=== PATIENT | male | born 1965 | race Caucasian/White ===

== ENCOUNTER 2020-10-23 13:51 | Emergency (ER) | payer SELFPAY ==
--- NOTE | ~2020-10-23 | XR_ITS ---
EXAMINATION: XR chest 1V portable EXAM DATE: 10/23/2020 14:58 INDICATION: Cough, fever. TECHNIQUE: Portable AP frontal chest x-ray was obtained. There is no prior study for comparison. FINDINGS: The lungs are clear. There are no pleural effusions. The cardiomediastinal silhouette is within normal limits. There is no pneumothorax suspected. The bones and soft tissues are unremarkab le. IMPRESSION: No acute cardiopulmonary findings. Reviewed, dictated and finalized at location A.
[2020-10-23 13:53] VITALS: BP 198/133; PULSE 113; RESP 18; TEMP 37.7; O2SAT 99
--- NOTE | 2020-10-23 14:06 | PC.NURSE ---
pt reports he has not taken his blood pressure medications since last month .
--- NOTE | 2020-10-23 14:49 | ED.FEVER ---
HPI - Fever General Chief Complaint: Fever Stated Complaint: fever, Time Seen by Provider: 10/23/20 14:38 History of Present Illness HPI Narrative: 55 yo male presents to the ED for not feeling well. He reports that for the past few days he has had intermittent feeling that he is burning up . He has been taking cold showers and Excedrin, which provides very brief relief. He also reports cough and chest congestion. Additionally he is very nauseated. He has known COVID exposure. He is not vaccinated. No SOB. Related Data Allergies Allergy/AdvReac Type Severity Reaction Status Date / Time No Known Allergies Allergy Verified 10/23/20 13:55 Review of Systems Review of Systems: All systems reviewed & are unremarkable except as noted in HPI and below Eyes: Eyes: Reports no additional eye complaints ENT: Denies sore throat Cardiovascular: Cardiovascular: Denies chest pain Respiratory: Respiratory: Reports chest congestion, Reports cough and Denies dyspnea Gastrointestinal: Gastrointestinal: Denies diarrhea, Reports nausea and Denies vomiting Genitourinary: Genitourinary: Reports no additional male genitourinary complaints Musculoskeletal: Musculoskeletal: Reports myalgias Neurologic: Denies confusion, Denies dizziness and Denies weakness [facility] Past Medical History Medical History (Updated 10/24/20 @ 00:00 by Background [place]) HTN (hypertension) Social History Social History (Updated 10/23/20 @ 15:12 by Abimael Treviño MD) Substance use: never Gender identity (if verbalized by the patient): Male Exam Const: General: no acute distress and alert Orientation/consciousness: patient oriented x3 HENMT: Head: normal to inspection Neck: Neck: normal visual inspection Chest: Chest palpation & inspection: normal inspection of the chest and no tenderness Resp: Effort & Inspection: normal respiratory effort Auscultation: clear to auscultation bilaterally Cardio: Rate: tachycardic Rhythm: regular rhythm GI: GI Palp: Yes Soft to palpation and No Tenderness to palpation present (GI) Skin: General skin exam: normal color Neuro: General: patient oriented x3 and moves all extremities Extrem: General: normal to inspection and no edema Course Vital Signs Vital signs: Vital Signs Temperature 37.7 C H 10/23/20 13:53 Pulse Rate 113 H 10/23/20 13:53 Respiratory Rate 18 10/23/20 13:53 Blood Pressure 198/133 H 10/23/20 13:53 Pulse Oximetry 99 10/23/20 13:53 Temperature 37.7 C H 10/23/20 13:53 Pulse Rate 60 10/23/20 15:59 Respiratory Rate 16 10/23/20 15:59 Blood Pressure 175/124 H 10/23/20 15:59 Pulse Oximetry 100 10/23/20 15:59 MDM - Fever MDM Narrative Medical decision making narrative: BP elevated, noncompliant with meds. O2 saturation normal. Mild temperature elevation and tachycardia. Differential Diagnosis Differential diagnosis: Likely fever of unknown origin and other (COVID-19) Medical Records Attestation: I reviewed the patient's medical records. Imaging Data Radiologist's impression: ITS Impressions Chest X-Ray 10/23/20 14:59 IMPRESSION: No acute cardiopulmonary findings. Discharge Plan Discharge Clinical Impression: Upper respiratory infection Patient Disposition: Home, Self-Care Condition: Stable Instructions: Upper Respiratory Infection (ED) Prescriptions: New acetaminophen 500 mg capsule 1,000 mg PO TID PRN (Reason: fever or pain) Qty: 60 RF: 0 ondansetron HCl [Zofran] 4 mg tablet 4 mg PO Q6H PRN (Reason: nausea and vomiting) Qty: 10 RF: 0 ibuprofen 600 mg tablet 600 mg PO TID PRN (Reason: fever or pain) Qty: 30 RF: 0 Follow-up/Referrals: UNKNOWN,DOCTOR [Primary Care Provider] -
[2020-10-23] MEDS: ACETAMINOPHEN 500 MG TABLET 1000 MG PO (14:54)
[2020-10-23] MEDS: ONDANSETRON HCL ODT 4 MG TABLET 8 MG PO (14:54)
[2020-10-23] MEDS: METOPROLOL SUCCINATE EXT REL 50 MG TABCR PO (15:02)
[2020-10-23 15:59] VITALS: BP 175/124; PULSE 60; RESP 16; O2SAT 100
== END 2020-10-23 16:07 | disposition home or self-care (01) ==
PROVIDERS: Emergency Provider Emergency Medicine
DX: J06.9 Acute upper respiratory infection, unspecified (principal); I10 Essential (primary) hypertension
CPT/HCPCS: 71045; 99283; A9270

== ENCOUNTER 2021-12-29 12:27 | Emergency (ER) | payer MEDICAID, SELFPAY ==
[2021-12-29] VITALS (10 sets, daily range): BP systolic 156–185; BP diastolic 105–126; PULSE 64–71; RESP 13–20; TEMP 36.2; O2SAT 98–100
--- NOTE | 2021-12-29 13:17 | ED.MALEGU ---
HPI - Male Genitourinary General Chief complaint: Urogenital-Male Stated complaint: DIFF URINATING X2 WEEKS Time Seen by Provider: 12/29/21 13:07 Source: patient and RN notes reviewed Mode of arrival: ambulatory Limitations: no limitations History of Present Illness HPI Narrative: This is a 56 year old male with history of hypertension who presents for evaluation of difficulty urinating. Patient states for 2 weeks he has decreased stream with urination in the morning. HE also reports having increased pressure and pain with urinating in the morning. He increases his water intake throughout the day, and his stream normalizes. He also says he does not have pain with urination throughout the day. He also notes that sometimes his urine has a strong odor. He denies hematuria, abdominal pain, nausea, vomiting, back pain, chest pain or shortness of breath. Patient has history of hypertension. He moved the area 2 years ago and he had been out of his medication for 1 year. He started his antihypertensives last week. HE has appointment with Dr. Lackey tomorrow. Related Data Allergies Allergy/AdvReac Type Severity Reaction Status Date / Time No Known Allergies Allergy Verified 12/29/21 12:50 Review of Systems Review of Systems: All systems reviewed & are unremarkable except as noted in HPI and below Constitutional: Constitutional: Denies chills, Denies fatigue and Denies fever(s) Eyes: Eyes: Denies change in vision ENT: Denies nasal congestion Cardiovascular: Cardiovascular: Denies chest pain and Denies radiating jaw, neck or arm pain Respiratory: Respiratory: Denies chest congestion, Denies cough and Denies dyspnea Gastrointestinal: Gastrointestinal: Denies abdominal pain, Denies nausea and Denies vomiting Genitourinary: Genitourinary: Denies hematuria, Reports dysuria, Denies penile discharge, Reports urinary frequency and Denies urinary incontinence Musculoskeletal: Musculoskeletal: Denies back pain PMFSH Past Medical History Medical History HTN (hypertension) Social History Social History Substance use: never Gender identity (if verbalized by the patient): Male Exam Narrative: GENERAL: Well-appearing, well-nourished, and in no acute distress. HEAD: Normocephalic, atraumatic EYES: PERRLA and EOMI, conjunctiva clear without discharge THROAT:Mucous membranes moist, Oropharynx normal without erythema, exudate, peritonsillar swelling or fluctuance NECK: Supple, without lymphadenopathy or mass RESPIRATORY: No respiratory distress, Airway patent, Respirations non-labored, Clear to auscultation without rales, rhonchi or wheeze HEART: Regular rate and rhythm. No murmur heard. Normal peripheral pulses. ABDOMEN: Soft, nontender, nondistended, normal active bowel sounds. No masses. No rebound or guarding, No organomegaly. EXTREMITIES: No edema, normal strength with full range of motion. SKIN: Warm, dry, normal color without rash NEURO: Alert and oriented x3. CN 2-12 grossly intact. No focal deficits. PSYCH: Normal mood and affect. Course Reevaluation(s) Reevaluation #1: Patient has been been hypertensive but he is symptomatic . He is stable for discharge. He has appointment with Dr. Lackey tomorrow. I spoke to Dr. Lackey to make him aware of BP and he will take care of it. Patient does not have significant urinary retention and UA does not show infection. Date: 12/29/21 Time: 15:15 Vital Signs Vital signs: Vital Signs Temperature 97.1 F L 12/29/21 12:30 Pulse Rate 71 12/29/21 12:30 Respiratory Rate 16 12/29/21 12:30 Blood Pressure 156/126 H 12/29/21 12:30 Pulse Oximetry 100 12/29/21 12:30 Temperature 97.1 F L 12/29/21 12:30 Pulse Rate 66 12/29/21 14:30 Respiratory Rate 20 12/29/21 14:30 Blood Pressure 165/105 H 12/29/21 14:03 Pulse Oximetry 100 12/29/21 14
[2021-12-29 13:40] LABS: Basophils Percent Auto 0.5 % (0.2-1.2); Eosinophils Absolute Auto 0.1 K/mm3 (0-0.3); Eosinophils Percent Auto 0.6 % (0-4.4); Hemoglobin 15.4 g/dL (14.0-18.0); Immature Granulocyte Absolute 0.02 K/mm3 (0.00-0.031); Immature Granulocyte Percent A 0.3 % (0-0.5); Lymphocytes Absolute Auto 0.61 K/mm3 (0.9-3.2); Lymphocytes Percent Auto 7.6 % (18.3-44.2); Mean Corpuscular Hemoglobin 32.5 pg (26-34); Mean Corpuscular Volume 92.8 fl (80-100); Mean Platelet Volume 10.3 fl (7.4-10.4); Monocytes Absolute Auto 0.5 K/mm3 (0.1-0.6); Monocytes Percent Auto 5.9 % (2.6-8.5); Neutrophils Absolute Auto 6.8 K/mm3 (1.3-6.7); Neutrophils Percent Auto 85.1 % (45.5-73.1); Platelet Count Result 260 k/mm3 (150-375); Red Blood Count 4.74 M/mm3 (4.6-6.20); Red Cell Distribution Width 13.5 % (11.5-14.5)
[2021-12-29 13:54] LABS: Alanine Aminotransferase 24 U/L (6-50); Albumin Level 4.4 g/dL (3.5-5.1); Alkaline Phosphatase 79 U/L (38-126); Anion Gap 10 mmol/L (8-16); Aspartate Amino Transferase 24 U/L (17-59); Bilirubin,Total 0.8 mg/dL (0.2-1.3); Blood Urea Nitrogen 14 mg/dL (9-20); Calcium 8.6 mg/dL (8.4-10.2); Carbon Dioxide 25 mmol/L (22-30); Chloride 105 mmol/L (98-107); Estimated CRCL calculation 58 ml/min; Estimated Glomerular Filt Rate > 60; Glucose 102 mg/dL (65-110); Potassium 4.3 mmol/L (3.4-5.0); Sodium 140 mmol/L (137-145)
[2021-12-29 13:59] LABS: Appearance Urine Clear (Clear); Bilirubin Urine Negative (Negative); Blood Urine Negative (Negative); Color Urine Yellow (Yellow); Glucose Urine UA Trace mg/dL (Negative); Ketones Urine Negative (Negative); Leukocyte Esterase Ur Negative LEU/UL (Negative); Nitrate Urine Negative (Negative); Protein Urine 1+ mg/dL (Negative); Specific Grav Ur 1.015 (1.001-1.035); Urobilinogen Urine 0.2 mg/dL (<2.0)
[2021-12-29 14:13] LABS: RBC Urine 0-2 /hpf (0-2); WBC Urine 0-3 /hpf
[2021-12-29 14:14] LABS: Add Urine Microscopic? YES
== END 2021-12-29 15:50 | disposition home or self-care (01) ==
PROVIDERS: Emergency Provider General Practice
DX: R30.0 Dysuria (principal); I10 Essential (primary) hypertension
CPT/HCPCS: 36415; 80053; 81001; 85025; 99283

== ENCOUNTER 2022-03-31 15:42 | Outpatient (CLI) | payer MEDICAID, SELFPAY ==
[2022-03-31 15:59] LABS: Add Urine Microscopic? NO; Appearance Urine Clear (Clear); Bilirubin Urine Negative (Negative); Blood Urine Negative (Negative); Color Urine Yellow (Yellow); Glucose Urine UA Negative (Negative); Ketones Urine Negative (Negative); Leukocyte Esterase Ur Negative LEU/UL (Negative); Nitrate Urine Negative (Negative); Protein Urine Negative (Negative); Urobilinogen Urine 0.2 mg/dL (<2.0); pH Urine 6.5 (5.0-9.0)
[2022-03-31 16:06] LABS: Alanine Aminotransferase 18 U/L (6-50); Albumin Level 4.6 g/dL (3.5-5.1); Alkaline Phosphatase 74 U/L (38-126); Anion Gap 6 mmol/L (8-16); Aspartate Amino Transferase 23 U/L (17-59); Bilirubin,Total 0.5 mg/dL (0.2-1.3); Blood Urea Nitrogen 13 mg/dL (9-20); Calcium 8.6 mg/dL (8.4-10.2); Carbon Dioxide 26 mmol/L (22-30); Chloride 110 mmol/L (98-107); Cholesterol 211 mg/dL (0-200); Estimated Glomerular Filt Rate > 60; Glucose 99 mg/dL (65-110); HDL Direct 44 mg/dL; Potassium 3.9 mmol/L (3.4-5.0); Sodium 142 mmol/L (137-145); Triglycerides 158 mg/dL (<150)
[2022-03-31 16:17] LABS: LDL Cholesterol Direct 106 mg/dL
[2022-03-31 16:38] LABS: Prostate Specific Antigen 3.4 ng/mL (< OR = 4.0)
[2022-04-04 12:58] LABS: Vitamin D 1,25 (OH)2 Total 49 pg/mL (18-72); Vitamin D2 1,25 (OH)2 <8 pg/mL; Vitamin D3 1,25 (OH)2 49 pg/mL
== END 2022-03-31 15:43 | disposition home or self-care (01) ==
LOC: ANHLAB 15:45
PROVIDERS: Visit Provider Emergency Medicine
DX: I10 Essential (primary) hypertension (principal); Z12.5 Encounter for screening for malignant neoplasm of prostate; R30.0 Dysuria
CPT/HCPCS: 36415; 80053; 80061; 81003; 82652; 84153; G0103

== ENCOUNTER 2023-01-12 14:06 | Outpatient (CLI) | payer OTHER, MEDICAID, SELFPAY ==
[2023-01-12 15:25] LABS: Alanine Aminotransferase 14 U/L (6-50); Albumin Level 4.1 g/dL (3.5-5.1); Alkaline Phosphatase 68 U/L (38-126); Anion Gap 6 mmol/L (8-16); Aspartate Amino Transferase 19 U/L (17-59); Bilirubin,Total 0.7 mg/dL (0.2-1.3); Blood Urea Nitrogen 16 mg/dL (9-20); Calcium 8.5 mg/dL (8.4-10.2); Carbon Dioxide 26 mmol/L (22-30); Chloride 107 mmol/L (98-107); Cholesterol 211 mg/dL (0-200); Estimated Glomerular Filt Rate > 60; Glucose 107 mg/dL (65-110); HDL Direct 35 mg/dL; Potassium 3.8 mmol/L (3.4-5.0); Sodium 139 mmol/L (137-145); Triglycerides 152 mg/dL (<150)
[2023-01-12 15:36] LABS: LDL Cholesterol Direct 114 mg/dL
== END 2023-01-12 14:07 | disposition home or self-care (01) ==
LOC: ANHLAB 14:09
PROVIDERS: PCP Emergency Medicine; Visit Provider Emergency Medicine
DX: Z13.220 Encounter for screening for lipoid disorders (principal); I10 Essential (primary) hypertension; Z12.5 Encounter for screening for malignant neoplasm of prostate
CPT/HCPCS: 36415; 80053; 80061; 84153; G0103

== ENCOUNTER 2023-01-24 15:42 | Outpatient (CLI) | payer OTHER, MEDICAID, SELFPAY | END 2023-01-24 15:43 | disposition home or self-care (01) | LOC: ANHLAB 15:43 | PROVIDERS: PCP Emergency Medicine; Visit Provider Emergency Medicine | DX: E03.9 Hypothyroidism, unspecified (principal) | CPT/HCPCS: 36415; 84443 ==

== ENCOUNTER 2023-05-29 15:18 | Outpatient (CLI) | payer OTHER, MEDICAID, SELFPAY ==
[2023-05-29 15:53] LABS: Alanine Aminotransferase 13 U/L (6-50); Albumin Level 4.4 g/dL (3.5-5.1); Alkaline Phosphatase 68 U/L (38-126); Anion Gap 10 mmol/L (8-16); Aspartate Amino Transferase 18 U/L (17-59); Bilirubin,Total 0.7 mg/dL (0.2-1.3); Blood Urea Nitrogen 13 mg/dL (9-20); Carbon Dioxide 21 mmol/L (22-30); Chloride 108 mmol/L (98-107); Cholesterol 218 mg/dL (0-200); Estimated Glomerular Filt Rate > 60; Glucose 108 mg/dL (65-110); HDL Direct 56 mg/dL; Potassium 3.6 mmol/L (3.4-5.0); Sodium 139 mmol/L (137-145); Triglycerides 87 mg/dL (<150)
[2023-05-29 16:04] LABS: LDL Cholesterol Direct 127 mg/dL
[2023-05-29 17:22] LABS: Vitamin D 25 Hydroxy 15.9 ng/mL
== END 2023-05-29 15:19 | disposition home or self-care (01) ==
LOC: ANHLAB 15:20
PROVIDERS: PCP Emergency Medicine; Visit Provider Emergency Medicine
DX: E78.5 Hyperlipidemia, unspecified (principal); I10 Essential (primary) hypertension; E55.9 Vitamin D deficiency, unspecified
CPT/HCPCS: 36415; 80053; 80061; 82306

== ENCOUNTER 2023-11-19 14:38 | Outpatient (CLI) | payer OTHER, MEDICAID, SELFPAY ==
[2023-11-19 15:25] LABS: Alanine Aminotransferase 14 U/L (6-50); Albumin Level 4.6 g/dL (3.5-5.1); Alkaline Phosphatase 66 U/L (38-126); Anion Gap 10 mmol/L (4-12); Aspartate Amino Transferase 25 U/L (17-59); Bilirubin,Total 0.8 mg/dL (0.2-1.3); Blood Urea Nitrogen 14 mg/dL (9-20); Calcium 9.2 mg/dL (8.4-10.2); Carbon Dioxide 25 mmol/L (22-30); Chloride 105 mmol/L (98-107); Cholesterol 231 mg/dL (0-200); Estimated Glomerular Filt Rate > 60; Glucose 94 mg/dL (65-110); HDL Direct 50 mg/dL; Potassium 3.4 mmol/L (3.4-5.0); Sodium 140 mmol/L (137-145); Triglycerides 123 mg/dL (<150)
[2023-11-19 15:36] LABS: LDL Cholesterol Direct 131 mg/dL
[2023-11-23 16:48] LABS: Testosterone Free 67.8 pg/mL (35.0-155.0); Testosterone Total 506 ng/dL (250-1100)
== END 2023-11-19 14:39 | disposition home or self-care (01) ==
LOC: ANHLAB 14:43
PROVIDERS: PCP Emergency Medicine; Visit Provider Emergency Medicine
DX: E78.5 Hyperlipidemia, unspecified (principal); R53.83 Other fatigue; E55.9 Vitamin D deficiency, unspecified
CPT/HCPCS: 36415; 80053; 80061; 82306; 84402; 84403

== ENCOUNTER 2024-04-21 12:00 | Emergency (ER) | payer MEDICAID, SELFPAY ==
--- NOTE | ~2024-04-21 | XR_ITS ---
EXAMINATION: XR hand RT min 3V DATE: 04/21/2024 13:37 INDICATION: Right hand dog bite. TECHNIQUE: 3 views of right hand were obtained. COMPARISON: None. FINDINGS: Alignment is normal. No fracture. 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 IMPRESSION: 1. No fracture or radiopaque foreign body. Reviewed, dictated and finalized at location B. [facility]
[2024-04-21 12:12] VITALS: BP 157/94; PULSE 67; RESP 16; TEMP 36.7; O2SAT 99
--- NOTE | 2024-04-21 13:16 | ED_ITS ---
HPI - General Adult General Chief complaint: Animal Bite Stated complaint: dog bite to right hand Time Seen by Provider: 04/21/24 12:28 History of Present Illness HPI narrative: 59-year-old male presents to the emergency department for evaluation for a dog bite to the palmar aspect of the right hand. Injury happened today. Patient reports the dog is his own. Dog is up-to-date on its immunizations. Patient denies any other injury. Patient's tetanus is not up-to-date. Patient denies any underlying medication allergies. Related Data Allergies Allergy/AdvReac Type Severity Reaction Status Date / Time No Known Allergies Allergy Verified 04/21/24 12:11 Review of Systems Review of Systems: All systems reviewed & are unremarkable except as noted in HPI and below PMFSH Past Medical History Medical History Dysuria HTN (hypertension) Social History Social History Smoking status: Never smoker Substance use: never Do You Feel Safe in your Home?: Yes Lack of Transportation: No Lack of Food: Never True Current Housing: I Have Housing Concerned About Future Housing: YES Difficulty Paying Gas/Electric Bills: YES Difficulty Paying for Meds: No Currently Unemployed: YES Education: High School Diploma/GED Difficulty w/ Childcare or Family Care: No Gender identity (if verbalized by the patient): Male Exam Narrative: APPEARANCE: Well appearing, no pain, no distress, well-nourished. HEAD: normocephalic, atraumatic. EYES: PERRLA/EOMI, conjunctivae clear. NOSE: Normal no drainage EARS:TMS clear with good light reflex. THROAT: Pharynx clear, no exudate. NECK: Supple. No adenopathy, no masses. RESPIRATORY: Airway patent, respirations nonlabored. Clear to auscultation bilaterally, no rales, rhonchi, wheezing. CARDIOVASCULAR: Regular rate and rhythm without murmurs rubs or gallops. ABDOMINAL: Soft, nontender, nondistended, normal bowel sounds MUSCULOSKELETAL: Moves all extremities. Strength/ROM intact, No edema, No calf tenderness. NEURO: Alert. Cranial nerves II through XII intact. Good gait. Good coordination SKIN: 3 cm laceration to the palmar aspect of the right hand Course Vital Signs Vital signs: Vital Signs Temperature 98.1 F 04/21/24 12:12 Pulse Rate 67 04/21/24 12:12 Respiratory Rate 16 04/21/24 12:12 Blood Pressure 157/94 H 04/21/24 12:12 Pulse Oximetry 99 04/21/24 12:12 Oxygen Delivery Room Air 04/21/24 12:12 Temperature 97.6 F 04/21/24 14:24 Pulse Rate 61 04/21/24 14:24 Respiratory Rate 15 04/21/24 14:24 Blood Pressure 159/64 H 04/21/24 14:24 Pulse Oximetry 98 04/21/24 14:24 Oxygen Delivery Room Air 04/21/24 12:12 Procedures Laceration Laceration 1: Site: upper extremity Side (If applicable): right Size (cm): 3 Description: linear Depth: simple, single layer Local Anesthetic: lidocaine 1% Amount of anesthesia used (mL): 3 Pre-repair: wound explored, irrigated and irrigated extensively ====== Skin Level ====== Skin layer closed with: prolene Size (cm): 4-0 Number of sutures: 3 Technique: simple, interrupted ====== Subcutaneous Layer ====== ====== Muscle Layer ====== ====== Tendon Layer ====== Medical Decision Making MDM Narrative Medical decision making narrative: 59-year-old male presents to the emergency department for evaluation for a laceration to his right hand from a dog bite. Wound was loosely approximated due to excessive gaping. X-ray was ordered to evaluate for underlying fracture this was negative. Patient's tetanus was updated. Patient was started on Augmentin emergency department. Differential Diagnosis Differential Diagnosis: Dog bite, laceration hand fracture Vital Signs Vital Signs: Vital Signs Temperature 98.1 F 04/21/24 12:12 Pulse Rate 67 04/21/24 12:12 Respiratory Rate 16 04/21/24 12:12 Blood Pressure 157/94 H 04/21/24 12:12 Pulse Oximetry 99 04/21/24 12:12 Oxygen Delivery Room Air 04/21/24 12:12 Temperature 97.6 F 04/21/24 14:24 Pulse Rate 61 04/21/24 14:24 Respiratory Rate 15 04/21/24 14:24 Blood Pressure 159/64 H 04/21/24 14:24 Pulse Oximetry 98 04/21/24 14:24 Oxygen Delivery Room Air 04/21/24 12:12 Imaging Data Radiologist's impression: Impressions Hand X-Ray 04/21/24 13:39 IMPRESSION: 1. No fracture or radiopaque foreign body. Discharge Plan Discharge Clinical Impression: Dog bite, Laceration Patient Disposition: Home, Self-Care Condition: Stable Instructions: Antibiotic Form, Animal Bite (ED), Care For Your Stitches (ED) Additional Instructions: Antibiotic as directed until completed. Wound care as directed. Have close follow-up with your primary care physician for a wound check in the next 2 days. Sutures need to be removed in 5-7 days. Patient Language: Belarusian Prescriptions: New amoxicillin-pot clavulanate 875-125 mg tablet 1 tablet PO Q12H 7 Days Qty: 14 0RF No Action escitalopram oxalate [Lexapro] 10 mg tablet 10 mg PO DAILY Qty: 90 2RF omeprazole 20 mg capsule,delayed release(DR/EC) 20 mg PO DAILY Qty: 90 2RF metoprolol succinate 100 mg tablet extended release 24 hr See Rx Instructions .ROUTE .COMPLEX Qty: 180 2RF Dose Instruction: Take 1 tablet by mouth twice daily Rx Instructions: Take 1 tablet by mouth twice daily lisinopril 40 mg tablet See Rx Instructions .ROUTE .COMPLEX Qty: 90 2RF Dose Instruction: Take 1 tablet by mouth twice daily Rx Instructions: Take 1 tablet by mouth daily amlodipine 5 mg tablet 5 mg PO DAILY Qty: 90 2RF acetaminophen 500 mg capsule 1,000 mg PO TID PRN (Reason: fever or pain) Qty: 60 0RF ibuprofen 600 mg tablet 600 mg PO TID PRN (Reason: fever or pain) Qty: 30 0RF cholecalciferol (vitamin D3) 1,250 mcg (50,000 unit) capsule 1,250 mcg PO WEEKLY Qty: 12 2RF finasteride 5 mg tablet See Rx Instructions .ROUTE .COMPLEX Qty: 90 2RF Dose Instruction: Take 1 tablet by mouth once daily Rx Instructions: Take 1 tablet by mouth once daily tamsulosin 0.4 mg capsule See Rx Instructions .ROUTE .COMPLEX Qty: 90 2RF Dose Instruction: Take 1 capsule by mouth once daily Rx Instructions: Take 1 capsule by mouth once daily Follow-up/Referrals: Mandis,Pilo E., MD [Primary Care Provider] -
[2024-04-21] MEDS: AMOXICILLIN/CLAVULANATE K 875-125 MG TAB 1 TABLET PO (14:12)
[2024-04-21] MEDS: TETANUS,DIPHTHERIA,AC PERTUSSIS ADULT (0.5 ML) BOOSTRIX IM (14:13)
[2024-04-21 14:24] VITALS: BP 159/64; PULSE 61; RESP 15; TEMP 36.4; O2SAT 98
--- OUTSIDE RECORDS SUMMARY | 2024-04-24 13:07 | XMS_ITS | Continuity of Care Document ---
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 It does not include entries that were removed or entered in error. Problem Status Onset Date Problem Type Date of Resolution Comments Source Depression Active Condition [facility] Elevated PSA Active Condition [facility] Headache Active Condition [facility] Hyperlipidemia Active Condition [facility] Diagnosis: ICD-10-CM F32.A Depression, unspecified Active Diagnosis [facility] Diagnosis: ICD-10-CM Z71.9 Counseling, unspecified Active Diagnosis [facility] Diagnosis: ICD-10-CM R03.0 Elevated blood-pressure reading, w/o diagnosis of htn Active Diagnosis [facility] Diagnosis: ICD-10-CM R45.851 Suicidal ideations Active Diagnosis [facility] Diagnosis: ICD-10-CM Z23 Encounter for immunization Active Diagnosis [facility] Diagnosis: ICD-10-CM Z59.00 Homelessness unspecified Active Diagnosis [facility] Diagnosis: ICD-10-CM Z71.89 Other specified counseling Active Diagnosis [facility] Diagnosis: ICD-10-CM Z59.811 Housing instability, housed, with risk of homelessness Active Diagnosis [facility] Diagnosis: ICD-10-CM F33.2 Major depressv disorder, recurrent severe w/o psych features Active Diagnosis [facility] Medications Combined list of outpatient medications from Department of Defense and Veterans Affairs facilities.Medications provided include 1) outpatient medications from the last 15 months, and 2) patient-reported medications. Medication Details Route Status Patient Instructions Prescription Expires Prescription Number Last Dispense Date Ordering Provider Order Date Order Qty Source CHOLECALCIF CARMEN 25MCG (1,000UNIT) TAB TAKE ONE TABLET BY MOUTH ONCE A DAY ORAL ACTIVE NAYA,ESSENCE A D 2022 [facility] ESCITALOPRA M OXALATE 10MG TAB TAKE ONE-HALF TABLET BY MOUTH ONCE A DAY FOR 14 DAYS, THEN TAKE ONE TABLET ONCE A DAY FOR 46 DAYS ORAL ACTIVE 02/13/2025 [id number] 4 JERALD RAYGOZA 2023 53 [facility] FLUOXETINE HCL 10MG CAP TAKE ONE CAPSULE BY MOUTH EVERY MORNING ORAL 02/06/2024 [id number] IRENE DOWNS JR 2022 30 [facility] Immunizations Combined list of available immunizations from the Department of Defense and Veterans Affairs facilities. Immunization Series Date Given Administered By Site Reaction Lot Number CVX Code Drug Automobile Bumper Straightener Status Comments Source INFLUENZA, SPLIT VIRUS, TRIVALENT, PF 2023 PEREZ FOSTER A LEFT DELTO ID [id number] 140 complet ed [facility] COVID-19 (PFIZER), MRNA, LNP-S, PF, NORTH-SUCROSE, 30 MCG/0.3 ML (AGES 12+ YEARS) 2023 PEREZ FOSTER A RIGHT DELTO ID [id number] 309 complet ed [facility] INFLUENZA, INJECTABLE, QUADRIVALENT, PRESERVATIVE FREE 2022 GIN DUVALL A LEFT DELTO ID [id number] 150 complet ed [facility] TDAP 2022 PEREZ FOSTER A LEFT DELTO ID [id number] 115 complet ed [facility] Results Combined list of recent chemistry, hematology and other laboratory results from Department of Defense and Veterans Affairs, ranging from 15 months to all on record, depending upon the facility. Order Name Results Value Reference Range Date Interpretation Specimen Comments Source URINALYSI S W/ CX REFLEX (STL-PB) COLOR OF URINE Light- Yellow 12/24 Specimen Type: URINE No comment entered. Ordering Provider: SOBEIDA PERSON Report Released Date/Time: Dec 25, 2023 01:57 PM Reporting Lab: [facility] [address] [facility] [address] Performing Lab: [address] [phone] [facility] URINALYSI S W/ CX REFLEX (STL-PB) BILIRUBIN.T OTAL [PRESENCE] IN URINE BY TEST STRIP Negati vemg/d L 12/24 Specimen Type: URINE No comment entered. Ordering Provider: SOBEIDA PERSON Report Released Date/Time: Dec 25, 2023 01:57 PM Reporting Lab: [address] [address] Performing Lab: [place] [phone] URINALYSI S W/ CX REFLEX (STL-PB) PH OF URINE BY TEST STRIP 5.5 5.0 - 8.0 12/24 Specimen Type: URINE No comment entered. Ordering Provider: SOBEIDA PERSON Report Released Date/Time: Dec 25, 2023 01:57 PM Reporting Lab: [address] [address] Performing Lab: [address] [phone] [place] [address] URINALYSI S W/ CX REFLEX (STL-PB) LEUKOCYTES [#/AREA] IN URINE SEDIMENT BY MICROSCOPY HIGH POWER FIELD 1 /[HPF] 0 - 5 12/24 Specimen Type: URINE No comment entered. Ordering Provider: SOBEIDA PERSON Report Released Date/Time: Dec 25, 2023 01:57 PM Reporting Lab: [address] [phone] Performing Lab: [address] [phone] [place] [address] URINALYSI S W/ CX REFLEX (STL-PB) APPEARANCE OF URINE Clear 12/24 Specimen Type: URINE No comment entered. Ordering Provider: SOBEIDA PERSON Report Released Date/Time: Dec 25, 2023 01:57 PM Reporting Lab: [address] [phone] Performing Lab: [address] [phone] [place] [address] URINALYSI S W/ CX REFLEX (STL-PB) NITRITE [PRESENCE] IN URINE BY TEST STRIP Negati vemg/d L 12/24 Specimen Type: URINE No comment entered. Ordering Provider: SOBEIDA PERSON Report Released Date/Time: Dec 25, 2023 01:57 PM Reporting Lab: [place] [phone] Performing Lab: [address] URINALYSI S W/ CX REFLEX (STL-PB) MUCUS [PRESENCE] IN URINE SEDIMENT BY LIGHT MICROSCOPY RARE/[ LPF] 12/24 Specimen Type: URINE No comment entered. Ordering Provider: SOBEIDA PERSON Report Released Date/Time: Dec 25, 2023 01:57 PM Reporting Lab: [address] [address] Performing Lab: [place] [phone] URINALYSI S W/ CX REFLEX (STL-PB) GLUCOSE [MASS/VOLUM E] IN URINE BY TEST STRIP Normal mg/dL 12/24 Specimen Type: URINE No comment entered. Ordering Provider: SOBEIDA PERSON Report Released Date/Time: Dec 25, 2023 01:57 PM Reporting Lab: [address] [phone] Performing Lab: [address] [phone] URINALYSI S W/ CX REFLEX (STL-PB) PROTEIN [MASS/VOLUM E] IN URINE BY TEST STRIP 20 mg/dL - 20 12/24 H Specimen Type: URINE No comment entered. Ordering Provider: SOBEIDA PERSON Report Released Date/Time: Dec 25, 2023 01:57 PM Reporting Lab: [facility] [address] [place], [place] [phone] Performing Lab: [facility] [address] [place], [place] [phone] [address] URINALYSI S W/ CX REFLEX (STL-PB) URN.UROBILI NOGEN Normal mg/dL 12/24 Specimen Type: URINE No comment entered. Ordering Provider: SOBEIDA PERSON Report Released Date/Time: Dec 25, 2023 01:57 PM Reporting Lab: [facility] [address] [place] [address] Performing Lab: [address] URINALYSI S W/ CX REFLEX (STL-PB) HEMOGLOBIN [MASS/VOLUM E] IN URINE BY TEST STRIP Negati vemg/d L 12/24 Specimen Type: URINE No comment entered. Ordering Provider: SOBEIDA PERSON Report Released Date/Time: Dec 25, 2023 01:57 PM Reporting Lab: [facility] [address] [place] [phone] Performing Lab: [facility] [address] [place], [place] [phone] [place] [address] URINALYSI S W/ CX REFLEX (STL-PB) KETONES [MASS/VOLUM E] IN URINE BY TEST STRIP Negati vemg/d L 12/24 Specimen Type: URINE No comment entered. Ordering Provider: SOBEIDA PERSON Report Released Date/Time: Dec 25, 2023 01:57 PM Reporting Lab: [facility] [address] [place], [place] [phone] Performing Lab: [facility] [address] [place] [address] URINALYSI S W/ CX REFLEX (STL-PB) URN.LEUK.ES T. Negati vemg/d L 12/24 Specimen Type: URINE No comment entered. Ordering Provider: SOBEIDA PERSON Report Released Date/Time: Dec 25, 2023 01:57 PM Reporting Lab: [facility] [address] [place] [phone] Performing Lab: [address] [phone] [place] [address] URINALYSI S W/ CX REFLEX (STL-PB) SPECIFIC GRAVITY OF URINE 1.017 1.005 - 1.029 12/24 Specimen Type: URINE No comment entered. Ordering Provider: SOBEIDA PERSON Report Released Date/Time: Dec 25, 2023 01:57 PM Reporting Lab: [place] [id number] Performing Lab: [address] COMPREHEN SIVE METABOLIC PANEL CREATININE [MASS/VOLUM E] IN SERUM OR PLASMA 1.13 mg/dL 0.7 - 1.3 12/24 Specimen Type: PLASMA Comment: No hemolysis noted. Ordering Provider: SOBEIDA PERSON Report Released Date/Time: Dec 17, 2023 11:30 AM Reporting Lab: [address] [phone] Performing Lab: [address] [phone] [place] [address] COMPREHEN SIVE METABOLIC PANEL UREA NITROGEN [MASS/VOLUM E] IN SERUM OR PLASMA 13.2 mg/dL 9.0 - 25.0 12/24 Specimen Type: PLASMA Comment: No hemolysis noted. Ordering Provider: SOBEIDA PERSON Report Released Date/Time: Dec 17, 2023 11:30 AM Reporting Lab: [facility] [address] [place] [phone] Performing Lab: [facility] [address] [place] [phone] [place] [address] COMPREHEN SIVE METABOLIC PANEL GLUCOSE [MASS/VOLUM E] IN SERUM OR PLASMA 100 mg/dL 72 - 99 12/24 H Specimen Type: PLASMA Comment: No hemolysis noted. Ordering Provider: SOBEIDA PERSON Report Released Date/Time: Dec 17, 2023 11:30 AM Reporting Lab: [facility] [address] [place] [phone] Performing Lab: [facility] [address] [place] [phone] [facility] COMPREHEN SIVE METABOLIC PANEL SODIUM [MOLES/VOLU ME] IN SERUM OR PLASMA 141 meq/L 136 - 145 12/24 Specimen Type: PLASMA Comment: No hemolysis noted. Ordering Provider: SOBEIDA PERSON Report Released Date/Time: Dec 17, 2023 11:30 AM Reporting Lab: [facility] [address] [place] [phone] Performing Lab: [facility] [address] [place] [phone] [place] [address] COMPREHEN SIVE METABOLIC PANEL POTASSIUM [MOLES/VOLU ME] IN SERUM OR PLASMA 3.7 meq/L 3.5 - 5 12/24 Specimen Type: PLASMA Comment: No hemolysis noted. Ordering Provider: SOBEIDA PERSON Report Released Date/Time: Dec 17, 2023 11:30 AM Reporting Lab: [facility] [address] [place] [phone] Performing Lab: [facility] [address] [place] [phone] [facility] COMPREHEN SIVE METABOLIC PANEL CHLORIDE [MOLES/VOLU ME] IN SERUM OR PLASMA 109 meq/L 98 - 107 12/24 H Specimen Type: PLASMA Comment: No hemolysis noted. Ordering Provider: SOBEIDA PERSON Report Released Date/Time: Dec 17, 2023 11:30 AM Reporting Lab: [facility] [address] [place] [phone] Performing Lab: [facility] [address] [place] [phone] [facility] COMPREHEN SIVE METABOLIC PANEL CARBON DIOXIDE, TOTAL [MOLES/VOLU ME] IN SERUM OR PLASMA 20 meq/L 22 - 31 12/24 L Specimen Type: PLASMA Comment: No hemolysis noted. Ordering Provider: SOBEIDA PERSON Report Released Date/Time: Dec 17, 2023 11:30 AM Reporting Lab: [address] [phone] Performing Lab: [address] [phone] [facility] COMPREHEN SIVE METABOLIC PANEL CALCIUM [MASS/VOLUM E] IN SERUM OR PLASMA 9.0 mg/dL 8.4 - 10.4 12/24 Specimen Type: PLASMA Comment: No hemolysis noted. Ordering Provider: SOBEIDA PERSON Report Released Date/Time: Dec 17, 2023 11:30 AM Reporting Lab: [address] [phone] Performing Lab: [place] [phone] [place] [address] COMPREHEN SIVE METABOLIC PANEL PROTEIN [MASS/VOLUM E] IN SERUM OR PLASMA 7.1 g/dL 6 - 8.6 12/24 Specimen Type: PLASMA Comment: No hemolysis noted. Ordering Provider: SOBEIDA PERSON Report Released Date/Time: Dec 17, 2023 11:30 AM Reporting Lab: [address] [phone] Performing Lab: [address] [phone] [facility] COMPREHEN SIVE METABOLIC PANEL ALBUMIN [MASS/VOLUM E] IN SERUM OR PLASMA 4.4 g/dL 3.4 - 5 12/24 Specimen Type: PLASMA Comment: No hemolysis noted. Ordering Provider: SOBEIDA PERSON Report Released Date/Time: Dec 17, 2023 11:30 AM Reporting Lab: [facility] [address] [place] [phone] Performing Lab: [address] [phone] [facility] COMPREHEN SIVE METABOLIC PANEL BILIRUBIN.T OTAL [MASS/VOLUM E] IN SERUM OR PLASMA 0.6 mg/dL 0.2 - 1.2 12/24 Specimen Type: PLASMA Comment: No hemolysis noted. Ordering Provider: SOBEIDA PERSON Report Released Date/Time: Dec 17, 2023 11:30 AM Reporting Lab: [address] [phone] Performing Lab: [address] [phone] [facility] COMPREHEN SIVE METABOLIC PANEL ALKALINE PHOSPHATASE [ENZYMATIC ACTIVITY/VO LUME] IN SERUM OR PLASMA 70 U/L 40 - 150 12/24 Specimen Type: PLASMA Comment: No hemolysis noted. Ordering Provider: SOBEIDA PERSON Report Released Date/Time: Dec 17, 2023 11:30 AM Reporting Lab: [address] [phone] Performing Lab: [address] [phone] [facility] COMPREHEN SIVE METABOLIC PANEL ASPARTATE AMINOTRANSF ERASE [ENZYMATIC ACTIVITY/VO LUME] IN SERUM OR PLASMA 13 U/L 5 - 34 12/24 Specimen Type: PLASMA Comment: No hemolysis noted. Ordering Provider: SOBEIDA PERSON Report Released Date/Time: Dec 17, 2023 11:30 AM Reporting Lab: [address] [address] Performing Lab: [address] [phone] [facility] COMPREHEN SIVE METABOLIC PANEL ALANINE AMINOTRANSF ERASE [ENZYMATIC ACTIVITY/VO LUME] IN SERUM OR PLASMA 13 U/L 8 - 40 12/24 Specimen Type: PLASMA Comment: No hemolysis noted. Ordering Provider: SOBEIDA PERSON Report Released Date/Time: Dec 17, 2023 11:30 AM Reporting Lab: [address] [phone] Performing Lab: [address] [phone] [facility] COMPREHEN SIVE METABOLIC PANEL GLOMERULAR FILTRATION RATE/1.73 SQ M.PREDICTED [VOLUME RATE/AREA] IN SERUM, PLASMA OR BLOOD BY CREATININE- BASED FORMULA (CKD-EPI 2020) 75.8 60 12/24 Specimen Type: PLASMA Comment: No hemolysis noted. Ordering Provider: SOBEIDA PERSON Report Released Date/Time: Dec 17, 2023 11:30 AM Reporting Lab: [facility] [address] [place] [phone] Performing Lab: [address] [phone] [facility] LIPID PANEL (STL) CHOLESTEROL [MASS/VOLUM E] IN SERUM OR PLASMA 219 mg/dL 0 - 200 12/24 H Specimen Type: PLASMA Comment: No hemolysis noted. Ordering Provider: SOBEIDA PERSON Report Released Date/Time: Dec 17, 2023 11:30 AM Reporting Lab: [facility] [address] [place] [phone] Performing Lab: [facility] [address] [place] [phone] [facility] LIPID PANEL (STL) TRIGLYCERID E [MASS/VOLUM E] IN SERUM OR PLASMA 118 mg/dL 0 - 150 12/24 Specimen Type: PLASMA Comment: No hemolysis noted. Ordering Provider: SOBEIDA PERSON Report Released Date/Time: Dec 17, 2023 11:30 AM Reporting Lab: [facility] [address] [place] [phone] Performing Lab: [facility] [address] [place] [phone] [facility] LIPID PANEL (STL) CHOLESTEROL IN LDL [MASS/VOLUM E] IN SERUM OR PLASMA BY CALCULATION 144 mg/dL 12/24 Specimen Type: PLASMA Comment: No hemolysis noted. Ordering Provider: SOBEIDA PERSON Report Released Date/Time: Dec 17, 2023 11:30 AM Reporting Lab: [facility] [address] [place] [phone] Performing Lab: [facility] [address] [place] [phone] [facility] LIPID PANEL (STL) CHOLESTEROL IN HDL [MASS/VOLUM E] IN SERUM OR PLASMA 51 mg/dL 40 12/24 Specimen Type: PLASMA Comment: No hemolysis noted. Ordering Provider: SOBEIDA PERSON Report Released Date/Time: Dec 17, 2023 11:30 AM Reporting Lab: [address] [phone] Performing Lab: [address] [address] [facility] CBC LEUKOCYTES [#/VOLUME] IN BLOOD BY AUTOMATED COUNT 7.7 10*3/u L 3.6 - 11.2 12/24 Specimen Type: BLOOD No comment entered. Ordering Provider: SOBEIDA PERSON Report Released Date/Time: Dec 17, 2023 11:30 AM Reporting Lab: [address] [address] Performing Lab: [address] [phone] [facility] CBC ERYTHROCYTE S [#/VOLUME] IN BLOOD BY AUTOMATED COUNT 4.30 10*6/u L 4.10 - 5.70 12/24 Specimen Type: BLOOD No comment entered. Ordering Provider: SOBEIDA PERSON Report Released Date/Time: Dec 17, 2023 11:30 AM Reporting Lab: [facility] [address] [place] [phone] Performing Lab: [facility] [address] [place] [phone] [facility] CBC HEMOGLOBIN [MASS/VOLUM E] IN BLOOD 13.9 g/dL 13.1 - 16.8 12/24 Specimen Type: BLOOD No comment entered. Ordering Provider: SOBEIDA PERSON Report Released Date/Time: Dec 17, 2023 11:30 AM Reporting Lab: [address] [phone] Performing Lab: [facility] [address] [place] [phone] [facility] CBC HEMATOCRIT [VOLUME FRACTION] OF BLOOD 38.8 38.2 - 48.4 12/24 Specimen Type: BLOOD No comment entered. Ordering Provider: SOBEIDA PERSON Report Released Date/Time: Dec 17, 2023 11:30 AM Reporting Lab: [address] [phone] Performing Lab: [address] [phone] [facility] CBC MCV [ENTITIC VOLUME] BY AUTOMATED COUNT 90.2 fL 80.0 - 100.0 12/24 Specimen Type: BLOOD No comment entered. Ordering Provider: SOBEIDA PERSON Report Released Date/Time: Dec 17, 2023 11:30 AM Reporting Lab: [address] [phone] Performing Lab: [address] [address] [facility] CBC MCH [ENTITIC MASS] BY AUTOMATED COUNT 32.3 pg 27.0 - 34.0 12/24 Specimen Type: BLOOD No comment entered. Ordering Provider: SOBEIDA PERSON Report Released Date/Time: Dec 17, 2023 11:30 AM Reporting Lab: [address] [address] Performing Lab: [address] [phone] [facility] CBC MCHC [MASS/VOLUM E] BY AUTOMATED COUNT 35.8 g/dL 33.0 - 36.0 12/24 Specimen Type: BLOOD No comment entered. Ordering Provider: SOBEIDA PERSON Report Released Date/Time: Dec 17, 2023 11:30 AM Reporting Lab: [address] [phone] Performing Lab: [address] [phone] [facility] CBC PLATELETS [#/VOLUME] IN BLOOD BY AUTOMATED COUNT 220 10*3/u L 150 - 400 12/24 Specimen Type: BLOOD No comment entered. Ordering Provider: SOBEIDA PERSON Report Released Date/Time: Dec 17, 2023 11:30 AM Reporting Lab: [address] [phone] Performing Lab: [address] [phone] [facility] CBC PLATELET MEAN VOLUME [ENTITIC VOLUME] IN BLOOD BY AUTOMATED COUNT 10.4 fL 7.5 - 11.2 12/24 Specimen Type: BLOOD No comment entered. Ordering Provider: SOBEIDA PERSON Report Released Date/Time: Dec 17, 2023 11:30 AM Reporting Lab: [address] [phone] Performing Lab: [address] [address] [facility] CBC ERYTHROCYTE DISTRIBUTIO N WIDTH [RATIO] BY AUTOMATED COUNT 13.4 11.8 - 15.1 12/24 Specimen Type: BLOOD No comment entered. Ordering Provider: SOBEIDA PERSON Report Released Date/Time: Dec 17, 2023 11:30 AM Reporting Lab: [address] [address] Performing Lab: [address] [address] [facility] CBC LYMPHOCYTES /100 LEUKOCYTES IN BLOOD BY AUTOMATED COUNT 9 12/24 Specimen Type: BLOOD No comment entered. Ordering Provider: SOBEIDA PERSON Report Released Date/Time: Dec 17, 2023 11:30 AM Reporting Lab: [address] [address] Performing Lab: [address] [address] [facility] CBC MONOCYTES/1 00 LEUKOCYTES IN BLOOD BY AUTOMATED COUNT 5 12/24 Specimen Type: BLOOD No comment entered. Ordering Provider: SOBEIDA PERSON Report Released Date/Time: Dec 17, 2023 11:30 AM Reporting Lab: [facility] [address] [facility] [address] Performing Lab: [facility] [address] [place] [phone] [facility] CBC NEUTROPHILS /100 LEUKOCYTES IN BLOOD BY AUTOMATED COUNT 84 12/24 Specimen Type: BLOOD No comment entered. Ordering Provider: SOBEIDA PERSON Report Released Date/Time: Dec 17, 2023 11:30 AM Reporting Lab: [facility] [address] [place] [phone] Performing Lab: [address] [phone] [place] [address] CBC EOSINOPHILS /100 LEUKOCYTES IN BLOOD BY AUTOMATED COUNT 1 12/24 Specimen Type: BLOOD No comment entered. Ordering Provider: SOBEIDA PERSON Report Released Date/Time: Dec 17, 2023 11:30 AM Reporting Lab: [facility] [address] [place] [phone] Performing Lab: [address] [phone] [place] [address] CBC BASOPHILS/1 00 LEUKOCYTES IN BLOOD BY AUTOMATED COUNT 1 12/24 Specimen Type: BLOOD No comment entered. Ordering Provider: SOBEIDA PERSON Report Released Date/Time: Dec 17, 2023 11:30 AM Reporting Lab: [facility] [address] [place] [phone] Performing Lab: [facility] [address] [place] [phone] [facility] CBC LYMPHOCYTES [#/VOLUME] IN BLOOD BY AUTOMATED COUNT 0.66 10*3/u L 0.77 - 4.50 12/24 L Specimen Type: BLOOD No comment entered. Ordering Provider: SOBEIDA PERSON Report Released Date/Time: Dec 17, 2023 11:30 AM Reporting Lab: [facility] [address] [address] Performing Lab: [address] [address] [facility] CBC MONOCYTES [#/VOLUME] IN BLOOD BY AUTOMATED COUNT 0.41 10*3/u L 0.19 - 0.80 12/24 Specimen Type: BLOOD No comment entered. Ordering Provider: SOBEIDA PERSON Report Released Date/Time: Dec 17, 2023 11:30 AM Reporting Lab: [address] [phone] Performing Lab: [address] [phone] CBC NEUTROPHILS [#/VOLUME] IN BLOOD BY AUTOMATED COUNT 6.47 10*3/u L 2.10 - 8.00 12/24 Specimen Type: BLOOD No comment entered. Ordering Provider: SOBEIDA PERSON Report Released Date/Time: Dec 17, 2023 11:30 AM Reporting Lab: [address] [phone] Performing Lab: [address] [phone] [place] [address] CBC EOSINOPHILS [#/VOLUME] IN BLOOD BY AUTOMATED COUNT 0.05 10*3/u L 0.00 - 0.60 12/24 Specimen Type: BLOOD No comment entered. Ordering Provider: SOBEIDA PERSON Report Released Date/Time: Dec 17, 2023 11:30 AM Reporting Lab: [address] [address] Performing Lab: [address] [phone] [facility] CBC BASOPHILS [#/VOLUME] IN BLOOD BY AUTOMATED COUNT 0.05 10*3/u L 0.00 - 0.20 12/24 Specimen Type: BLOOD No comment entered. Ordering Provider: SOBEIDA PERSON Report Released Date/Time: Dec 17, 2023 11:30 AM Reporting Lab: [address] [place] [address] Performing Lab: [address] PROST. SPECIFIC AG.(PB-ST L) PROSTATE SPECIFIC AG [MASS/VOLUM E] IN SERUM OR PLASMA 1.639 ng/mL 0 - 4 12/24 Specimen Type: SERUM Comment: The listed sex of this patient may not be a typical indication for this test. Therefore, reference ranges or interpretiv e criteria listed may not be valid. Clinical correlation suggested. Ordering Provider: SOBEIDA PERSON Report Released Date/Time: Dec 17, 2023 11:30 AM Reporting Lab: [place] [phone] Performing Lab: [address] HGA1C HEMOGLOBIN A1C/HEMOGLO BIN.TOTAL IN BLOOD 5.0 4.0 - 6.0 12/24 Specimen Type: BLOOD No comment entered. Ordering Provider: SOBEIDA PERSON Report Released Date/Time: Dec 17, 2023 11:30 AM Reporting Lab: [place] [phone] Performing Lab: [phone] [place] [address] URINALYSI S (STL) COLOR OF URINE Light- Yellow 12/15 Specimen Type: URINE No comment entered. Ordering Provider: SOBEIDA PERSON Report Released Date/Time: Oct 12, 2022 09:38 AM Reporting Lab: [address] [phone] Performing Lab: [address] URINALYSI S (STL) BILIRUBIN.T OTAL [PRESENCE] IN URINE BY TEST STRIP Negati vemg/d L 12/15 Specimen Type: URINE No comment entered. Ordering Provider: SOBEIDA PERSON Report Released Date/Time: Oct 12, 2022 09:38 AM Reporting Lab: [facility] [address] [place] [phone] Performing Lab: [address] [phone] [place] [address] URINALYSI S (STL) PH OF URINE BY TEST STRIP 6.5 5.0 - 8.0 12/15 Specimen Type: URINE No comment entered. Ordering Provider: SOBEIDA PERSON Report Released Date/Time: Oct 12, 2022 09:38 AM Reporting Lab: [place] [phone] Performing Lab: [address] URINALYSI S (STL) APPEARANCE OF URINE Clear 12/15 Specimen Type: URINE No comment entered. Ordering Provider: SOBEIDA PERSON Report Released Date/Time: Oct 12, 2022 09:38 AM Reporting Lab: [facility] [address] [place] [phone] Performing Lab: [place] [phone] URINALYSI S (STL) NITRITE [PRESENCE] IN URINE BY TEST STRIP Negati vemg/d L 12/15 Specimen Type: URINE No comment entered. Ordering Provider: SOBEIDA PERSON Report Released Date/Time: Oct 12, 2022 09:38 AM Reporting Lab: [address] [phone] Performing Lab: [place] [phone] URINALYSI S (STL) GLUCOSE [MASS/VOLUM E] IN URINE BY TEST STRIP Normal mg/dL 12/15 Specimen Type: URINE No comment entered. Ordering Provider: SOBEIDA PERSON Report Released Date/Time: Oct 12, 2022 09:38 AM Reporting Lab: [facility] [address] [place] [phone] Performing Lab: [facility] [address] [place] [phone] [facility] URINALYSI S (STL) PROTEIN [MASS/VOLUM E] IN URINE BY TEST STRIP Negati vemg/d L - 20 12/15 Specimen Type: URINE No comment entered. Ordering Provider: SOBEIDA PERSON Report Released Date/Time: Oct 12, 2022 09:38 AM Reporting Lab: [facility] [address] [place] [phone] Performing Lab: [address] URINALYSI S (STL) URN.UROBILI NOGEN Normal mg/dL 12/15 Specimen Type: URINE No comment entered. Ordering Provider: SOBEIDA PERSON Report Released Date/Time: Oct 12, 2022 09:38 AM Reporting Lab: [facility] [address] [place] [phone] Performing Lab: [address] [phone] URINALYSI S (STL) HEMOGLOBIN [MASS/VOLUM E] IN URINE BY TEST STRIP Negati vemg/d L 12/15 Specimen Type: URINE No comment entered. Ordering Provider: SOBEIDA PERSON Report Released Date/Time: Oct 12, 2022 09:38 AM Reporting Lab: [facility] [address] [place] [phone] Performing Lab: [facility] [address] [place] [address] [phone] URINALYSI S (STL) KETONES [MASS/VOLUM E] IN URINE BY TEST STRIP Negati vemg/d L 12/15 Specimen Type: URINE No comment entered. Ordering Provider: SOBEIDA PERSON Report Released Date/Time: Oct 12, 2022 09:38 AM Reporting Lab: [address] [phone] Performing Lab: [address] [phone] [facility] URINALYSI S (STL) URN.LEUK.ES T. Negati vemg/d L 12/15 Specimen Type: URINE No comment entered. Ordering Provider: SOBEIDA PERSON Report Released Date/Time: Oct 12, 2022 09:38 AM Reporting Lab: [address] [phone] Performing Lab: [phone] URINALYSI S (STL) SPECIFIC GRAVITY OF URINE 1.015 1.005 - 1.029 12/15 Specimen Type: URINE No comment entered. Ordering Provider: SOBEIDA PERSON Report Released Date/Time: Oct 12, 2022 09:38 AM Reporting Lab: [address] [phone] Performing Lab: [phone] [place] [address] PROST. SPECIFIC AG.(PB-ST L) PROSTATE SPECIFIC AG [MASS/VOLUM E] IN SERUM OR PLASMA 2.395 ng/mL 0 - 4 12/15 Specimen Type: SERUM Comment: The listed sex of this patient may not be a typical indication for this test. Therefore, reference ranges or interpretiv e criteria listed may not be valid. Clinical correlation suggested. Ordering Provider: SOBEIDA PERSON Report Released Date/Time: Oct 12, 2022 09:38 AM Reporting Lab: [address] [phone] Performing Lab: [address] [phone] [place] [address] HGA1C HEMOGLOBIN A1C/HEMOGLO BIN.TOTAL IN BLOOD 4.8 4.0 - 6.0 10/10 Specimen Type: BLOOD Comment: No hemolysis noted. Ordering Provider: SOBEIDA PERSON Report Released Date/Time: Oct 04, 2022 02:00 PM Reporting Lab: [facility] [address] [place] [phone] Performing Lab: [facility] [address] [place] [phone] [facility] LIPID PANEL (STL) CHOLESTEROL [MASS/VOLUM E] IN SERUM OR PLASMA 215 mg/dL 0 - 200 10/10 H Specimen Type: PLASMA Comment: No hemolysis noted. Ordering Provider: SOBEIDA PERSON Report Released Date/Time: Oct 04, 2022 02:00 PM Reporting Lab: [address] [phone] Performing Lab: [address] [phone] [place] [address] LIPID PANEL (L) TRIGLYCERID E [MASS/VOLUM E] IN SERUM OR PLASMA 85 mg/dL 0 - 150 10/10 Specimen Type: PLASMA Comment: No hemolysis noted. Ordering Provider: SOBEIDA PERSON Report Released Date/Time: Oct 04, 2022 02:00 PM Reporting Lab: [address] [phone] Performing Lab: [address] [phone] [facility] LIPID PANEL (L) CHOLESTEROL IN LDL [MASS/VOLUM E] IN SERUM OR PLASMA BY CALCULATION 148 mg/dL 10/10 Specimen Type: PLASMA Comment: No hemolysis noted. Ordering Provider: SOBEIDA PERSON Report Released Date/Time: Oct 04, 2022 02:00 PM Reporting Lab: [facility] [address] [place] [phone] Performing Lab: [address] [phone] [facility] LIPID PANEL (STL) CHOLESTEROL IN HDL [MASS/VOLUM E] IN SERUM OR PLASMA 50 mg/dL 10/10 Specimen Type: PLASMA Comment: No hemolysis noted. Ordering Provider: SOBEIDA PERSON Report Released Date/Time: Oct 04, 2022 02:00 PM Reporting Lab: [facility] [address] [facility] [address] Performing Lab: [facility] [address] [facility] [address] [facility] Vital Signs Combined list of inpatient and outpatient Vital Signs from Department of [facility] and [facility], ranging from 12 months to all on record, depending upon the facility. Vital Sign Value Date Comments Source SYSTOLIC BLOOD PRESSURE 166 12/25/2023 13:20:55 [facility] DIASTOLIC BLOOD PRESSURE 93 12/25/2023 13:20:55 [facility] PULSE OXIMETRY 95 12/25/2023 13:20:55 [facility] WEIGHT 161.2 12/25/2023 13:20:55 [facility] BMI 25kg/m2 12/25/2023 13:20:55 [facility] PAIN 0 12/25/2023 13:20:55 [facility] HEIGHT 67 12/25/2023 13:20:55 [facility] TEMPERATURE 98 12/25/2023 13:20:55 [facility] PULSE 63 12/25/2023 13:20:55 [facility] RESPIRATION 16 12/25/2023 13:20:55 [facility] Encounters Combined list of: 1) Encounters from Department of [facility] facilities going back up to thelast 18 months. 2) Encounters from the Department of [facility] facilities going back up to 280 months. Location Location Details Encounter Type Encounter Number Reason For Visit Attending Provider ADM Date DC Date Status Disposition Source [facility] Outpatient Encounter [id number] 10/25 [facility] OFFICE O/P NEW MOD 45-59 MIN [id number] Diagnos is: ICD-10- CM F32.A Depress ion, unspeci fied
SINA DOWNS JR 10/26 [facility] [id number] JENNIFER HOLM 10/27 [facility] Outpatient Encounter [id number] 11/02 [facility] OFFICE O/P EST MOD 30-39 MIN [id number] Diagnos is: ICD-10- CM F33.2 Major depress v disorde r, recurre nt severe w/o psych feature s
SINA DOWNS JR 11/09 [facility] HC PRO PHONE CALL 11-20 MIN [id number] Diagnos is: ICD-10- CM F33.2 Major depress v disorde r, recurre nt severe w/o psych feature s
IVANIA HENSLEY 11/13 [facility] En[facility] [id number] JOSSELINE FRAUSTO 11/20 [facility] Outpatient Encounter [id number] 11/21 [facility] Outpatient Encounter [id number] IVANIA HENSLEY 11/21 [facility] OFFICE O/P EST MOD 30-39 MIN [id number] Diagnos is: ICD-10- CM F32.A Depress ion, unspeci fied
SINA DOWNS JR 11/[address] [facility] HC PRO PHONE CALL 5-10 MIN [id number] Diagnos is: ICD-10- CM Z59.811 Housing instabi lity, housed, with risk of homeles sness<b r/> KEREN MEEKS 11/30 [address] [place] [facility] PROGRAM INTAKE ASSESSMENT [id number] Diagnos is: ICD-10- CM Z59.811 Housing instabi lity, housed, with risk of homeles sness<b r/> NAJMA,REJI CENT 12/01 [place] [facility] PROGRAM INTAKE ASSESSMENT [id number] Diagnos is: ICD-10- CM Z59.811 Housing aleidaabi lity, housed, with risk of homeles sness<b r/> NAJMA,REJI CENT 12/01 [place] [facility] HC PRO PHONE CALL 21-30 MIN [id number] Diagnos is: ICD-10- CM F32.A Depress ion, unspeci fied
JOZEF NORWOOD THRYN 12/06 [facility] Outpatient Encounter [id number] NAYA,SOBEIDA D 12/12 [facility] Outpatient Encounter [id number] NAYA,SOBEIDA D 12/13 [facility] Outpatient Encounter [id number] Diagnos is: ICD-10- CM F32.A Depress ion, unspeci fied
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
ZAIN ALSTON 12/14 [facility] Outpatient Encounter [id number] ZAIN ALSTON 12/18 [facility] HC PRO PHONE CALL 5-10 MIN [id number] Diagnos is: ICD-10- CM F32.A Depress ion, unspeci fied
IVANIA HENSLEY 12/19 [facility] Outpatient Encounter [id number] 12/19 [facility] Encounter [id number] 12/21 [facility] HC PRO PHONE CALL 11-20 MIN [id number] Diagnos is: ICD-10- CM F32.A Depress ion, unspeci fied
JOZEF NORWOOD THRCHANDA 12/27 [facility] PSYTX W PT 30 MINUTES [id number] Diagnos is: ICD-10- CM F32.A Depress ion, unspeci fied
JENNIFER HOLM 12/29 [facility] [id number] Diagnos is: ICD-10- CM Z71.89 Other specifi ed general counselor ing<br/ > ALIREZA MORRIS M 12/29 [facility] N [facility] HC PRO PHONE CALL 5-10 MIN [id number] Diagnos is: ICD-10- CM Z59.00 Homeles sness unspeci fied
KEREN MEEKS 01/[address] [facility] Outpatient Encounter [id number] 01/18 [facility] Outpatient Encounter [id number] SOBEIDA PERSON 01/31 [facility] OFFICE O/P EST MOD 30-39 MIN [id number] Diagnos is: ICD-10- CM F32.A Depress ion, unspeci fied
SINA DOWNS JR 02/05 [facility] IMMUNIZATI ON ADMIN [id number] Diagnos is: ICD-10- CM Z23 Encount er for immuniz ation<b r/> LIZZY DUVALL 02/05 [facility] Outpatient Encounter [id number] 10/10 [facility] Outpatient Encounter [id number] SOBEIDA PERSON 10/13 [facility] Outpatient Encounter [id number] 10/19 [facility] Outpatient Encounter [id number] 10/25 [facility] Outpatient Encounter [id number] SOBEIDA PERSON 10/29 [facility] Outpatient Encounter [id number] 11/05 [facility] Outpatient Encounter [id number] 11/05 [facility] Outpatient Encounter [id number] SOBEIDA PERSON 12/16 [facility] Outpatient Encounter [id number] 12/24 [facility] Outpatient Encounter [id number] 12/24 [facility] OFFICE O/P EST MOD 30 MIN [id number] Diagnos is: ICD-10- CM F32.A Depress ion, unspeci fied
SOBEIDA PERSON 12/24 [facility] PSYTX CRISIS INITIAL 60 MIN [id number] Diagnos is: ICD-10- CM R45.851 Suicida l ideatio ns
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
Chichi BELLO F 01/20 [facility] Outpatient Encounter [id number] 02/11 [facility] OFFICE O/P EST HI 40 MIN [id number] Diagnos is: ICD-10- CM F32.A Depress ion, unspeci fied
JERALD RAYGOZA 02/12 [facility] Outpatient Encounter [id number] 04/22 [facility] Social History Combined list of available smoking, tobacco, and other social history from Department of Defense and [facility] facilities. Social History Type Response Date Comment Sourc e Tobacco smoking status NHIS VA-TOBACCO NEVER USED 12/25/2023 [facility] History of tobacco use VA-TOBACCO NEVER USED 09/26/2022 [facility] Plan of Care List of future care activities from Department of [facility] facilities. Additional future care activities may be listed in the Assessment and Plan section. Date/Time Care Activity Care Activity Detail Facili ty 06/23/2024 AMBULATORY - PSYCHIATRY AMBULATORY - PSYC HIATRY [facility]
--- OUTSIDE RECORDS SUMMARY | 2024-04-24 13:07 | XMS_ITS | Encounter Summary ---
Author Name [facility] [place] [facility] [place] Address [address], [place] [address] Care Team Providers Care Culinary Worker Name Role Phone SOBEIDA PERSON Primary Care Provider Unavailabl e Insurance Providers: All historical and current Section Date Range: From patient's date of to the date document was created. This section includes the names of all active insurance providers for the patient. Insurance Provider Type of Coverage Plan Name Start of Policy Coverage End of Policy Coverage Group Number Member ID Insurance Provider's Telephone Number Policy Bowser's Name Patient's Relationship to Policy Bowser [facility] [place] EX[place] NGE May 03, 2023 ILONEX [id number] [phone] LILLI TALLEY PATIENT [employer] RX PRESCRIPT ION RX PLAN May 03, 2023 EXCIL [id number] LILLI TALLEY PATIENT [facility] CE ORGANIZAT ION [facility] SILVE R ADVAN TAGE May 03, 2023 ILONEX [id number] LILLI TALLEY PATIENT Selected Encounter This section includes the information on record at [place] for the Encounter. Date/Time Encounter Type Encounter Description Reason Provider Source Dec 25, 2023 02:00 PM OFFICE O/P EST MOD 30 MIN PRIMARY CARE/MEDICINE ICD-10-CM F32.A Depression, unspecified SOBEIDA PERSON IHE Encounter Template Text not used by [place] Assessments - Encounter Diagnoses This section includes the primary and secondary diagnoses documented for the Encounter. Date/Time Primary/Secondary Diagnosis Diagnosis Name Provider Source Dec 25, 2023 02:27 PM PRIMARY Depression, unspecified NAYAESSENCEA D [facility] Dec 25, 2023 02:27 PM SECONDARY Elevated blood-pressure reading, w/o diagnosis of htn SOBEIDA PESRON [facility] Dec 25, 2023 02:27 PM SECONDARY Encounter for immunization ELAN FOSTER [facility] Dec 25, 2023 02:27 PM SECONDARY Hyperlipidemia, unspecified NAYA,SOBEIDA Hewitt [facility] Plan of Treatment: Future Appointments (+ 6 months) and Future Tests (+/- 45 days) The Plan of Treatment section includes future care activities for the [facility] This section includes future appointments and future orders which are active, pending or scheduled. Future Appointments This section includes appointments that were scheduled to occur 6 months from the date of the Encounter, up to a maximum of 20 appointments. The data comes from all [facility]. Appointment Date/Time Appointment Type Appointme nt Facility Name Jan 04, 2024 10:00 AM AMBULATORY - MEDICINE [facility] Jan 21, 2024 10:00 AM AMBULATORY - MEDICINE [facility] Feb 13, 2024 10:00 AM AMBULATORY - PSYCHIATRY [facility] Jun 23, 2024 02:30 PM AMBULATORY - PSYCHIATRY [facility] Active, Pending, and Scheduled Orders This section includes a listing of several types of active, pending, and scheduled orders, including clinic medications orders, diagnostic test orders, procedure orders and consult orders; where the start date of the order is 45 days before the date of the Encounter or 45 days after the date of theEncounter. The data comes from all [facility]. Test Date/Time Test Type Test Details Facility Name Dec 25, 2023 12:00 AM Laboratory - Chemi jad Order OCCULT BLOOD FIT X1 SCREEN STOOL FECES SP [facility] Lab Results: +/- 30 days of the encounter This section includes the Chemistry and Hematology Lab Results on record with [place] for the patient. Radiology Reports and Pathology Reports are provided separately, in subsequent sections. Lab Results This section contains the Chemistry/Hematology Results that were resulted 30 days before or 30 daysafter the date of the Encounter. Date/Time Source Result Type Result - Unit Interpretation Reference Range Comment Dec 25, 2023 03:58 PM [facility] URINALYSIS W/ CX REFLEX (STL-PB) Specimen Type: URINE No comment entered. Ordering Provider: SOBEIDA PERSON Report Released Date/Time: Dec 25, 2023 01:57 PM Reporting Lab: [facility] [address] [place] [phone] Performing Lab: [address] [phone] URINE COLOR Light-Yellow Yellow U.BILIRUBIN Negative mg/dL Negative U.PH 5.5 5.0-8.0 URINE WBC/HPF 1 /[HPF] 0-5 APPEARANCE Clear Clear U.NITRITE Negative mg/dL Negative MUCUS RARE /[LPF] Negative -R are URN.GLUCOSE Normal mg/dL Negative URN.PROTEIN 20 mg/dL H Negative -2 0 URN.UROBILINOGE N Normal mg/dL Normal URN.BLOOD Negative mg/dL Negat gauri-T race URN.KETONES Negative mg/dL Neg ative-T race URN.LEUK.EST. Negative mg/dL N egative-T race URN.SPECIFIC GRAVITY 1.017 1.005-1.02 9 Dec 25, 2023 03:51 PM [facility] COMPREHENSIVE METABOLIC PANEL Specimen Type: PLASMA Comment: No hemolysis noted. Ordering Provider: SOBEIDA PERSON Report Released Date/Time: Dec 17, 2023 11:30 AM Reporting Lab: [facility] [address] [place] [phone] Performing Lab: [facility] [address] [place] [phone] CREATININE 1.13 mg/dL 0.7-1.3 UREA NITROGEN 13.2 mg/dL 9.0-25.0 GLUCOSE 100 mg/dL H 72-99 SODIUM 141 meq/L 136-145 POTASSIUM 3.7 meq/L 3.5-5 CHLORIDE 109 meq/L H 98-107 CARBON DIOXIDE 20 meq/L L 22-31 CALCIUM 9.0 mg/dL 8.4-10.4 PROTEIN 7.1 g/dL 6-8.6 ALBUMIN 4.4 g/dL 3.4-5 TOTAL BILIRUBIN 0.6 mg/dL 0.2-1.2 ALKALINE PHOSPHATASE 70 U/L 40-150 AST/SGOT 13 U/L 5-34 ALT/SGPT 13 U/L 8-40 EGFR (CKD-EPI 2020) 75.8 >60 Dec 25, 2023 03:51 PM [facility] LIPID PANEL (STL) Specimen Type: PLASMA Comment: No hemolysis noted. Ordering Provider: SOBEIDA PERSON Report Released Date/Time: Dec 17, 2023 11:30 AM Reporting Lab: [facility] [address] [place] [phone] Performing Lab: [facility] [address] [place] [phone] CHOLESTEROL 219 mg/dL H 0-200 TRIGLYCERIDE 118 mg/dL 0-150 CALCULATED LDL 144 mg/dL HDL(New) 51 mg/dL >40 Dec 25, 2023 03:51 PM [facility] CBC Specimen Type: BLOOD No comment entered. Ordering Provider: SOBEIDA PERSON Report Released Date/Time: Dec 17, 2023 11:30 AM Reporting Lab: [facility] [address] [place] [phone] Performing Lab: [facility] [address] [place] [phone] WBC 7.7 10*3/uL 3.6-11.2 RBC 4.30 10*6/uL 4.10-5.70 HGB 13.9 g/dL 13.1-16.8 HCT 38.8 38.2-48.4 MCV 90.2 fL 80.0-100.0 MCH 32.3 pg 27.0-34.0 MCHC 35.8 g/dL 33.0-36.0 PLT 220 10*3/uL 150-400 MPV 10.4 fL 7.5-11.2 RDW 13.4 11.8-15.1 LYMPHOCYTES, AUTO % 9 MONOCYTES, AUTO % 5 NEUTROPHILS, AUTO % 84 EOSINOPHILS, AUTO % 1 BASOPHILS, AUTO % 1 LYMPHOCYTES, ABSOLUTE 0.66 10*3/uL L 0.77-4.50 MONOCYTES, ABSOLUTE 0.41 10*3/uL 0.19-0.80 NEUTROPHILS, ABSOLUTE 6.47 10*3/uL 2.10-8.00 EOSINOPHILS, ABSOLUTE 0.05 10*3/uL 0.00-0.60 BASOPHILS, ABSOLUTE 0.05 10*3/uL 0.00-0.20 Dec 25, 2023 03:51 PM [facility] PROST. SPECIFIC AG.(PB-STL) Specimen Type: SERUM Comment: The listed sex of this patient may not be a typical indication for this test. Therefore, reference ranges or interpretive criteria listed may not be valid. Clinical correlation suggested. Ordering Provider: SOBEIDA PERSON Report Released Date/Time: Dec 17, 2023 11:30 AM Reporting Lab: [facility] [address] [place] [phone] Performing Lab: [address] [phone] PROST. SPECIFIC AG.(PB-STL) 1.639 ng/mL 0-4 Dec 25, 2023 03:51 PM [facility] HGA1C Specimen Type: BLOOD No comment entered. Ordering Provider: SOBEIDA PERSON Report Released Date/Time: Dec 17, 2023 11:30 AM Reporting Lab: [facility] [address] [place] [phone] Performing Lab: [facility] [address] [place] [phone] HGA1C 5.0 4.0-6.0 Vital Signs: All taken on the encounter date This section contains inpatient and outpatient Vital Signs collected on the date of the Encounter. Date/Time Temperature Pulse Blood Pressure Respiratory Rate SP02 Pain Height Weight Body Mass Index Source Dec 25, 2023 01:38 PM 76 158/103 [facility] Dec 25, 2023 01:20 PM 98 63 166/93 16 95 0 67 161.2 25 [facility] Immunizations: All administered on the encounter date This section contains immunizations associated to the Encounter. Immunization Series Date Issued Reaction Comments INFLUENZA, SPLIT VIRUS, TRIVALENT, PF Dec 24, 024 COVID-19 (PFIZER), MRNA, LNP -S, PF, NORTH-SUCROSE, 30 MCG/0.3 ML (AGES 12+ YEARS) Dec 25, 2023 Social History: Smoking Status (Most current) and Tobacco Use (All prior to encounter date) This section includes the most current, and the historical, smoking and tobacco- related health factors from the [place] facility where the Encounter took place. Current Smoking Status This section includes the most current smoking, or tobacco-related health factor, from the [place] facility where the Encounter took place. Date/Time Current Smoking Status Comment [place] Dec 25, 2023 02:00 PM VA-TOBACCO NEVER USED [facility] Encounter Notes: All associated encounter notes This section contains the clinical notes associated to the Encounter. Date/Time Encounter Note(s) Provider Source Dec 26, 2023 08:28 AM PHYSICIAN LETTERS: LOCAL TITLE: TEST RESULT GENERAL LETTER STL STANDARD TITLE: PHYSICIAN LETTERS DATE OF NOTE: DEC 26, 2023@08:28 ENTRY DATE: DEC 26, 2023@08:28:32 AUTHOR: SOBEIDA PERSON EXP COSIGNER: URGENCY: STATUS: COMPLETED [facility] [address] [place] [address] DEC 26, 2023 LILLI DEAN [address], [place] [address] Dear Lilli Dean, I would like to update you on your recent test results. LIPID PROFILE - High cholesterol and triglycerides (lipids) are risk factors for heart disease. Your cholesterol should fall between 140 and 200, and your triglycerides levels should be less than or equal to 150. HDL is the good cholesterol and should ideally be greater than 40. LDL is the bad cholesterol and optimal levels should be less than 100 (near optimal is between 100 and 129). TRIGLYCERIDE 118 mg/dL 12/25/2023 15:51 CHOLESTEROL 219 H mg/dL 12/25/2023 15:51 HDL(New) 51 mg/dL 12/25/2023 15:51 CALCULATED LDL 144 mg/dL 12/25/2023 15:51 These results are abnormal. -LDL is slightly high. Recommend low-fat diet and exercise Increase vegetable intake HEMOGLOBIN A1C - Gives us information about your diabetes (sugar or glucose) control over the past 3 months. HGA1C 5.0 % 12/25/2023 15:51 These readings are within normal limits. CBC - A complete blood count (CBC) gives important information about the kinds and numbers of cells in the blood, especially red blood cells, white blood cells, and platelets. HGB 13.9 g/dL 12/25/2023 15:51 HEMATOCRIT 38.8 % (12/25/23 15:51) PLT 220 10*3/uL 12/25/2023 15:51 WHITE BLOOD COUNT 7.7 10*3/uL (12/25/23 15:51) These readings are within normal limits. CHEM 7 - This is important information about the current status of your kidneys, liver, and electrolyte and acid/base balance as well as of your blood sugar and blood proteins. SODIUM 141 mEq/L 12/25/2023 15:51 POTASSIUM 3.7 mEq/L 12/25/2023 15:51 CHLORIDE 109 H mEq/L 12/25/2023 15:51 UREA NITROGEN 13.2 mg/dL 12/25/2023 15:51 CREATININE 1.13 mg/dL 12/25/2023 15:51 CALCIUM 9.0 mg/dL 12/25/2023 15:51 CARBON DIOXIDE 20 L mEq/L 12/25/2023 15:51 GLUCOSE 100 H mg/dL 12/25/2023 15:51 EGFR (CKD-EPI 2020) 75.8 12/25/2023 15:51 The results are not a clinical concern at present. LIVER FUNCTION PANEL - These are tests for liver function: PROTEIN 7.1 g/dL 12/25/2023 15:51 ALBUMIN 4.4 g/dL 12/25/2023 15:51 TOTAL BILIRUBIN 0.6 mg/dL 12/25/2023 15:51 ALKALINE PHOSPHATASE 70 U/L 12/25/2023 15:51 AST/SGOT 13 U/L 12/25/2023 15:51 ALT/SGPT 13 U/L 12/25/2023 15:51 These readings are within normal limits. PSA - Prostate-specific antigen is a protein produced by cells of the prostate gland. The PSA test measures the level of PSA in the blood. PSA PROST. SPECIFIC AG.(PB-STL) 1.639 ng/mL 12/25/2023 15:51 These readings are within normal limits. URINALYSIS - A urinalysis (or UA ) is an array of tests performed on urine and one of the most common methods of medical diagnosis. URINALYSIS URINE COLOR Light-Yellow 12/25/2023 15:58 APPEARANCE Clear 12/25/2023 15:58 U.PH 5.5 12/25/2023 15:58 U.BILIRUBIN Negative mg/dL 12/25/2023 15:58 U.NITRITE Negative mg/dL 12/25/2023 15:58 URINE WBC/HPF 1 /HPF 12/25/2023 15:58 MUCUS RARE /LPF 12/25/2023 15:58 These readings are within normal limits. PLAN Please continue your treatment as we discussed during your visit. If you have any questions please call your disease case manager rn. I look forward to seeing you at your next clinic appointment. Thank you for choosing the [facility] for your healthcare. FUTURE APPOINTMENTS: 01/04/2024 10:00 [facility] PACT PHONE KATHY B0 12/23/2024 14:30 [facility] PACT B PCP Sincerely, SOBEIDA PERSON MD Staff Physician LILLI DEAN RAMA D [facility] Dec 25, 2023 01:57 PM PRIMARY CARE NOTE: LOCAL TITLE: PRIMARY CARE PROVIDER ESTABLISHED VISIT [facility] STANDARD TITLE: PRIMARY CARE NOTE DATE OF NOTE: DEC 25, 2023@13:57 ENTRY DATE: DEC 25, 2023@13:57:43 AUTHOR: SOBEIDA PERSON EXP COSIGNER: URGENCY: STATUS: COMPLETED PRIMARY CARE PROVIDER ESTABLISHED VISIT ST Has ADDENDA ESTABLISHED PATIENT QQCY-LQ-MSIM: REASON FOR VISIT/CHIEF COMPLAINT: -- f/u on chronic medical issues mood depressed has suicidal thoughts Noncompliant with antidepressants Denies chest pain/cough/shortness of breath normal appetite, No blood in stool Significant medical history :- - Depression/Anxiety - Hyperlipidemia - Low Vitamin D psh : None fh : Parents-diabetic sh : Currently living with his girlfriend Moved from [place] 2 years ago No smoking No alcohol 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 MEDICATION RECONCILIATION: I have reviewed the patient's medication list with the patient and/or his/her care-shipping checker. Handwritten corrections, additions and/or deletions were made to the list. Corrected Outpatient Medication List was provided to the patient/caregiver. Active Outpatient Medications (including Supplies): Active Outpatient Medications Status 1) FLUOXETINE HCL 10MG CAP TAKE ONE CAPSULE BY MOUTH ACTIVE EVERY MORNING Active Non-VA Medications Status 1) Non-VA CHOLECALCIF 25MCG (D3-1,000UNIT) TAB 25MCG BY ACTIVE MOUTH ONCE A DAY 2 Total Medications Weight : Patient Weight History - Last Four 1. 161.2 lbs. / 73.1 kg. on DEC 25, 2023@13:20:55 2. 164.0 lbs. / 74.4 kg. on OCT 10, 2022@13:34:31 3. 166.2 lbs. / 75.4 kg. on SEP 26, 2022@11:00:18 Vitals : ----- Temp : 98 F [36.7 C] (12/25/2023 13:20) BP : 158/103 (12/25/2023 13:38) WV : 76 (12/25/2023 13:38): RR : 16 (12/25/2023 13:20) POX: 95% (12/25/2023 13:20) Objective findings: Alert , oriented X 3 Not in acute distress HEENT - moist mucous membranes NECK - supple , no adenopathy, no bruits Heart - s1s2, rrr, no murmurs Chest - CTA marcus with no distress Abdomen - soft, nontender, no organomegaly Extremities- no pedal edema , good pedal pulses, both feet warm Most recent labs : LDL : 148 HDL : 50 mg/dL (10/10/22 15:33) TRI : 85 mg/dL (10/10/22 15:33) CHOLESTEROL 215 H mg/dL 10/10/2022 15:33 HGA1C 4.8 % 10/10/2022 15:33 VITAMIN D, 25-HYDROXY 31.7 ng/mL 10/10/2022 15:33 HEP C Ab HCV Ab (STL) Nonreactive S/CO (10/10/22 15:32) TSH 1.434 uIU/mL 10/10/2022 15:33 PROST. SPECIFIC AG.(PB-STL) 2.395 ng/mL 12/15/2022 13:27 WBC : 8.0 10*3/uL (10/10/22 15:33) HGB 14.6 g/dL 10/10/2022 15:33 MCV :91.1 fL (10/10/22 15:33) PLT 265 10*3/uL 10/10/2022 15:33 SODIUM 138 mEq/L 10/10/2022 15:33 POTASSIUM 4.1 mEq/L 10/10/2022 15:33 CALCIUM : 8.8 mg/dL (10/10/22 15:33) CREATININE 1.07 mg/dL 10/10/2022 15:33 GLUCOSE 95 mg/dL 10/10/2022 15:33 SGOT : 13 U/L (10/10/22 15:33) SGPT : 14 U/L (10/10/22 15:33) ALKALINE PHOSPHATASE 69 U/L 10/10/2022 15:33 ASSESSMENT/PLAN: -Above labs reviewed with patient Patient gives verbal permission to leave messages on voice mail #Hyperlipidemia: LDL slightly high, advised to avoid deep fried foods and red meat. Increase vegetable intake and fruits Exercise 30 to 40 minutes a day, 4 to 5 days/week # Low vitamin D : Vitamin D at the lower limit of normal range. cont cholecalciferol 1000 units and take it daily # Depression : currently not on any meds, f/u with BH referred to psychology due to positive suicide screen # Elevated blood pressure without diagnosis of HTN : bp elevated today Low-salt diet, exercise 30 to 40 minutes a day 4 to 5 days Check blood pressure daily and keep log Request RN CM to follow-up with phone visitFollow-Up Pos PTSD/Depression: I have reviewed the results of the Mental Health screens and have evaluated the patient. Based on the evaluation, the following disposition plan will be implemented: Patient to be evaluated by Mental Health Stat/Emergent Mental Health Evaluation needed. Comment: referred to Psychology Avg Risk Colorectal Cancer Screen: AVERAGE RISK colorectal cancer screening is due based on information available to this clinical reminder FOBT/FIT (Fecal Immunochemical Testing) has been ordered. See order tab for details. SUMMARY STATEMENT: Plan of care has been discussed with including expected therapeutic benefits and potential side effects of prescribed medication and treatments. verbalizes understanding and is in agreement with the plan of care. Patient was instructed to keep all scheduled appointments and contact research home economist for any additional problems. Medication Reconciliation Opt STL: I have reviewed the patient's medication list (including active outpatient prescriptions dispensed from this [facility] (local) and dispensed from another [facility] or [facility] facility (remote) as well as inpatient orders (local pending and active), local clinic medications, locally documented non-VA medications, and local prescriptions that have or been discontinued in the past 90 days.) with the patient and/or his/her care-shipping checker. Handwritten corrections, additions and/or deletions were made to the list, as appropriate. Corrected Outpatient Medication List was provided to the patient/caregiver. RTC :1 year ----- /adore/ SOBEIDA PERSON MD Staff Physician Signed: 12/25/2023 14:27 01/22/2024 ADDENDUM STATUS: COMPLETED Blood pressure readings at home per 01/21/2024 nurses note DATE/TIME:01/14 B/P 126/82 PULSE 68 COMMENT DATE/TIME:01/16 B/P 132/78 PULSE72 COMMENT DATE/TIME:01/18 B/P 134/76 PULSE74 COMMENT DATE/TIME:01/19 B/P 126/78 PULSE76 COMMENT DATE/TIME:10/21 B/P 128/72 PULSE72 COMMENT /es/ SOBEIDA PERSON MD Staff Physician Signed: 01/22/2024 10:12 SOBEIDA PERSON [facility] Dec 25, 2023 01:25 PM NURSING NOTE: LOCAL TITLE: V15 PACT FACE TO FACE NOTE ST STANDARD TITLE: NURSING NOTE DATE OF NOTE: DEC 25, 2023@13:25 ENTRY DATE: DEC 25, 2023@13:25:08 AUTHOR: BRIDGER FOSTER COSIGNER: URGENCY: STATUS: COMPLETED Provider Visit: Patient Identifiers : Full Name Date of Reason for visit: Established Follow-Up Mode of Arrival: Ambulatory Allergy Review: Patient has answered NKA Allergy list reviewed and remains current. Recent Vital Signs: Temperature: 98 F [36.7 C] (12/25/2023 13:20) Pulse: 63 (12/25/2023 13:20) Respiration: 16 (12/25/2023 13:20) B/P: 166/93 (12/25/2023 13:20) Pain: 0 (12/25/2023 13:20) Wt: 161.2 lb [73.12 kg] (12/25/2023 13:20) Ht: 67 in [170.2 cm] (12/25/2023 13:20) BMI: 25.3 POX: 95% (12/25/2023 13:20) Blood sugar glucometer reading: na PERSONAL HEALTH INVENTORY Notes: No data available for PHI note titles PERSONAL HEALTH INVENTORY - MAP: No data available for PHI MAP What matters most to you in your life right now? --- 's Response: family ang girlfriend WHOLE HEALTH SHARED GOALS: PERSONAL HEALTH PLAN - SHARED GOALS: No data available for: Php Shared Goals SHARED GOALS == get rid of depression Would you like to discuss any personal problem, family problem, alcohol use, drug use, or a mental or emotional illness? No Contact provided Primary Care phone number and encouraged to call if any questions or concerns. Review that after hours nurse line [phone] and emergency room are available 23/10 for patient use. Contact verbalized good understanding. Depression Screening: Perform PHQ-2 A PHQ-2 screen was performed. The score was 6 which is a positive screen for depression. Over the past two weeks, how often have you been bothered by the following problems? 1. Little interest or pleasure in doing things Nearly every day 2. Feeling down, depressed, or hopeless Nearly every day Licensed Independent Provider notified of positive screen and need for follow-up. Name of provider notified: DR. PERSON AND MADE AWARE Suicide Screen: C-SSRS Screening Walsh-Suicide Severity Rating Scale (C-SSRS Screener) Suicide preparations or attempt made within past 3 months; this POSITIVE answer requires same-day completion of a Suicide Risk Evaluation-Comprehensive 1. Over the past month, have you wished you were or wished you could go to sleep and not wake up? Yes 2. Over the past month, have you had any actual thoughts of killing yourself? Yes 3. Over the past month, have you been thinking about how you might do this? No 4. Over the past month, have you had these thoughts and had some intention of acting on them? No 5. Over the past month, have you started to work out or worked out the details of how to kill yourself? No 6. If yes, at any time in the past month did you intend to carry out this plan? Response not required due to responses to other questions. 7. In your lifetime, have you ever done anything, started to do anything, or prepared to do anything to end your life (for example, collected pills, obtained a gun, gave away valuables, went to the roof but didn't jump)? Yes 8. If YES, was this within the past 3 months? Yes Alcohol Use Screen (AUDIT-C): Alcohol Screen: SCREEN FOR ALCOHOL (AUDIT-C) An alcohol screening test (AUDIT-C) was negative (score=0). 1. How often did you have a drink containing alcohol in the past year? Consider a drink to be a 12 ounce can or bottle of regular beer, 8 ounces of malt liquor, a 5 ounce glass of table wine, or a 1.5 ounce shot of liquor (like scotch, gin, or vodka). Never 2. How many drinks containing alcohol did you have on a typical day when you were drinking in the past year? Response not required due to responses to other questions. 3. How often did you have six or more drinks on one occasion in the past year? Response not required due to responses to other questions. Homelessness/Food Insecurity Screen: In the past 2 months, have you been living in stable housing that you own, rent, or stay in as part of a household? Yes - Living in stable housing. Are you worried or concerned that in the next 2 months you may NOT have stable housing that you own, rent, or stay in as part of a household? No - Not worried about housing near future The reports the following: Within the past 12 months, you worried whether your food would run out before you got money to buy more. Never true Within the past 12 months, the food you bought just didn't last and you didn't have money to get more. Never true Tobacco Use Screening: The patient has never used tobacco. Herpes Zoster (Shingles) Vaccine: The patient declines to receive the recommended dose of zoster (shingles) vaccine. Immunization: ZOSTER RECOMBINANT Refusal Reason: PATIENT DECISION Patient refuses all immunization(s) in the ZOSTER group Date Documented: 12/25/23 13:38 COVID-19 Immunization: Refused Pfizer Monovalent COVID-19 vaccine Immunization: COVID-19 (PFIZER), MRNA, LNP-S, PF, NORTH-SUCROSE, 30 MCG/0.3 ML (AGES 12+ YEARS) Refusal Reason: PATIENT DECISION Patient refuses all immunization(s) in the COVID-19 group Date Documented: 12/25/23 13:39 Influenza Immunization: Deferral / Refusal The patient declines to receive the recommended dose of seasonal influenza vaccine. Immunization: INFLUENZA, UNSPECIFIED FORMULATION Refusal Reason: PATIENT DECISION Patient refuses all immunization(s) in the FLU group Date Documented: 12/25/23 13:39 COVID-19 Immunization: Pfizer Monovalent (Comirnaty) Administered: COVID-19 (PFIZER), MRNA, LNP-S, PF, NORTH-SUCROSE, 30 MCG/0.3 ML (AGES 12+ YEARS) Date Administered: Dec 25, 2023 13:42 City Superintendent Of [employer]: [employer] Lot: [id number] Exp Date: Jul 07, 2024 NDC: [id number] Admin Route/Site: INTRAMUSCULAR/RIGHT DELTOID Dosage: 0.3mL Vaccine Information Statement(s): COVID-19 MRNA VACCINE (12+ YRS) VACCINE VIS Jan 18, 2023 (TAJIK) Order By: Policy Administered By: Bridger Foster Override Reason: REQUEST Vaccine administered without complications. Influenza Immunization: Influenza, Trivalent, Preservative Free (Fluarix-Syringe) Administered: INFLUENZA, SPLIT VIRUS, TRIVALENT, PF Date Administered: Dec 25, 2023 13:43 City Superintendent Of Schools: [employer] Lot: [id number] Exp Date: Sep 29, 2024 NDC: [id number] Admin Route/Site: INTRAMUSCULAR/LEFT DELTOID Dosage: 0.5mL Vaccine Information Statement(s): INFLUENZA(FLU) VACC(INACTIVATED OR RECOMBINANT)VIS Nov 05, 2020 (TAJIK) Order By: Policy Administered By: Bridger Foster Override Reason: REQUEST The Influenza Vaccine Information Statement (VIS) was reviewed with the patient/caregiver which lists the benefits and risks of the vaccine and the risks of not receiving the Influenza vaccine. The patient/caregiver denied any prior severe reaction to this vaccine or its components or a severe allergic reaction, such as anaphylaxis, to any vaccine or any injectable therapy. The patient/caregiver gave verbal consent to receive the vaccine. /adore/ BRIDGER FOSTER LPN LICENSED PRACTIAL NURSE Signed: 12/25/2023 13:44 BRIDGER FOSTER [facility]
--- OUTSIDE RECORDS SUMMARY | 2024-04-24 13:07 | XMS_ITS | Encounter Summary ---
Author Name [facility] [place] [facility] [facility] [place] Address [address] [place] [address] Care Team Providers Care Nurse'S Assistant Name Role Phone SOBEIDA PERSON Primary Care Provider [facility] Insurance Providers: All historical and current [...] ONE EXCHA NGE May 03, 2023 ILONEX [id number] [phone] LILLI TALLEY PATIENT [employer] PRESCRIPT ION RX PLAN May 03, 2023 EXCIL [id number] [phone] LILLI TALLEY PATIENT [facility] CE ORGANIZAT ION [facility] SILVE R ADVAN TAGE May 03, 2023 ILONEX [id number] [phone] LILLI TALLEY PATIENT Selected Encounter This section includes the information on record at [place] for the Encounter. Date/Time Encounter Type Encounter Description Reason Provider Source Feb 13, 2024 10:00 AM OFFICE O/P EST HI 40 [facility] - IND ICD-10-CM F32.A Depression, unspecified IDALMISJERALDMonika MCKENNAELISSA IHE Encounter Template Text not used by [place] Assessments - Encounter Diagnoses This section includes the primary and secondary diagnoses documented for the Encounter. Date/Time Primary/Secondary Diagnosis Diagnosis Name Provider Source Feb 13, 2024 10:58 AM PRIMARY Depression, unspecified CAYLA RAYGOZAA [facility] Plan of Treatment: Future Appointments (+ 6 months) and Future Tests (+/- 45 days) The Plan of Treatment section includes future care activities for the patient from all [place] treatmentfacilities. This section includes future appointments and future orders which are active, pending or scheduled. Future Appointments This section includes appointments that were scheduled to occur 6 months from the date of the Encounter, up to a maximum of 20 appointments. The data comes from all [place] treatment facilities. Appointment Date/Time Appointment Type Appointme nt Facility Name Jun 23, 2024 02:30 PM AMBULATORY - PSYCHIATRY [facility] Encounter Notes: All associated encounter notes This section contains the clinical notes associated to the Encounter. Date/Time Encounter Note(s) Provider Source Feb 13, 2024 09:45 AM PSYCHIATRY NOTE: LOCAL TITLE: PSYCHIATRY ST STANDARD TITLE: PSYCHIATRY NOTE DATE OF NOTE: FEB 13, 2024@09:45 ENTRY DATE: FEB 06, 2024@07:38:38 AUTHOR: JERALD RAYGOZA EXP COSIGNER: URGENCY: STATUS: COMPLETED PSYCHIATRY [facility] Has [facility] - MEDICATION MANAGEMENT Name..................LILLI FIGUEREDO Age...................59 Sex...................MALE SSN................... Service Connection.... Service Connected: NO Rated Disabilities: NONE STATED SYNOPSIS: Lilli is a with PMH of MDD who initially presented on 10/26/2022 for treatment of depression. He followed with Dr. Ballard and eventually joined my clinic on 02/13/2024. He described himself as a worrier, but only pertraining to real-life stressors such as bills. Relevant Psych Hx: No SA/Psych hosp Substance use: Denied all Med trials: Prozac: Started at 10 mg, nausea Lexapro: Was on this medication around 2012 for 5 years with good results. As such, was restarted in 2022 but caused GI side effects and was discontinued Mirtazapine: 2022, resulted in dizziness and nausea Values/hobbies: moved to [facility] years ago for a significant other w/ whom he is living with, watching TV and listening to radio, talking to friends SUBJECTIVE: HPI: The patient presented on time, alone, and in NAD. Patient was last seen on 02/05/2023 at which time mirtazapine was discontinued given side effects and Prozac was restarted. The was then seen in triage on 12/25/2023 after a positive suicide screen. The patient reported passive SI with no intent, plans, or preparatory behavior. He reported he ran out of psychiatric medications and also had side effects. He requested reengaging with psychiatry and psychotherapy. He stated his main trigger was being alone, in the dark, and being hungry. In the interim, the patient stated that he has not taken prozac for several months given nausea which resulted in gradual worsening of symptoms. He reported he has not been doing good . He explained that his depression has gotten worse and that every day is a struggle...every day I see things in a negative way..it is horrible and at this point I feel that once I get back on medicine it will help me get back on track . He stated he has had suicidal thoughts with no plan or intent, although he was worried if he would do something spotaneously if given a chance. He again stated no intent and is help seeking: if you do yourself in, you are robbing yourself of a chance to getting this fixed...once you do that, that is it. There is no fixing that...any type of hestiation I am cool with, I want to live . He stated I have no gun, rope, or anything to harm myself . He reported overall low energy with increased sedation through the day ( it feels like I put in a 12 hour shift, and I have not done anything...all I want to do is sleep ). Appetite has decreased and weight has decreased as a result. He reported he is taking care of his ADLs, but that this has become harder to do ( I find it easy to put stuff of...my girlfriend will tell me I stink and to shower...I did not have problems with this in the past ). He denied feelings of hopelessness and worthlessness. He described some anhedonia as well, altough he does still engage in his pastimes. Triggers for his depression include his [place] to [place] 4 years ago and discord with his s/o. He did not report any new changes to substance use. OBJECTIVE: Problem List: 1) Depression 2) Headache 3) Elevated PSA 4) Hyperlipidemia Outpatient Medications: Active Outpatient Medications (including Supplies): Active Outpatient Medications Status 1) FLUOXETINE HCL 10MG CAP TAKE ONE CAPSULE BY MOUTH ACTIVE EVERY MORNING Active Non-VA Medications Status 1) Non-VA CHOLECALCIF 25MCG (D3-1,000UNIT) TAB 25MCG BY ACTIVE MOUTH ONCE A DAY 2 Total Medications Vital Signs: Height: 67 in [170.2 cm] (12/25/2023 13:20) Weight: 161.2 lb [73.12 kg] (12/25/2023 13:20) BMI: 25.3 Temperature: 98 F [36.7 C] (12/25/2023 13:20) Blood Pressure: 158/103 (12/25/2023 13:38) Pulse: 76 (12/25/2023 13:38) Respirations: 16 (12/25/2023 13:20) Patient Weight History - Last Four 1. 161.2 lbs. / 73.1 kg. on DEC 25, 2023@13:20:55 2. 164.0 lbs. / 74.4 kg. on OCT 10, 2022@13:34:31 3. 166.2 lbs. / 75.4 kg. on SEP 26, 2022@11:00:18 Allergies: Patient has answered NKA Relevant Labs: Complete Blood Count WBC: 7.7 10*3/uL (12/25/23 15:51) RBC: 4.30 10*6/uL (12/25/23 15:51) HGB: HGB 13.9 g/dL 12/25/2023 15:51 HCT: 38.8 % (12/25/23 15:51) PLT: PLT 220 10*3/uL 12/25/2023 15:51 Comprehensive Metabolic Panel SODIUM 141 mEq/L 12/25/2023 15:51 POTASSIUM 3.7 mEq/L 12/25/2023 15:51 CHLORIDE 109 H mEq/L 12/25/2023 15:51 UREA NITROGEN 13.2 mg/dL 12/25/2023 15:51 CREATININE 1.13 mg/dL 12/25/2023 15:51 CALCIUM 9.0 mg/dL 12/25/2023 15:51 PROTEIN 7.1 g/dL 12/25/2023 15:51 ALBUMIN 4.4 g/dL 12/25/2023 15:51 ALKALINE PHOSPHATASE 70 U/L 12/25/2023 15:51 ALT/SGPT 13 U/L 12/25/2023 15:51 AST/SGOT 13 U/L 12/25/2023 15:51 TOTAL BILIRUBIN 0.6 mg/dL 12/25/2023 15:51 CARBON DIOXIDE 20 L mEq/L 12/25/2023 15:51 GLUCOSE 100 H mg/dL 12/25/2023 15:51 EGFR (CKD-EPI 2020) 75.8 12/25/2023 15:51 Coagulation parameters PT: ____ INR: ____ PTT: No PTT EO data found Lipid Panel TRIGLYCERIDE 118 mg/dL 12/25/2023 15:51 CHOLESTEROL 219 H mg/dL 12/25/2023 15:51 HDL(New) 51 mg/dL 12/25/2023 15:51 CALCULATED LDL 144 mg/dL 12/25/2023 15:51 HgbA1c: HGA1C 5.0 % 12/25/2023 15:51 TSH 1.434 uIU/mL 10/10/2022 15:33 B12: No B12 EO data found Folate: No FOLATE (STL-MA);FOLATE (PB);FOLATE (DC 01-07);FOLATE (DC 01/07) data found VITAMIN D, 25-HYDROXY 31.7 ng/mL 10/10/2022 15:33 Urine Drug Screen No data available Physical Exam: General: No acute distress, seated comfortably, healthy appearing CV/Resp: No labored breathing, no cyanosis appreciated Extremities: No gross abnormalities, moving all spontaneously Neurological: The patient is awake, alert, and grossly oriented. Normal gait and station, no gross focal deficits Skin: No obvious rashes or defects on exposed skin Mental Status Exam: Appearance: appears stated age Behavior: cooperative, friendly Eye contact: good Speech: decr rate/rhythm Psychomotor: PM slowing Mood: not great Affect: congruent, dysthymic Thought process: linear, goal oriented Thought content: +SI Perception: not seen reacting to internal stimuli Cognition: Alert and oriented, memory fair, concentration fair Fund of knowledge: average Insight: fair Judgment: fair Review of systems: Negative except where noted above. SAFETY RISK ASSESSMENT: As noted below, patient has some chronic non- modifiable risk factors and several protective factors as well. Risk factors for suicide: * chronic mental illness * gender * medical comorbidities * recent psychosocial stressors Protective factors: * no history of suicide attempts * no inpatient admissions * exhibits future planning * medication compliant * engaged in treatment * access to treatment * future orientation * responsibility towards family * scientology/spiritual rodney * no access to lethal means History of violence: * none Acute risk of harm to self or others is currently low-intermediate. Chronic risk of harm to self or others is elevated due to above non-modifiable risk factors. Patient will benefit from ongoing outpatient mental health treatment. Patient has been advised to call [phone] or go to closest ER in the case of a mental health emergency. ASSESSMENT: LILLI DEAN is a with PMH of MDD who initially presented on 10/26/2022 for treatment of depression. He followed with Dr. Ballard and eventually joined my clinic on 02/13/2024. Today, the reported he has been without his medications for several months as he did not tolerate the prozac. He feels strongly that he needs to return to an SSRI and requested we try out lexapro again, as it was very helpful back in [place]. Given GI side effects in 2022, we will stay at 5 mg for 2 weeks and only increase should he tolerate the 5 mg. He will call if he does not tolerate or changes the above plan. We also discussed the possibility of an inpatient hospitalization and how to access this resource. He does not meet criteria for involuntary admission and declined a voluntary admission at this time. He reported feeling safe at home and has no access to lethal means. He stated he would call us or [phone] should he need assistance between appts. DIAGNOSES: # MDD TREATMENT PLAN: # MDD - Start lexapro 5 mg x14d then 10 mg if tolerated well - Consider celexa (given good efficacy with lexapro) if lexapro not tolerated well. Can also consider WBT or SNRI *52 min FTF time spent with , not including chart review, documentation, etc* FOLLOW UP: 4 weeks SUPPORTIVE PSYCHOTHERAPY/PSYCHOEDUCAT ION: n/a INSTRUCTIONS GIVEN TO PATIENT/FAMILY *Report medication side effects promptly *No alcohol/illicit drug use with medication *Exercise caution with driving/use of machinery *Monitor for sedation with use of the medication and if needed avoid use in situations where decreased level of alertness could potentially be dangerous *Follow up with Primary Care Provider *If symptoms get worse, call clinic or Emergency Room as appropriate *Provided orientation to the inter-disciplinary team and ways to access crisis/emergency care CONSENT We have discussed alternatives to treatment, including no treatment, as well as risks, benefits, side effects. The patient/guardian understood and consented to treatment provided. The patient is aware to call clinic or the emergency room as appropriate if symptoms get worse or if they experience side effects from medications. After a thorough discussion of risks and benefits, patient and provider jointly agreed on prescribing an SSRI/SNRI to address significant mental health symptoms as above. We discussed the risk of side effects, including, but not limited to, GI symptoms, headaches, hyponatremia, sexual dysfunction, serotonin syndrome (when combined with other serotonergic medications such as dextromethorphan, opioids, triptans, zofran, etc). Patient advised to reach out to clinic if they have any side effects and to go to the closest ER or to call [phone] if they have serious side effects such as serotonin syndrome. Patient reported understanding and had no further questions. REMINDERS: Suicide Screen - V: C-SSRS Screening [place]-Suicide Severity Rating Scale (C-SSRS Screener) 1. Over the past month, have you wished you were or wished you could go to sleep and not wake up? Yes 2. Over the past month, have you had any actual thoughts of killing yourself? No 3. Over the past month, have you been thinking about how you might do this? Response not required due to responses to other questions. 4. Over the past month, have you had these thoughts and had some intention of acting on them? Response not required due to responses to other questions. 5. Over the past month, have you started to work out or worked out the details of how to kill yourself? Response not required due to responses to other questions. 6. If yes, at any time in [...] went to the roof but didn't jump)? No 8. If YES, was this within the past 3 months? Response not required due to responses to other questions. /adore/ JERALD RAYGOZA [facility]rist[facility] Signed: 02/13/2024 10:59 02/14/2024 ADDENDUM STATUS: COMPLETED Spoke to and provided information for the [employer] closest to his address: [place] [address] [place] [address] ([address]) [place] [address] read back above information. [place] also was concerned, because he realized he took a full pill of the escitalopram instead of half a pill. Advised to take the next half pill tomorrow as scheduled and went over medication administration instructions to take 1/2 tablet for 2 weeks and then increase to 1 full tablet. voices understanding. /adore/ HERBIE ATKINSN RN Registered Nurse, [facility] Signed: 02/14/2024 15:56 JERALD RAYGOZA [facility]
--- OUTSIDE RECORDS SUMMARY | 2024-04-24 13:07 | XMS_ITS | Encounter Summary ---
Author Name [facility] [facility] [place] Address [address] [place] [address] Care Team Providers Care Chief Revenue Officer Name Role Phone SOBEIDA PERSON Primary Care [...] ONE EXCHA NGE May 03, 2023 ILONEX [id number] [phone] LILLI TALLEY PATIENT [employer] PRESCRIPT ION RX PLAN May 03, 2023 EXCIL [id number] [phone] LILLI TALLEY PATIENT FORMERLY [facility] CE ORGANIZAT ION [facility] SILVE R ADVAN TAGE May 03, 2023 ILONEX [id number] [phone] LILLI TALLEY PATIENT Selected Encounter This section includes the information on record at [place] for the Encounter. Date/Time Encounter Type Encounter Description Reason Provider Source Dec 25, 2023 02:30 PM PSYTX CRISIS INITIAL 60 MIN [facility] INDIV ICD-10-CM R45.851 Suicidal ideations LUIS E RUSSELL [facility] Encounter Template Text not used by [place] Assessments - Encounter Diagnoses This section includes the primary and secondary diagnoses documented for the Encounter. Date/Time Primary/Secondary Diagnosis Diagnosis Name Provider Source Dec 25, 2023 03:52 PM PRIMARY Suicidal ideations LUIS E RUSSELL [facility] Dec 25, 2023 03:52 PM SECONDARY Depression, unspecified [facility] Plan of Treatment: Future Appointments (+ 6 months) and Future Tests (+/- 45 days) The Plan of Treatment section includes [facility] care [facility] the [facility] [place] [facility] This section includes future appointments and future orders which are active, pending or scheduled. Future Appointments This section includes appointments that were scheduled to occur 6 months from the date of the Encounter, up to a maximum of 20 appointments. The data comes from all [facility]. Appointment Date/Time Appointment Type Appointme nt Facility Name Jan 04, 2024 10:00 AM AMBULATORY - MEDICINE [facility] Jan 21, 2024 10:00 AM AMBULATORY - MEDICINE [facility] Feb 13, 2024 10:00 AM AMBULATORY - PSYCHIATRY [facility] Jun 23, 2024 02:30 PM AMBULATORY - PSYCHIATRY [facility] Active, Pending, and Scheduled Orders This section includes a listing of several types of active, pending, and scheduled orders, including clinic medications orders, diagnostic test orders, procedure orders and consult orders; where the start date of the order is 45 days before the date of the Encounter or 45 days after the date of theEncounter. The data comes from all [facility]. Test Date/Time Test Type Test Details Facility Name Dec 25, 2023 12:00 AM Laboratory - Chemi stry Order OCCULT BLOOD FIT X1 SCREEN STOOL FECES SP [facility] Lab Results: +/- 30 days of the encounter This section includes the Chemistry and Hematology Lab Results on record with [place] for the patient. Radiology Reports and Pathology Reports are provided separately, in subsequent sections. Lab Results This section contains the Chemistry/Hematology Results that were resulted 30 days before or 30 daysafter the date of the Encounter. Date/Time Source Result Type Result - Unit Interpretation Reference Range Comment Dec 25, 2023 03:58 PM [facility] URINALYSIS W/ CX REFLEX (STL-PB) Specimen Type: URINE No comment entered. Ordering Provider: SOBEIDA PERSON Report Released Date/Time: Dec 25, 2023 01:57 PM Reporting Lab: [facility] [address] [place] [id number] Performing Lab: [address] [address] URINE COLOR Light-Yellow Yellow U.BILIRUBIN Negative mg/dL [...] 1.005-1.02 9 Dec 25, 2023 03:51 PM [facility] COMPREHENSIVE METABOLIC PANEL Specimen Type: PLASMA Comment: No hemolysis noted. Ordering Provider: SOBEIDA PERSON Report Released Date/Time: Dec 17, 2023 11:30 AM Reporting Lab: [facility] [address] [place] [phone] Performing Lab: [address] [address] CREATININE 1.13 mg/dL 0.7-1.3 UREA NITROGEN 13.2 [...] 75.8 >60 Dec 25, 2023 03:51 PM [facility] LIPID PANEL (STL) Specimen Type: PLASMA Comment: No hemolysis noted. Ordering Provider: SOBEIDA PERSON Report Released Date/Time: Dec 17, 2023 11:30 AM Reporting Lab: [address] [address] Performing Lab: [address] [address] CHOLESTEROL 219 mg/dL H 0-200 TRIGLYCERIDE 118 mg/dL 0-150 CALCULATED LDL 144 mg/dL HDL(New) 51 mg/dL >40 Dec 25, 2023 03:51 PM [facility] CBC Specimen Type: BLOOD No comment entered. Ordering Provider: SOBEIDA PERSON Report Released Date/Time: Dec 17, 2023 11:30 AM Reporting Lab: [address] [address] Performing Lab: [facility] [address] [place] [phone] WBC 7.7 10*3/uL 3.6-11.2 RBC 4.30 10*6/uL [...] 10*3/uL 0.00-0.20 Dec 25, 2023 03:51 PM [facility] PROST. SPECIFIC AG.(PB-STL) Specimen Type: SERUM Comment: The listed sex of this patient may not be a typical indication for this test. Therefore, reference ranges or interpretive criteria listed may not be valid. Clinical correlation suggested. Ordering Provider: SOBEIDA PERSON Report Released Date/Time: Dec 17, 2023 11:30 AM Reporting Lab: [facility] [address] [facility] [address] Performing Lab: [facility] [address] [facility] [address] PROST. SPECIFIC AG.(PB-STL) 1.639 ng/mL 0-4 Dec 25, 2023 03:51 PM [facility] HGA1C Specimen Type: BLOOD No comment entered. Ordering Provider: SOBEIDA PERSON Report Released Date/Time: Dec 17, 2023 11:30 AM Reporting Lab: [facility] [address] [facility] [phone] Performing Lab: [facility] [address] [facility] [phone] HGA1C 5.0 4.0-6.0 Vital Signs: All taken on the encounter date This section contains inpatient and outpatient Vital Signs collected on the date of the Encounter. Date/Time Temperature Pulse Blood Pressure Respiratory Rate SP02 Pain Height Weight Body Mass Index Source Dec 25, 2023 01:38 PM 76 158/103 [facility] Dec 25, 2023 01:20 PM 98 63 166/93 16 95 0 67 161.2 25 [facility] Social History: Smoking Status (Most current) and Tobacco Use (All prior to encounter date) This section includes the most current, and the historical, smoking and tobacco- related health factors from the [place] facility where the Encounter took place. Current Smoking Status This section includes the most current smoking, or tobacco-related health factor, from the [place] facility where the Encounter took place. Date/Time Current Smoking Status Comment [place] Dec 25, 2023 02:00 PM VA-TOBACCO NEVER USED [facility] Encounter Notes: All associated encounter notes This section contains the clinical notes associated to the Encounter. Date/Time Encounter Note(s) Provider Source Dec 25, 2023 03:52 PM MENTAL HEALTH NOTE : LOCAL TITLE: MH TRIAGE STL STANDARD TITLE: MENTAL HEALTH NOTE DATE OF NOTE: DEC 25, 2023@15:52 ENTRY DATE: DEC 25, 2023@15:52:32 AUTHOR: LUIS E RUSSELL COSIGNER: URGENCY: STATUS: COMPLETED NAME: LILLI DEAN DATE OF : Dec TIME SPENT WITH PATIENT: 30 minutes DIAGNOSTIC IMPRESSION (THIS VISIT): suicidal ideations, depression CPT Code: [address] VIA: [id number] If Others were present for this appointment, it is listed here: REASON FOR VISIT: Brief behavioral health screening to determine urgency of mental health care needs, address urgent/emergent issues, and identify a follow up care plan. PRESENTING PROBLEM: SOBEIDA PERSON referred this [place] to [facility] re: positive suicide screen Please see comprehensive suicide risk evaluation completed during today's session for more information. [place] reported passive SI with no intent, plans, means, or preparatory behaviors. Osmar ran out of psychiatric medications, he also had side affects. He has not followed up with psychiatry, last seen 02/05/23. Osmar wishes to re-engage with psychiatry and psychotherapy. Osmar lives with his girlfriend. His primary trigger is being alone, in the dark, and being hungry. Suggested Leight eat regularly, turn lights on especially when home alone, and go outside to get fresh air. Osmar may benefit from additional safety planning/ coping skills. Leight denied ETOH and drug use. He sleeps enough, but feels exhausted. Leight feels he does not have family he can rely on. INTERVENTIONS: Rapport building Goal setting Provision of psychoeducational resources and contacts was provided with empathetic listening and given the opportunity to express thoughts and feelings regarding current concerns Other: TREATMENT GOALS FOR THIS SESSION: a. To identify the appropriate setting for subsequent evaluation and treatment, and to initiate a plan of care. b. To provide emergency contact information for mental health services. c. To instill hope in the recovery process. d. Other: RISK MANAGEMENT: Assessment for SI/HI: The denies HI, suicidal intent or plan at this time. The is not judged to be at imminent risk for self/other harm at this time. The remains suitable for the current level of care. As a matter of general purchasing agent, was informed of crisis hotline and given contact information. PLAN FOR CARE, INCLUDING FOLLOW-UP RECOMMENDATIONS: Alerting Osmar's MH tx coordinator: Osmar wishes to re-engage in services. PROGRESS TOWARDS GOAL: [place] agrees with initial plan for care FOLLOW-UP CONTACT INFORMATION WAS PROVIDED FOR: [facility] Crisis [facility] Number for 23/10 assistance: , press 1 for [facility] Mental [facility] Point of Contact (e.g. [facility], assigned MH team) /adore/ Luis E Russell PsyD Clinical Psychologist Signed: 12/25/2023 16:00 Receipt Acknowledged By: 12/25/2023 16:24 /adore/ JUNIOR ATKINS RN Registered Nurse, [facility] LUIS E RUSSELL [facility] Dec 25, 2023 02:35 PM SUICIDE PREVENTION RISK ASSESSMENT SCREENING NOTE: LOCAL TITLE: SUICIDE RISK EVALUATION - COMPREHENSIVE STANDARD TITLE: SUICIDE PREVENTION RISK ASSESSMENT SCREENING NOT DATE OF NOTE: DEC 25, 2023@14:35 ENTRY DATE: DEC 25, 2023@14:35:42 AUTHOR: LUIS E RUSSELL EXP COSIGNER: URGENCY: STATUS: COMPLETED Comprehensive Suicide Risk Evaluation --------- This is an update to an existing suicide risk evaluation. The validity of the information contained within this evaluation is not in question. Suicidal Ideation The most recent thoughts of engaging in suicide-related behavior were within the past 30 days. Yesterday, It's an everyday thing. Osmar says he was looking at life in a negative light, it's the same old bull shit. Osmar noted that when he is hungry and eats it puts the fire out for the rest of the day. Osmar wonders every day that passes, which day will be his last. Osmar asks for help from God when he has thoughts of doing himself in, even on his worst days he asks for help from God. He tends to have thoughts when he is alone and sitting in the dark. Osmar realizes that if he is gone, there is no chance to change things for the better. The did not have suicidal intent at the time of the most recent ideation. The did not have a suicide plan at the time of the most recent ideation. It is not known or unclear if the most recent suicidal ideation was the most severe ideation within the last 30 days. The [place] does not have access to lethal means (firearms) The does not have access to other lethal means. Suicidal Behavior The [place] has not made any suicide attempts since the last [place] Comprehensive Suicide Risk Evaluation was completed. The [place] did not report any prior preparatory behaviors that have not been previously documented. Warning Signs The following warning signs are currently present for the : Increased isolation, running out of his psychiatric medications Additional past warning signs include: Risk Factors Psychological conditions or symptoms Please Describe: diagnosed with depression Protective Factors and Reasons for Living Access to and engagement with health care Reports motivation for mental health treatment Has a significant other Hope for the future Protective personal traits or beliefs Reports voodoo or spiritual beliefs/connections Clinical Impressions: The clinical impression of acute risk is Low ACUTE Risk. As evidenced by: no plan or intent or means, cognitive flexibility, future thinking The clinical impression of chronic risk is Low CHRONIC Risk. As evidenced by: utilizes resources, no intent or means or plans, no hx of self-harm or suicidal behaviors Suicide Risk Mitigation Plan: This treatment and care plan was developed in collaboration with the [place]. Risk Mitigation Plan: Strategies for Managing Risk in OUTPATIENT setting Suicide Director Business Systems was not alerted for consideration of a Patient Record Flag Category I High Risk for Suicide. Address barriers to treatment engagement, referral back to [facility] Discuss with ways to increase a sense of purpose and meaning Offer behavioral activation resources which may include journaling, bibliotherapy, increased group participation, and/or exercise: suggested Vet turn on lights and go outside when feeling alone Provide with phone number for [place]'s Crisis Line: Dial 988 (Press 1), Text to 524039, or Chat Educate [place] on emergency services Re-evaluation: Due to the dynamic nature of some warning signs, risk and protective factors, suicide risk should be routinely re-evaluated. These risk management strategies were chosen to address 's current presentation and feasible treatment options within the system of care. This plan should be re-evaluated over time. /adore/ Luis E Russell PsyD Clinical Psychologist Signed: 12/25/2023 15:52 Receipt Acknowledged By: 12/25/2023 16:23 /adore/ JUNIOR ATKINS RN Registered Nurse, [facility]
--- OUTSIDE RECORDS SUMMARY | 2024-04-24 13:16 | XMS_ITS | Continuity of Care Document ---
Author Name [facility] Organization [facility] Care Team Providers Care Ditcher Name Role Phone [facility] Unavailable Unavailable Problems Combined list of problems from Department of Defense and Veterans Affairs facilities. It does not include entries that were removed or entered in error. Problem Status Onset Date Problem Type Date of Resolution Comments Source Depression Active Condition [facility] Elevated PSA Active Condition [facility] Headache Active Condition [facility] Hyperlipidemia Active Condition [facility] Diagnosis: ICD-10-CM F32.A Depression, unspecified Active Diagnosis [facility] Diagnosis: ICD-10-CM Z71.9 Counseling, unspecified Active Diagnosis [facility] Diagnosis: ICD-10-CM R03.0 Elevated blood-pressure reading, w/o diagnosis of htn Active Diagnosis [facility] Diagnosis: ICD-10-CM R45.851 Suicidal ideations Active Diagnosis [facility] Diagnosis: ICD-10-CM Z23 Encounter for immunization Active Diagnosis [facility] Diagnosis: ICD-10-CM Z59.00 Homelessness unspecified Active Diagnosis [facility] Diagnosis: ICD-10-CM Z71.89 Other specified counseling Active Diagnosis [facility] Diagnosis: ICD-10-CM Z59.811 Housing instability, housed, with risk of homelessness Active Diagnosis [facility] Diagnosis: ICD-10-CM F33.2 Major depressv disorder, recurrent severe w/o psych features Active Diagnosis [facility] Medications Combined list of outpatient medications [...] DAY ORAL ACTIVE NAYA,ESSENCE A D 2022 [facility] ESCITALOPRA M OXALATE 10MG TAB TAKE ONE-HALF TABLET BY MOUTH ONCE A DAY FOR 14 DAYS, THEN TAKE ONE TABLET ONCE A DAY FOR 46 DAYS ORAL ACTIVE 02/13/2025 [id number] 4 JERALD RAYGOZA 2023 53 [facility] N FLUOXETINE HCL 10MG CAP TAKE ONE CAPSULE BY MOUTH EVERY MORNING ORAL 02/06/2024 [id number] 3 IRENE DOWNS JR 2022 30 [facility] Immunizations Combined list of available immunizations from the Department of Defense and Veterans Affairs facilities. Immunization Series Date Given Administered By Site Reaction Lot Number CVX Code Drug Labor Relations Specialist Status Comments Source INFLUENZA, SPLIT VIRUS, TRIVALENT, PF 2023 PEREZ FOSTER A LEFT DELTO ID [id number] 140 complet ed [facility] COVID-19 (PFIZER), MRNA, LNP-S, PF, NORTH-SUCROSE, 30 MCG/0.3 ML (AGES 12+ YEARS) 2023 PEREZ FOSTER A RIGHT DELTO ID [id number] 309 complet ed [facility] INFLUENZA, INJECTABLE, QUADRIVALENT, PRESERVATIVE FREE 2022 GIN DUVALL A LEFT DELTO ID [id number] 150 complet ed [facility] TDAP 2022 PEREZ FOSTER A LEFT DELTO ID [id number] 115 complet ed [facility] Results Combined list of recent [...] Dec 25, 2023 01:57 PM Reporting Lab: [facility] [address] [facility] [place] [phone] Performing Lab: [address] [address] [facility] URINALYSI S W/ CX REFLEX (STL-PB) BILIRUBIN.T OTAL [PRESENCE] IN URINE BY TEST STRIP Negati vemg/d L 12/24 Specimen Type: URINE No comment entered. Ordering Provider: SOBEIDA PERSON Report Released Date/Time: Dec 25, 2023 01:57 PM Reporting Lab: [address] [address] Performing Lab: [place] [phone] URINALYSI S W/ CX REFLEX (STL-PB) PH OF URINE BY TEST STRIP 5.5 5.0 - 8.0 12/24 Specimen Type: URINE No comment entered. Ordering Provider: SOBEIDA PERSON Report Released Date/Time: Dec 25, 2023 01:57 PM Reporting Lab: [address] [address] Performing Lab: [address] [phone] [place] [address] URINALYSI S W/ CX REFLEX (STL-PB) LEUKOCYTES [#/AREA] IN URINE SEDIMENT BY MICROSCOPY HIGH POWER FIELD 1 /[HPF] 0 - 5 12/24 Specimen Type: URINE No comment entered. Ordering Provider: SOBEIDA PERSON Report Released Date/Time: Dec 25, 2023 01:57 PM Reporting Lab: [address] [address] Performing Lab: [address] [phone] [place] [address] URINALYSI S W/ CX REFLEX (STL-PB) APPEARANCE OF URINE Clear 12/24 Specimen Type: URINE No comment entered. Ordering Provider: SOBEIDA PERSON Report Released Date/Time: Dec 25, 2023 01:57 PM Reporting Lab: [address] [address] Performing Lab: [address] [phone] [place] [address] URINALYSI S W/ CX REFLEX (STL-PB) NITRITE [PRESENCE] IN URINE BY TEST STRIP Negati vemg/d L 12/24 Specimen Type: URINE No comment entered. Ordering Provider: SOBEIDA PERSON Report Released Date/Time: Dec 25, 2023 01:57 PM Reporting Lab: [place] [phone] Performing Lab: [address] URINALYSI S W/ CX REFLEX (STL-PB) MUCUS [PRESENCE] IN URINE SEDIMENT BY LIGHT MICROSCOPY RARE/[ LPF] 12/24 Specimen Type: URINE No comment entered. Ordering Provider: SOBEIDA PERSON Report Released Date/Time: Dec 25, 2023 01:57 PM Reporting Lab: [address] [address] Performing Lab: [place] [phone] URINALYSI S W/ CX REFLEX (STL-PB) GLUCOSE [MASS/VOLUM E] IN URINE BY TEST STRIP Normal mg/dL 12/24 Specimen Type: URINE No comment entered. Ordering Provider: SOBEIDA PERSON Report Released Date/Time: Dec 25, 2023 01:57 PM Reporting Lab: [address] [address] Performing Lab: [address] [phone] URINALYSI S W/ CX REFLEX (STL-PB) PROTEIN [MASS/VOLUM E] IN URINE BY TEST STRIP 20 mg/dL - 20 12/24 H Specimen Type: URINE No comment entered. Ordering Provider: SOBEIDA PERSON Report Released Date/Time: Dec 25, 2023 01:57 PM Reporting Lab: [facility] [address] [place], [place] [phone] Performing Lab: [facility] [address] [place] [phone] [address] URINALYSI S W/ CX REFLEX (STL-PB) URN.UROBILI NOGEN Normal mg/dL 12/24 Specimen Type: URINE No comment entered. Ordering Provider: SOBEIDA PERSON Report Released Date/Time: Dec 25, 2023 01:57 PM Reporting Lab: [facility] [address] [place] [address] Performing Lab: [address] URINALYSI S W/ CX REFLEX (STL-PB) HEMOGLOBIN [MASS/VOLUM E] IN URINE BY TEST STRIP Negati vemg/d L 12/24 Specimen Type: URINE No comment entered. Ordering Provider: SOBEIDA PERSON Report Released Date/Time: Dec 25, 2023 01:57 PM Reporting Lab: [facility] [address] [place] [phone] Performing Lab: [facility] [address] [place], [place] [phone] [place] [address] URINALYSI S W/ CX REFLEX (STL-PB) KETONES [MASS/VOLUM E] IN URINE BY TEST STRIP Negati vemg/d L 12/24 Specimen Type: URINE No comment entered. Ordering Provider: SOBEIDA PERSON Report Released Date/Time: Dec 25, 2023 01:57 PM Reporting Lab: [facility] [address] [place], [place] [phone] Performing Lab: [facility] [address] [place] [address] URINALYSI S W/ CX REFLEX (STL-PB) URN.LEUK.ES T. Negati vemg/d L 12/24 Specimen Type: URINE No comment entered. Ordering Provider: SOBEIDA PERSON Report Released Date/Time: Dec 25, 2023 01:57 PM Reporting Lab: [facility] [address] [place], [place] [phone] Performing Lab: [address] [phone] URINALYSI S W/ CX REFLEX (STL-PB) SPECIFIC GRAVITY OF URINE 1.017 1.005 - 1.029 12/24 Specimen Type: URINE No comment entered. Ordering Provider: SOBEIDA PERSON Report Released Date/Time: Dec 25, 2023 01:57 PM Reporting Lab: [place] [address] Performing Lab: [address] CBC LEUKOCYTES [#/VOLUME] IN BLOOD BY AUTOMATED COUNT 7.7 10*3/u L 3.6 - 11.2 12/24 Specimen Type: BLOOD No comment entered. Ordering Provider: SOBEIDA PERSON Report Released Date/Time: Dec 17, 2023 11:30 AM Reporting Lab: [facility] [address] [place] [phone] Performing Lab: [address] [phone] [place] [address] CBC ERYTHROCYTE S [#/VOLUME] IN BLOOD BY AUTOMATED COUNT 4.30 10*6/u L 4.10 - 5.70 12/24 Specimen Type: BLOOD No comment entered. Ordering Provider: SOBEIDA PERSON Report Released Date/Time: Dec 17, 2023 11:30 AM Reporting Lab: [facility] [address] [place] [address] Performing Lab: [facility] [address] [place] [phone] [address] CBC HEMOGLOBIN [MASS/VOLUM E] IN BLOOD 13.9 g/dL 13.1 - 16.8 12/24 Specimen Type: BLOOD No comment entered. Ordering Provider: SOBEIDA PERSON Report Released Date/Time: Dec 17, 2023 11:30 AM Reporting Lab: [facility] [address] [place], [place] [phone] Performing Lab: [address] [phone] [place] [address] CBC HEMATOCRIT [VOLUME FRACTION] OF BLOOD 38.8 38.2 - 48.4 12/24 Specimen Type: BLOOD No comment entered. Ordering Provider: SOBEIDA PERSON Report Released Date/Time: Dec 17, 2023 11:30 AM Reporting Lab: [place] [phone] Performing Lab: [address] CBC MCV [ENTITIC VOLUME] BY AUTOMATED COUNT 90.2 fL 80.0 - 100.0 12/24 Specimen Type: BLOOD No comment entered. Ordering Provider: SOBEIDA PERSON Report Released Date/Time: Dec 17, 2023 11:30 AM Reporting Lab: [facility] [address] [place] [phone] Performing Lab: [address] CBC MCH [ENTITIC MASS] BY AUTOMATED COUNT 32.3 pg 27.0 - 34.0 12/24 Specimen Type: BLOOD No comment entered. Ordering Provider: SOBEIDA PERSON Report Released Date/Time: Dec 17, 2023 11:30 AM Reporting Lab: [address] [phone] Performing Lab: [address] CBC MCHC [MASS/VOLUM E] BY AUTOMATED COUNT 35.8 g/dL 33.0 - 36.0 12/24 Specimen Type: BLOOD No comment entered. Ordering Provider: SOBEIDA PERSON Report Released Date/Time: Dec 17, 2023 11:30 AM Reporting Lab: [facility] [address] Performing Lab: [facility] [address] [place] [phone] [facility] CBC PLATELETS [#/VOLUME] IN BLOOD BY AUTOMATED COUNT 220 10*3/u L 150 - 400 12/24 Specimen Type: BLOOD No comment entered. Ordering Provider: SOBEIDA PERSON Report Released Date/Time: Dec 17, 2023 11:30 AM Reporting Lab: [facility] [address] [place] [phone] Performing Lab: [address] [address] [facility] CBC PLATELET MEAN VOLUME [ENTITIC VOLUME] IN BLOOD BY AUTOMATED COUNT 10.4 fL 7.5 - 11.2 12/24 Specimen Type: BLOOD No comment entered. Ordering Provider: SOBEIDA PERSNO Report Released Date/Time: Dec 17, 2023 11:30 AM Reporting Lab: [facility] [address] [place] [phone] Performing Lab: [address] [address] [facility] CBC ERYTHROCYTE DISTRIBUTIO N WIDTH [RATIO] BY AUTOMATED COUNT 13.4 11.8 - 15.1 12/24 Specimen Type: BLOOD No comment entered. Ordering Provider: SOBEIDA PERSON Report Released Date/Time: Dec 17, 2023 11:30 AM Reporting Lab: [facility] [address] [place] [phone] Performing Lab: [facility] [address] [place] [phone] [facility] CBC LYMPHOCYTES /100 LEUKOCYTES IN BLOOD BY AUTOMATED COUNT 9 12/24 Specimen Type: BLOOD No comment entered. Ordering Provider: SOBEIDA PERSON Report Released Date/Time: Dec 17, 2023 11:30 AM Reporting Lab: [facility] [address] [place] [phone] Performing Lab: [facility] [facility] [address] [facility] CBC MONOCYTES/1 00 LEUKOCYTES IN BLOOD BY AUTOMATED COUNT 5 12/24 Specimen Type: BLOOD No comment entered. Ordering Provider: SOBEIDA PERSON Report Released Date/Time: Dec 17, 2023 11:30 AM Reporting Lab: [address] [phone] Performing Lab: [address] [address] [facility] CBC NEUTROPHILS /100 LEUKOCYTES IN BLOOD BY AUTOMATED COUNT 84 12/24 Specimen Type: BLOOD No comment entered. Ordering Provider: SOBEIDA PERSON Report Released Date/Time: Dec 17, 2023 11:30 AM Reporting Lab: [address] [address] Performing Lab: [address] [address] [facility] CBC EOSINOPHILS /100 LEUKOCYTES IN BLOOD BY AUTOMATED COUNT 1 12/24 Specimen Type: BLOOD No comment entered. Ordering Provider: SOBEIDA PERSON Report Released Date/Time: Dec 17, 2023 11:30 AM Reporting Lab: [facility] [address] [place] [phone] Performing Lab: [address] [phone] [facility] CBC BASOPHILS/1 00 LEUKOCYTES IN BLOOD BY AUTOMATED COUNT 1 12/24 Specimen Type: BLOOD No comment entered. Ordering Provider: SOBEIDA PERSON Report Released Date/Time: Dec 17, 2023 11:30 AM Reporting Lab: [facility] [address] [place] [phone] Performing Lab: [address] [address] [facility] CBC LYMPHOCYTES [#/VOLUME] IN BLOOD BY AUTOMATED COUNT 0.66 10*3/u L 0.77 - 4.50 12/24 L Specimen Type: BLOOD No comment entered. Ordering Provider: SOBEIDA PERSON Report Released Date/Time: Dec 17, 2023 11:30 AM Reporting Lab: [facility] [address] [place] [phone] Performing Lab: [facility] [address] [place] [phone] [facility] CBC MONOCYTES [#/VOLUME] IN BLOOD BY AUTOMATED COUNT 0.41 10*3/u L 0.19 - 0.80 12/24 Specimen Type: BLOOD No comment entered. Ordering Provider: SOBEIDA PERSON Report Released Date/Time: Dec 17, 2023 11:30 AM Reporting Lab: [facility] [address] [place] [phone] Performing Lab: [phone] [place] [address] CBC NEUTROPHILS [#/VOLUME] IN BLOOD BY AUTOMATED COUNT 6.47 10*3/u L 2.10 - 8.00 12/24 Specimen Type: BLOOD No comment entered. Ordering Provider: SOBEIDA PERSON Report Released Date/Time: Dec 17, 2023 11:30 AM Reporting Lab: [facility] [address] [place] [phone] Performing Lab: [facility] [address] [place] [phone] [place] [address] CBC EOSINOPHILS [#/VOLUME] IN BLOOD BY AUTOMATED COUNT 0.05 10*3/u L 0.00 - 0.60 12/24 Specimen Type: BLOOD No comment entered. Ordering Provider: SOBEIDA PERSON Report Released Date/Time: Dec 17, 2023 11:30 AM Reporting Lab: [facility] [address] [place] [phone] Performing Lab: [facility] [address] [place] [phone] [facility] CBC BASOPHILS [#/VOLUME] IN BLOOD BY AUTOMATED COUNT 0.05 10*3/u L 0.00 - 0.20 12/24 Specimen Type: BLOOD No comment entered. Ordering Provider: SOBEIDA PERSON Report Released Date/Time: Dec 17, 2023 11:30 AM Reporting Lab: [facility] [address] [place] [phone] Performing Lab: [facility] [address] [place] [phone] [facility] COMPREHEN SIVE METABOLIC PANEL CREATININE [MASS/VOLUM E] IN SERUM OR PLASMA 1.13 mg/dL 0.7 - 1.3 12/24 Specimen Type: PLASMA Comment: No hemolysis noted. Ordering Provider: SOBEIDA PERSON Report Released Date/Time: Dec 17, 2023 11:30 AM Reporting Lab: [facility] [address] [place] [phone] Performing Lab: [address] [phone] [place] [address] COMPREHEN SIVE METABOLIC PANEL UREA NITROGEN [MASS/VOLUM E] IN SERUM OR PLASMA 13.2 mg/dL 9.0 - 25.0 12/24 Specimen Type: PLASMA Comment: No hemolysis noted. Ordering Provider: SOBEIDA PERSON Report Released Date/Time: Dec 17, 2023 11:30 AM Reporting Lab: [facility] [address] [place] [phone] Performing Lab: [facility] [address] [place] [phone] [facility] COMPREHEN SIVE METABOLIC PANEL GLUCOSE [MASS/VOLUM E] IN SERUM OR PLASMA 100 mg/dL 72 - 99 12/24 H Specimen Type: PLASMA Comment: No hemolysis noted. Ordering Provider: SOBEIDA PERSON Report Released Date/Time: Dec 17, 2023 11:30 AM Reporting Lab: [facility] [address] [place] [phone] Performing Lab: [facility] [address] [place] [phone] [facility] COMPREHEN SIVE METABOLIC PANEL SODIUM [MOLES/VOLU ME] IN SERUM OR PLASMA 141 meq/L 136 - 145 12/24 Specimen Type: PLASMA Comment: No hemolysis noted. Ordering Provider: SOBEIDA PERSON Report Released Date/Time: Dec 17, 2023 11:30 AM Reporting Lab: [facility] [address] [place] [phone] Performing Lab: [address] [phone] [facility] COMPREHEN SIVE METABOLIC PANEL POTASSIUM [MOLES/VOLU ME] IN SERUM OR PLASMA 3.7 meq/L 3.5 - 5 12/24 Specimen Type: PLASMA Comment: No hemolysis noted. Ordering Provider: SOBEIDA PERSON Report Released Date/Time: Dec 17, 2023 11:30 AM Reporting Lab: [address] [phone] Performing Lab: [address] [phone] [place] [address] COMPREHEN SIVE METABOLIC PANEL CHLORIDE [MOLES/VOLU ME] IN SERUM OR PLASMA 109 meq/L 98 - 107 12/24 H Specimen Type: PLASMA Comment: No hemolysis noted. Ordering Provider: SOBEIDA PERSON Report Released Date/Time: Dec 17, 2023 11:30 AM Reporting Lab: [address] [phone] Performing Lab: [address] [address] [facility] COMPREHEN SIVE METABOLIC PANEL CARBON DIOXIDE, TOTAL [MOLES/VOLU ME] IN SERUM OR PLASMA 20 meq/L 22 - 31 12/24 L Specimen Type: PLASMA Comment: No hemolysis noted. Ordering Provider: SOBEIDA PERSON Report Released Date/Time: Dec 17, 2023 11:30 AM Reporting Lab: [facility] [address] [place] [phone] Performing Lab: [address] [address] [facility] COMPREHEN SIVE METABOLIC PANEL CALCIUM [MASS/VOLUM E] IN SERUM OR PLASMA 9.0 mg/dL 8.4 - 10.4 12/24 Specimen Type: PLASMA Comment: No hemolysis noted. Ordering Provider: SOBEIDA PERSON Report Released Date/Time: Dec 17, 2023 11:30 AM Reporting Lab: [address] [phone] Performing Lab: [address] [phone] [place] [address] COMPREHEN SIVE METABOLIC PANEL PROTEIN [MASS/VOLUM E] IN SERUM OR PLASMA 7.1 g/dL 6 - 8.6 12/24 Specimen Type: PLASMA Comment: No hemolysis noted. Ordering Provider: SOBEIDA PERSON Report Released Date/Time: Dec 17, 2023 11:30 AM Reporting Lab: [address] [address] Performing Lab: [address] [address] [facility] COMPREHEN SIVE METABOLIC PANEL ALBUMIN [MASS/VOLUM E] IN SERUM OR PLASMA 4.4 g/dL 3.4 - 5 12/24 Specimen Type: PLASMA Comment: No hemolysis noted. Ordering Provider: SOBEIDA PERSON Report Released Date/Time: Dec 17, 2023 11:30 AM Reporting Lab: [address] [address] Performing Lab: [address] [address] [facility] COMPREHEN SIVE METABOLIC PANEL BILIRUBIN.T OTAL [MASS/VOLUM E] IN SERUM OR PLASMA 0.6 mg/dL 0.2 - 1.2 12/24 Specimen Type: PLASMA Comment: No hemolysis noted. Ordering Provider: SOBEIDA PERSON Report Released Date/Time: Dec 17, 2023 11:30 AM Reporting Lab: [address] [address] Performing Lab: [place] [address] [facility] COMPREHEN SIVE METABOLIC PANEL ALKALINE PHOSPHATASE [ENZYMATIC ACTIVITY/VO LUME] IN SERUM OR PLASMA 70 U/L 40 - 150 12/24 Specimen Type: PLASMA Comment: No hemolysis noted. Ordering Provider: SOBEIDA PERSON Report Released Date/Time: Dec 17, 2023 11:30 AM Reporting Lab: [facility] [address] [place] [phone] Performing Lab: [facility] [address] [place] [phone] [facility] COMPREHEN SIVE METABOLIC PANEL ASPARTATE AMINOTRANSF ERASE [ENZYMATIC ACTIVITY/VO LUME] IN SERUM OR PLASMA 13 U/L 5 - 34 12/24 Specimen Type: PLASMA Comment: No hemolysis noted. Ordering Provider: SOBEIDA PERSON Report Released Date/Time: Dec 17, 2023 11:30 AM Reporting Lab: [facility] [address] [place] [phone] Performing Lab: [facility] [address] [facility] [address] [facility] COMPREHEN SIVE METABOLIC PANEL ALANINE AMINOTRANSF ERASE [ENZYMATIC ACTIVITY/VO LUME] IN SERUM OR PLASMA 13 U/L 8 - 40 12/24 Specimen Type: PLASMA Comment: No hemolysis noted. Ordering Provider: SOBEIDA PERSON Report Released Date/Time: Dec 17, 2023 11:30 AM Reporting Lab: [facility] [address] [facility] [address] Performing Lab: [facility] [address] [facility] [address] [facility] COMPREHEN SIVE METABOLIC PANEL GLOMERULAR FILTRATION RATE/1.73 SQ M.PREDICTED [VOLUME RATE/AREA] IN SERUM, PLASMA OR BLOOD BY CREATININE- BASED FORMULA (CKD-EPI 2020) 75.8 60 12/24 Specimen Type: PLASMA Comment: No hemolysis noted. Ordering Provider: SOBEIDA PERSON Report Released Date/Time: Dec 17, 2023 11:30 AM Reporting Lab: [facility] [address] [place] [phone] Performing Lab: [address] [address] [facility] HGA1C HEMOGLOBIN A1C/HEMOGLO BIN.TOTAL IN BLOOD 5.0 4.0 - 6.0 12/24 Specimen Type: BLOOD No comment entered. Ordering Provider: SOBEIDA PERSON Report Released Date/Time: Dec 17, 2023 11:30 AM Reporting Lab: [address] [address] Performing Lab: [address] [address] [facility] LIPID PANEL (STL) CHOLESTEROL [MASS/VOLUM E] IN SERUM OR PLASMA 219 mg/dL 0 - 200 12/24 H Specimen Type: PLASMA Comment: No hemolysis noted. Ordering Provider: SOBEIDA PERSON Report Released Date/Time: Dec 17, 2023 11:30 AM Reporting Lab: [address] [address] Performing Lab: [address] [address] [facility] LIPID PANEL (STL) TRIGLYCERID E [MASS/VOLUM E] IN SERUM OR PLASMA 118 mg/dL 0 - 150 12/24 Specimen Type: PLASMA Comment: No hemolysis noted. Ordering Provider: SOBEIDA PERSON Report Released Date/Time: Dec 17, 2023 11:30 AM Reporting Lab: [address] [address] Performing Lab: [address] [address] [facility] LIPID PANEL (STL) CHOLESTEROL IN LDL [MASS/VOLUM E] IN SERUM OR PLASMA BY CALCULATION 144 mg/dL 12/24 Specimen Type: PLASMA Comment: No hemolysis noted. Ordering Provider: SOBEIDA PERSON Report Released Date/Time: Dec 17, 2023 11:30 AM Reporting Lab: [address] [place] [address] Performing Lab: [id number] [place] [address] LIPID PANEL (STL) CHOLESTEROL IN HDL [MASS/VOLUM E] IN SERUM OR PLASMA 51 mg/dL 40 12/24 Specimen Type: PLASMA Comment: No hemolysis noted. Ordering Provider: SOBEIDA PERSON Report Released Date/Time: Dec 17, 2023 11:30 AM Reporting Lab: [address] [address] Performing Lab: [id number] [place] [address] [employer]PB-ST L) [employer] [...] Dec 17, 2023 11:30 AM Reporting Lab: [address] [address] Performing Lab: [phone] [place] [address] URINALYSI S (STL) COLOR OF URINE Light- Yellow 12/15 Specimen Type: URINE No comment entered. Ordering Provider: SOBEIDA PERSON Report Released Date/Time: Oct 12, 2022 09:38 AM Reporting Lab: [address] [address] Performing Lab: [address] [phone] [place] [address] URINALYSI S (STL) BILIRUBIN.T OTAL [PRESENCE] IN URINE BY TEST STRIP Negati vemg/d L 12/15 Specimen Type: URINE No comment entered. Ordering Provider: SOBEIDA PERSON Report Released Date/Time: Oct 12, 2022 09:38 AM Reporting Lab: [facility] [address] [place] [phone] Performing Lab: [address] [phone] [place] [address] URINALYSI S (STL) PH OF URINE BY TEST STRIP 6.5 5.0 - 8.0 12/15 Specimen Type: URINE No comment entered. Ordering Provider: SOBEIDA PERSON Report Released Date/Time: Oct 12, 2022 09:38 AM Reporting Lab: [place] [phone] Performing Lab: [address] URINALYSI S (STL) APPEARANCE OF URINE Clear 12/15 Specimen Type: URINE No comment entered. Ordering Provider: SOBEIDA PERSON Report Released Date/Time: Oct 12, 2022 09:38 AM Reporting Lab: [facility] [address] [place] [phone] Performing Lab: [place] [phone] URINALYSI S (STL) NITRITE [PRESENCE] IN URINE BY TEST STRIP Negati vemg/d L 12/15 Specimen Type: URINE No comment entered. Ordering Provider: SOBEIDA PERSON Report Released Date/Time: Oct 12, 2022 09:38 AM Reporting Lab: [address] [address] Performing Lab: [place] [phone] URINALYSI S (STL) GLUCOSE [MASS/VOLUM E] IN URINE BY TEST STRIP Normal mg/dL 12/15 Specimen Type: URINE No comment entered. Ordering Provider: SOBEIDA PERSON Report Released Date/Time: Oct 12, 2022 09:38 AM Reporting Lab: [facility] [address] [place] [phone] Performing Lab: [facility] [address] [place] [phone] [facility] URINALYSI S (STL) PROTEIN [MASS/VOLUM E] IN URINE BY TEST STRIP Negati vemg/d L - 20 12/15 Specimen Type: URINE No comment entered. Ordering Provider: SOBEIDA PERSON Report Released Date/Time: Oct 12, 2022 09:38 AM Reporting Lab: [facility] [address] [place] [phone] Performing Lab: [address] URINALYSI S (STL) URN.UROBILI NOGEN Normal mg/dL 12/15 Specimen Type: URINE No comment entered. Ordering Provider: SOBEIDA PERSON Report Released Date/Time: Oct 12, 2022 09:38 AM Reporting Lab: [facility] [address] [place] [phone] Performing Lab: [phone] URINALYSI S (STL) HEMOGLOBIN [MASS/VOLUM E] IN URINE BY TEST STRIP Negati vemg/d L 12/15 Specimen Type: URINE No comment entered. Ordering Provider: SOBEIDA PERSON Report Released Date/Time: Oct 12, 2022 09:38 AM Reporting Lab: [facility] [address] [place] [phone] Performing Lab: [facility] [address] [place] [phone] URINALYSI S (STL) KETONES [MASS/VOLUM E] IN URINE BY TEST STRIP Negati vemg/d L 12/15 Specimen Type: URINE No comment entered. Ordering Provider: SOBEIDA PERSON Report Released Date/Time: Oct 12, 2022 09:38 AM Reporting Lab: [address] [phone] Performing Lab: [address] [address] [facility] URINALYSI S (STL) URN.LEUK.ES T. Negati vemg/d L 12/15 Specimen Type: URINE No comment entered. Ordering Provider: SOBEIDA PERSON Report Released Date/Time: Oct 12, 2022 09:38 AM Reporting Lab: [address] [address] Performing Lab: [address] [phone] URINALYSI S (STL) SPECIFIC GRAVITY OF URINE 1.015 1.005 - 1.029 12/15 Specimen Type: URINE No comment entered. Ordering Provider: SOBEIDA PERSON Report Released Date/Time: Oct 12, 2022 09:38 AM Reporting Lab: [address] [address] Performing Lab: [phone] [place] [address] PROST. SPECIFIC AG.(PB-ST L) PROSTATE SPECIFIC AG [...] Oct 12, 2022 09:38 AM Reporting Lab: [address] [phone] Performing Lab: [phone] [place] [address] HGA1C HEMOGLOBIN A1C/HEMOGLO BIN.TOTAL IN BLOOD 4.8 4.0 - 6.0 10/10 Specimen Type: BLOOD Comment: No hemolysis noted. Ordering Provider: SOBEIDA PERSON Report Released Date/Time: Oct 04, 2022 02:00 PM Reporting Lab: [facility] [address] [place] [phone] Performing Lab: [facility] [address] [place] [phone] [facility] LIPID PANEL (STL) CHOLESTEROL [MASS/VOLUM E] IN SERUM OR PLASMA 215 mg/dL 0 - 200 10/10 H Specimen Type: PLASMA Comment: No hemolysis noted. Ordering Provider: SOBEIDA PERSON Report Released Date/Time: Oct 04, 2022 02:00 PM Reporting Lab: [address] [address] Performing Lab: [address] [phone] [place] [address] LIPID PANEL (L) TRIGLYCERID E [MASS/VOLUM E] IN SERUM OR PLASMA 85 mg/dL 0 - 150 10/10 Specimen Type: PLASMA Comment: No hemolysis noted. Ordering Provider: SOBEIDA PERSON Report Released Date/Time: Oct 04, 2022 02:00 PM Reporting Lab: [address] [address] Performing Lab: [address] [address] [facility] LIPID PANEL (L) CHOLESTEROL IN LDL [MASS/VOLUM E] IN SERUM OR PLASMA BY CALCULATION 148 mg/dL 10/10 Specimen Type: PLASMA Comment: No hemolysis noted. Ordering Provider: SOBEIDA PERSON Report Released Date/Time: Oct 04, 2022 02:00 PM Reporting Lab: [facility] [address] [place] [phone] Performing Lab: [address] [address] [facility] LIPID PANEL (STL) CHOLESTEROL IN HDL [MASS/VOLUM E] IN SERUM OR PLASMA 50 mg/dL 10/10 Specimen Type: PLASMA Comment: No hemolysis noted. Ordering Provider: SOBEIDA PERSON Report Released Date/Time: Oct 04, 2022 02:00 PM Reporting Lab: [facility] [address] [facility] [phone] Performing Lab: [facility] [address] [facility] [phone] [facility] Vital Signs Combined list of inpatient and outpatient Vital Signs from Department of [facility] and [facility], ranging from 12 months to all on record, depending upon the facility. Vital Sign Value Date Comments Source SYSTOLIC BLOOD PRESSURE 166 12/25/2023 13:20:55 [facility] DIASTOLIC BLOOD PRESSURE 93 12/25/2023 13:20:55 [facility] PULSE OXIMETRY 95 12/25/2023 13:20:55 [facility] WEIGHT 161.2 12/25/2023 13:20:55 [facility] BMI 25kg/m2 12/25/2023 13:20:55 [facility] PAIN 0 12/25/2023 13:20:55 [facility] HEIGHT 67 12/25/2023 13:20:55 [facility] TEMPERATURE 98 12/25/2023 13:20:55 [facility] PULSE 63 12/25/2023 13:20:55 [facility] RESPIRATION 16 12/25/2023 13:20:55 [facility] Encounters Combined list of: 1) Encounters from Department of [facility] Affairs facilities going back up to thelast 18 months. 2) Encounters from the Department of [facility] facilities going back up to 280 months. Location Location Details Encounter Type Encounter Number Reason For Visit Attending Provider ADM Date DC Date Status Disposition Source [facility] Outpatient Encounter [id number] 10/25 [facility] OFFICE O/P NEW MOD 45-59 MIN [id number] Diagnos is: ICD-10- CM F32.A Depress ion, unspeci fied
SINA DOWNS JR 10/26 [facility] Outpatient Encounter [id number] JENNIFER HOLM 10/27 [facility] Outpatient Encounter [id number] 11/02 [facility] OFFICE O/P EST MOD 30-39 MIN [id number] Diagnos is: ICD-10- CM F33.2 Major depress v disorde r, recurre nt severe w/o psych feature s
SINA DOWNS JR 11/09 [facility] HC PRO PHONE CALL 11-20 MIN [id number] Diagnos is: ICD-10- CM F33.2 Major depress v disorde r, recurre nt severe w/o psych feature s
IVANIA HENSLEY 11/13 [facility] Outpatient Encounter [id number] JOSSELINE FRAUSTO 11/20 [facility] Outpatient Encounter [id number] 11/21 [facility] Outpatient Encounter [id number] IVANIA HENSLEY 11/21 [facility] OFFICE O/P EST MOD 30-39 MIN [id number] Diagnos is: ICD-10- CM F32.A Depress ion, unspeci fied
SINA DOWNS JR 11/23 [facility] HC PRO PHONE CALL 5-10 MIN [id number] Diagnos is: ICD-10- CM Z59.811 Housing instabi lity, housed, with risk of homeles sness<b r/> KEREN MEEKS 11/30 [address] [facility] PROGRAM INTAKE ASSESSMENT [id number] Diagnos is: ICD-10- CM Z59.811 Housing instabi lity, housed, with risk of homeles sness<b r/> NAJMA,REJI CENT 12/01 [address] [place] [facility] PROGRAM INTAKE ASSESSMENT [id number] Diagnos is: ICD-10- CM Z59.811 Housing aleidaabi lity, housed, with risk of homeles sness<b r/> NAJMA,REJI CENT 12/01 [address] [facility] HC PRO PHONE CALL 21-30 MIN [id number] Diagnos is: ICD-10- CM F32.A Depress ion, unspeci fied
JOZEF NORWOOD THRYN 12/06 [facility] Outpatient Encounter [id number] NAYA,SOBEIDA D 12/12 [facility] Outpatient Encounter [id number] NAYA,SOBEIDA D 12/13 [facility] Outpatient Encounter [id number] Diagnos is: ICD-10- CM F32.A Depress ion, unspeci fied
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
ZAIN ALSTON 12/14 [facility] Outpatient Encounter [id number] ZAIN ALSTON 12/18 [facility] HC PRO PHONE CALL 5-10 MIN [id number] Diagnos is: ICD-10- CM F32.A Depress ion, unspeci fied
IVANIA HENSLEY 12/19 [facility] Outpatient Encounter [id number] 12/19 [facility] Outpatient Encounter [id number] 12/21 [facility] HC PRO PHONE CALL 11-20 MIN [id number] Diagnos is: ICD-10- CM F32.A Depress ion, unspeci fied
JOZEF NORWOOD THRCHANDA 12/27 [facility] PSYTX W PT 30 MINUTES [id number] Diagnos is: ICD-10- CM F32.A Depress ion, unspeci fied
JENNIFER HOLM 12/29 [facility] [id number] Diagnos is: ICD-10- CM Z71.89 Other specifi ed certified addiction counselor ing<br/ > ALIREZA MORRIS M 12/29 [facility] N [facility] HC PRO PHONE CALL 5-10 MIN [id number] Diagnos is: ICD-10- CM Z59.00 Homeles sness unspeci fied
KEREN MEEKS 01/[address] [facility] Outpatient Encounter [id number] 01/18 [facility] Outpatient Encounter [id number] SOBEIDA PERSON 01/31 [facility] OFFICE O/P EST MOD 30-39 MIN [id number] Diagnos is: ICD-10- CM F32.A Depress ion, unspeci fied
SINA DOWNS JR 02/05 [facility] IMMUNIZATI ON ADMIN [id number] Diagnos is: ICD-10- CM Z23 Encount er for immuniz ation<b r/> LIZZY DUVALL 02/05 [facility] Outpatient Encounter [id number] 10/10 [facility] Outpatient Encounter [id number] SOBEIDA PERSON 10/13 [facility] Outpatient Encounter [id number] 10/19 [facility] Outpatient Encounter [id number] 10/25 [facility] Outpatient Encounter [id number] SOBEIDA PERSON 10/29 [facility] Outpatient Encounter [id number] 11/05 [facility] Outpatient Encounter [id number] 11/05 [facility] Outpatient Encounter [id number] SOBEIDA PERSON 12/16 [facility] Outpatient Encounter [id number] 12/24 [facility] Outpatient Encounter [id number] 12/24 [facility] OFFICE O/P EST MOD 30 MIN [id number] Diagnos is: ICD-10- CM F32.A Depress ion, unspeci fied
SOBEIDA PRESON 12/24 [facility] PSYTX CRISIS INITIAL 60 MIN [id number] Diagnos is: ICD-10- CM R45.851 Suicida l ideatio ns
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
Chichi BELLO F 01/20 [facility] Outpatient Encounter [id number] 02/11 [facility] OFFICE O/P EST HI 40 MIN [id number] Diagnos is: ICD-10- CM F32.A Depress ion, unspeci fied
JERALD RAYGOZA 02/12 [facility] Outpatient Encounter [id number] 04/22 [facility] Social History Combined list of available smoking, tobacco, and other social history from Department of Defense and Veterans Affairs facilities. Social History Type Response Date Comment Sourc e Tobacco smoking status NHIS VA-TOBACCO NEVER USED 12/25/2023 [facility] History of tobacco use VA-TOBACCO NEVER USED 09/26/2022 [facility] Plan of Care List of future care activities from Department of [facility] Affairs facilities. Additional future care activities may be listed in the Assessment and Plan section. Date/Time Care Activity Care Activity Detail Facili ty 06/23/2024 AMBULATORY - PSYCHIATRY AMBULATORY - PSYC HIATRY [facility]
--- OUTSIDE RECORDS SUMMARY | 2024-04-24 13:16 | XMS_ITS | Continuity of Care Document ---
Author Name Hunter, Sara Address [address] [place], [place] [phone] [place] [address] Organization Unknown Address [address] [place], [place] [phone] [place] [address] Medications Problems
--- OUTSIDE RECORDS SUMMARY | 2024-04-24 13:16 | XMS_ITS | Continuity of Care Document ---
Author Name Hunter, Sara Address [address] [place], [place] [phone] [place] [address] Organization Unknown Address [address] [place], [place] [phone] [place] [address] Medications No known medications Problems No known problems
== END 2024-04-21 14:27 | disposition home or self-care (01) ==
PROVIDERS: Emergency Provider Emergency Medicine; PCP Emergency Medicine
DX: S61.451A Open bite of right hand, initial encounter (principal); Z23 Encounter for immunization; I10 Essential (primary) hypertension; Z79.899 Other long term (current) drug therapy; W54.0XXA Bitten by dog, initial encounter
CPT/HCPCS: 12002; 73130; 90471; 90715; 99283; A9270

== ENCOUNTER 2024-05-25 18:40 | Emergency (ER) | payer MEDICAID, SELFPAY ==
--- NOTE | ~2024-05-25 | XR_ITS ---
HISTORY: dog bite COMPARISON: 04/21/2024 TECHNIQUE: 3 views of the right hand were performed. FINDINGS: No acute fracture is identified. 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 The peripheral interphalangeal joint spaces are narrowed but primarily preserved. The carpal arcs are intact. Periarticular osteopenia, suggesting osteoarthritis. Bone mineralization is otherwise unremarkable. Soft tissue defect lateral to the carpal bones No radiopaque foreign body is identified. IMPRESSION: Soft tissue defect and degenerative disease, without acute fracture or dislocation within the right h and, as detailed above. Reviewed, dictated and finalized at location [facility]. [facility] IMPRESSION: Soft tissue defect and degenerative disease, without acute fracture or dislocat ion within the right hand, as detailed above.
--- OUTSIDE RECORDS SUMMARY | 2024-05-25 18:41 | XMS_ITS | Continuity of Care Document ---
Author Name [facility] Organization [facility] Care Team Providers Care Cold Roll Operator Name Role Phone [facility] Unavailable Unavailable Problems Combined list of problems from Department of [facility] and [facility] facilities. It does not include entries that were removed or entered in error. Problem Status Onset Date Problem Type Date of Resolution Comments Source Depression Active Condition [facility] Elevated PSA Active Condition [facility] Headache Active Condition [facility] Hyperlipidemia Active Condition [facility] Diagnosis: ICD-10-CM F32.A Depression, unspecified Active Diagnosis [facility] Diagnosis: ICD-10-CM Z71.9 Counseling, unspecified Active Diagnosis [facility] Diagnosis: ICD-10-CM R03.0 Elevated blood-pressure reading, w/o diagnosis of htn Active Diagnosis [facility] Diagnosis: ICD-10-CM R45.851 Suicidal ideations Active Diagnosis [facility] Diagnosis: ICD-10-CM Z23 Encounter for immunization Active Diagnosis [facility] Diagnosis: ICD-10-CM Z59.00 Homelessness unspecified Active Diagnosis [facility] Diagnosis: ICD-10-CM Z71.89 Other specified counseling Active Diagnosis [facility] Diagnosis: ICD-10-CM Z59.811 Housing instability, housed, with risk of homelessness Active Diagnosis [facility] Medications Combined list of outpatient medications from Department of [facility] and [facility] facilities.Medications provided include 1) outpatient medications from the last 15 months, and 2) patient-reported medications. Medication Details Route Status Patient Instructions Prescription Expires Prescription Number Last Dispense Date Ordering Provider Order Date Order Qty Source CHOLECALCIF CARMEN 25MCG (1,000UNIT) TAB TAKE ONE TABLET BY MOUTH ONCE A DAY ORAL ACTIVE NAYA,ESSENCE A D 2022 [facility] ESCITALOPRA M OXALATE 10MG TAB TAKE ONE-HALF TABLET BY MOUTH ONCE A DAY FOR 14 DAYS, THEN TAKE ONE TABLET ONCE A DAY FOR 46 DAYS ORAL ACTIVE 02/13/2025 [id number] JERALD RAYGOZA [address] [facility] N Immunizations Combined list of available immunizations from the Department of Defense and Veterans Affairs facilities. Immunization Series Date Given Administered By Site Reaction Lot Number CVX Code Drug Wood Ski Maker Status Comments Source INFLUENZA, SPLIT VIRUS, TRIVALENT, PF 2023 PEREZ FOSTER A LEFT DELTO ID [id number] 140 complet ed [facility] COVID-19 (PFIZER), MRNA, LNP-S, PF, NORTH-SUCROSE, 30 MCG/0.3 ML (AGES 12+ YEARS) 2023 PEREZ FOSTER A RIGHT DELTO ID [id number] 309 complet ed [facility] INFLUENZA, INJECTABLE, QUADRIVALENT, PRESERVATIVE FREE 2022 GIN DUVALL A LEFT DELTO ID [id number] [address] [facility] TDAP 2022 PEREZ FOSTER A LEFT DELTO ID [id number] 115 complet ed [facility] Results Combined list of recent chemistry, hematology [...] Dec 25, 2023 01:57 PM Reporting Lab: [facility] [address] [facility] [address] Performing Lab: [facility] [address] [place] [phone] [facility] URINALYSI S W/ CX REFLEX (STL-PB) BILIRUBIN.T OTAL [PRESENCE] IN URINE BY TEST STRIP Negati vemg/d L 12/24 Specimen Type: URINE No comment entered. Ordering Provider: SOBEIDA PERSON Report Released Date/Time: Dec 25, 2023 01:57 PM Reporting Lab: [facility] [address] [place] [phone] Performing Lab: [address] [phone] [place] [address] URINALYSI S W/ CX REFLEX (STL-PB) PH OF URINE BY TEST STRIP 5.5 5.0 - 8.0 12/24 Specimen Type: URINE No comment entered. Ordering Provider: SOBEIDA PERSON Report Released Date/Time: Dec 25, 2023 01:57 PM Reporting Lab: [address] [phone] Performing Lab: [address] [phone] URINALYSI S W/ CX REFLEX (STL-PB) LEUKOCYTES [#/AREA] IN URINE SEDIMENT BY MICROSCOPY HIGH POWER FIELD 1 /[HPF] 0 - 5 12/24 Specimen Type: URINE No comment entered. Ordering Provider: SOBEIDA PERSON Report Released Date/Time: Dec 25, 2023 01:57 PM Reporting Lab: [address] [address] Performing Lab: [address] [phone] [facility] URINALYSI S W/ CX REFLEX (STL-PB) APPEARANCE OF URINE Clear 12/24 Specimen Type: URINE No comment entered. Ordering Provider: SOBEIDA PERSON Report Released Date/Time: Dec 25, 2023 01:57 PM Reporting Lab: [address] [address] Performing Lab: [address] [phone] [place] [address] URINALYSI S W/ CX REFLEX (STL-PB) NITRITE [PRESENCE] IN URINE BY TEST STRIP Negati vemg/d L 12/24 Specimen Type: URINE No comment entered. Ordering Provider: SOBEIDA PERSON Report Released Date/Time: Dec 25, 2023 01:57 PM Reporting Lab: [address] [phone] Performing Lab: [address] [phone] [place] [address] URINALYSI S W/ CX REFLEX (STL-PB) MUCUS [PRESENCE] IN URINE SEDIMENT BY LIGHT MICROSCOPY RARE/[ LPF] 12/24 Specimen Type: URINE No comment entered. Ordering Provider: SOBEIDA PERSON Report Released Date/Time: Dec 25, 2023 01:57 PM Reporting Lab: [place] [phone] Performing Lab: [place] [phone] [place] [address] URINALYSI S W/ CX REFLEX (STL-PB) GLUCOSE [MASS/VOLUM E] IN URINE BY TEST STRIP Normal mg/dL 12/24 Specimen Type: URINE No comment entered. Ordering Provider: SOBEIDA PERSON Report Released Date/Time: Dec 25, 2023 01:57 PM Reporting Lab: [address] [phone] Performing Lab: [address] [phone] [place] [address] URINALYSI S W/ CX REFLEX (STL-PB) PROTEIN [MASS/VOLUM E] IN URINE BY TEST STRIP 20 mg/dL - 20 12/24 H Specimen Type: URINE No comment entered. Ordering Provider: SOBEIDA PERSON Report Released Date/Time: Dec 25, 2023 01:57 PM Reporting Lab: [address] [phone] Performing Lab: [address] [phone] [place] [address] URINALYSI S W/ CX REFLEX (STL-PB) URN.UROBILI NOGEN Normal mg/dL 12/24 Specimen Type: URINE No comment entered. Ordering Provider: SOBEIDA PERSON Report Released Date/Time: Dec 25, 2023 01:57 PM Reporting Lab: [facility] [address] [place], [place] [phone] Performing Lab: [facility] [address] [place] [phone] [place] [address] URINALYSI S W/ CX REFLEX (STL-PB) HEMOGLOBIN [MASS/VOLUM E] IN URINE BY TEST STRIP Negati vemg/d L 12/24 Specimen Type: URINE No comment entered. Ordering Provider: SOBEIDA PERSON Report Released Date/Time: Dec 25, 2023 01:57 PM Reporting Lab: [place] [phone] Performing Lab: [place] [phone] [place] [address] URINALYSI S W/ CX REFLEX (STL-PB) KETONES [MASS/VOLUM E] IN URINE BY TEST STRIP Negati vemg/d L 12/24 Specimen Type: URINE No comment entered. Ordering Provider: SOBEIDA PERSON Report Released Date/Time: Dec 25, 2023 01:57 PM Reporting Lab: [address] [phone] Performing Lab: [address] [phone] [place] [address] URINALYSI S W/ CX REFLEX (STL-PB) URN.LEUK.ES T. Negati vemg/d L 12/24 Specimen Type: URINE No comment entered. Ordering Provider: SOBEIDA PERSON Report Released Date/Time: Dec 25, 2023 01:57 PM Reporting Lab: [address] [address] Performing Lab: [address] [phone] [facility] URINALYSI S W/ CX REFLEX (STL-PB) SPECIFIC GRAVITY OF URINE 1.017 1.005 - 1.029 12/24 Specimen Type: URINE No comment entered. Ordering Provider: SOBEIDA PERSON Report Released Date/Time: Dec 25, 2023 01:57 PM Reporting Lab: [facility] [address] [place] [phone] Performing Lab: [address] [phone] [facility] COMPREHEN SIVE METABOLIC PANEL CREATININE [MASS/VOLUM E] IN SERUM OR PLASMA 1.13 mg/dL 0.7 - 1.3 12/24 Specimen Type: PLASMA Comment: No hemolysis noted. Ordering Provider: SOBEIDA PERSON Report Released Date/Time: Dec 17, 2023 11:30 AM Reporting Lab: [address] [phone] Performing Lab: [address] [address] [facility] COMPREHEN SIVE METABOLIC PANEL UREA NITROGEN [MASS/VOLUM E] IN SERUM OR PLASMA 13.2 mg/dL 9.0 - 25.0 12/24 Specimen Type: PLASMA Comment: No hemolysis noted. Ordering Provider: SOBEIDA PERSON Report Released Date/Time: Dec 17, 2023 11:30 AM Reporting Lab: [address] [phone] Performing Lab: [address] [phone] [facility] COMPREHEN SIVE METABOLIC PANEL GLUCOSE [MASS/VOLUM E] IN SERUM OR PLASMA 100 mg/dL 72 - 99 12/24 H Specimen Type: PLASMA Comment: No hemolysis noted. Ordering Provider: SOBEIDA PERSON Report Released Date/Time: Dec 17, 2023 11:30 AM Reporting Lab: [address] [phone] Performing Lab: [address] [phone] [facility] COMPREHEN SIVE METABOLIC PANEL SODIUM [MOLES/VOLU ME] IN SERUM OR PLASMA 141 meq/L 136 - 145 12/24 Specimen Type: PLASMA Comment: No hemolysis noted. Ordering Provider: SOBEIDA PERSON Report Released Date/Time: Dec 17, 2023 11:30 AM Reporting Lab: [facility] [address] [place] [phone] Performing Lab: [facility] [address] [place] [phone] [facility] COMPREHEN SIVE METABOLIC PANEL POTASSIUM [MOLES/VOLU ME] IN SERUM OR PLASMA 3.7 meq/L 3.5 - 5 12/24 Specimen Type: PLASMA Comment: No hemolysis noted. Ordering Provider: SOBEIDA PERSON Report Released Date/Time: Dec 17, 2023 11:30 AM Reporting Lab: [address] [phone] Performing Lab: [address] [phone] [facility] COMPREHEN SIVE METABOLIC PANEL CHLORIDE [MOLES/VOLU ME] IN SERUM OR PLASMA 109 meq/L 98 - 107 12/24 H Specimen Type: PLASMA Comment: No hemolysis noted. Ordering Provider: SOBEIDA PERSON Report Released Date/Time: Dec 17, 2023 11:30 AM Reporting Lab: [address] [phone] Performing Lab: [facility] [address] [place] [phone] [facility] COMPREHEN SIVE METABOLIC PANEL CARBON DIOXIDE, TOTAL [MOLES/VOLU ME] IN SERUM OR PLASMA 20 meq/L 22 - 31 12/24 L Specimen Type: PLASMA Comment: No hemolysis noted. Ordering Provider: SOBEIDA PERSON Report Released Date/Time: Dec 17, 2023 11:30 AM Reporting Lab: [facility] [address] [place] [phone] Performing Lab: [facility] [address] [place] [address] [phone] COMPREHEN SIVE METABOLIC PANEL CALCIUM [MASS/VOLUM E] IN SERUM OR PLASMA 9.0 mg/dL 8.4 - 10.4 12/24 Specimen Type: PLASMA Comment: No hemolysis noted. Ordering Provider: SOBEIDA PERSON Report Released Date/Time: Dec 17, 2023 11:30 AM Reporting Lab: [place] [phone] Performing Lab: [address] [phone] [place] [address] COMPREHEN SIVE METABOLIC PANEL PROTEIN [MASS/VOLUM E] IN SERUM OR PLASMA 7.1 g/dL 6 - 8.6 12/24 Specimen Type: PLASMA Comment: No hemolysis noted. Ordering Provider: SOBEIDA PERSON Report Released Date/Time: Dec 17, 2023 11:30 AM Reporting Lab: [place] [phone] Performing Lab: [address] [phone] [facility] COMPREHEN SIVE METABOLIC PANEL ALBUMIN [MASS/VOLUM E] IN SERUM OR PLASMA 4.4 g/dL 3.4 - 5 12/24 Specimen Type: PLASMA Comment: No hemolysis noted. Ordering Provider: SOBEIDA PERSON Report Released Date/Time: Dec 17, 2023 11:30 AM Reporting Lab: [address] [address] Performing Lab: [address] [phone] [facility] COMPREHEN SIVE METABOLIC PANEL BILIRUBIN.T OTAL [MASS/VOLUM E] IN SERUM OR PLASMA 0.6 mg/dL 0.2 - 1.2 12/24 Specimen Type: PLASMA Comment: No hemolysis noted. Ordering Provider: SOBEIDA PERSON Report Released Date/Time: Dec 17, 2023 11:30 AM Reporting Lab: [address] [phone] Performing Lab: [facility] [address] [facility] [phone] [facility] COMPREHEN SIVE METABOLIC PANEL ALKALINE PHOSPHATASE [ENZYMATIC ACTIVITY/VO LUME] IN SERUM OR PLASMA 70 U/L 40 - 150 12/24 Specimen Type: PLASMA Comment: No hemolysis noted. Ordering Provider: SOBEIDA PERSON Report Released Date/Time: Dec 17, 2023 11:30 AM Reporting Lab: [facility] [address] [place] [phone] Performing Lab: [facility] [address] [place] [phone] [facility] COMPREHEN SIVE METABOLIC PANEL ASPARTATE AMINOTRANSF ERASE [ENZYMATIC ACTIVITY/VO LUME] IN SERUM OR PLASMA 13 U/L 5 - 34 12/24 Specimen Type: PLASMA Comment: No hemolysis noted. Ordering Provider: SOBEIDA PERSON Report Released Date/Time: Dec 17, 2023 11:30 AM Reporting Lab: [facility] [address] [place] [phone] Performing Lab: [facility] [address] [place] [phone] [facility] COMPREHEN SIVE METABOLIC PANEL ALANINE AMINOTRANSF ERASE [ENZYMATIC ACTIVITY/VO LUME] IN SERUM OR PLASMA 13 U/L 8 - 40 12/24 Specimen Type: PLASMA Comment: No hemolysis noted. Ordering Provider: SOBEIDA PERSON Report Released Date/Time: Dec 17, 2023 11:30 AM Reporting Lab: [facility] [address] [place] [phone] Performing Lab: [facility] [address] [place] [phone] [facility] COMPREHEN SIVE METABOLIC PANEL GLOMERULAR FILTRATION RATE/1.73 SQ M.PREDICTED [VOLUME RATE/AREA] IN SERUM, PLASMA OR BLOOD BY CREATININE- BASED FORMULA (CKD-EPI 2020) 75.8 60 12/24 Specimen Type: PLASMA Comment: No hemolysis noted. Ordering Provider: SOBEIDA PERSON Report Released Date/Time: Dec 17, 2023 11:30 AM Reporting Lab: [facility] [address] [place] [phone] Performing Lab: [facility] [address] [place] [phone] [facility] LIPID PANEL (STL) CHOLESTEROL [MASS/VOLUM E] IN SERUM OR PLASMA 219 mg/dL 0 - 200 12/24 H Specimen Type: PLASMA Comment: No hemolysis noted. Ordering Provider: SOBEIDA PERSON Report Released Date/Time: Dec 17, 2023 11:30 AM Reporting Lab: [facility] [address] [place] [phone] Performing Lab: [address] [phone] [facility] LIPID PANEL (STL) TRIGLYCERID E [MASS/VOLUM E] IN SERUM OR PLASMA 118 mg/dL 0 - 150 12/24 Specimen Type: PLASMA Comment: No hemolysis noted. Ordering Provider: SOBEIDA PERSON Report Released Date/Time: Dec 17, 2023 11:30 AM Reporting Lab: [facility] [address] [place] [phone] Performing Lab: [facility] [address] [place] [phone] [facility] LIPID PANEL (L) CHOLESTEROL IN LDL [MASS/VOLUM E] IN SERUM OR PLASMA BY CALCULATION 144 mg/dL 12/24 Specimen Type: PLASMA Comment: No hemolysis noted. Ordering Provider: SOBEIDA PERSON Report Released Date/Time: Dec 17, 2023 11:30 AM Reporting Lab: [facility] [address] [place] [phone] Performing Lab: [address] [phone] [facility] LIPID PANEL (STL) CHOLESTEROL IN HDL [MASS/VOLUM E] IN SERUM OR PLASMA 51 mg/dL 40 12/24 Specimen Type: PLASMA Comment: No hemolysis noted. Ordering Provider: SOBEIDA PERSON Report Released Date/Time: Dec 17, 2023 11:30 AM Reporting Lab: [facility] [address] [place] [phone] Performing Lab: [facility] [address] [place] [phone] [facility] CBC LEUKOCYTES [#/VOLUME] IN BLOOD BY AUTOMATED COUNT 7.7 10*3/u L 3.6 - 11.2 12/24 Specimen Type: BLOOD No comment entered. Ordering Provider: SOBEIDA PERSON Report Released Date/Time: Dec 17, 2023 11:30 AM Reporting Lab: [address] [phone] Performing Lab: [place] [phone] [place] [address] CBC ERYTHROCYTE S [#/VOLUME] IN BLOOD BY AUTOMATED COUNT 4.30 10*6/u L 4.10 - 5.70 12/24 Specimen Type: BLOOD No comment entered. Ordering Provider: SOBEIDA PERSON Report Released Date/Time: Dec 17, 2023 11:30 AM Reporting Lab: [address] [phone] Performing Lab: [address] [phone] [place] [address] CBC HEMOGLOBIN [MASS/VOLUM E] IN BLOOD 13.9 g/dL 13.1 - 16.8 12/24 Specimen Type: BLOOD No comment entered. Ordering Provider: SOBEIDA PERSON Report Released Date/Time: Dec 17, 2023 11:30 AM Reporting Lab: [facility] [address] [place] [phone] Performing Lab: [address] [phone] [place] [address] CBC HEMATOCRIT [VOLUME FRACTION] OF BLOOD 38.8 38.2 - 48.4 12/24 Specimen Type: BLOOD No comment entered. Ordering Provider: SOBEIDA PERSON Report Released Date/Time: Dec 17, 2023 11:30 AM Reporting Lab: [address] [address] Performing Lab: [address] [phone] [facility] CBC MCV [ENTITIC VOLUME] BY AUTOMATED COUNT 90.2 fL 80.0 - 100.0 12/24 Specimen Type: BLOOD No comment entered. Ordering Provider: SOBEIDA PERSON Report Released Date/Time: Dec 17, 2023 11:30 AM Reporting Lab: [address] [phone] Performing Lab: [address] [phone] [place] [address] CBC MCH [ENTITIC MASS] BY AUTOMATED COUNT 32.3 pg 27.0 - 34.0 12/24 Specimen Type: BLOOD No comment entered. Ordering Provider: SOBEIDA PERSON Report Released Date/Time: Dec 17, 2023 11:30 AM Reporting Lab: [address] [phone] Performing Lab: [address] [phone] [facility] CBC MCHC [MASS/VOLUM E] BY AUTOMATED COUNT 35.8 g/dL 33.0 - 36.0 12/24 Specimen Type: BLOOD No comment entered. Ordering Provider: SOBEIDA PERSON Report Released Date/Time: Dec 17, 2023 11:30 AM Reporting Lab: [address] [address] Performing Lab: [address] [phone] [facility] CBC PLATELETS [#/VOLUME] IN BLOOD BY AUTOMATED COUNT 220 10*3/u L 150 - 400 12/24 Specimen Type: BLOOD No comment entered. Ordering Provider: SOBEIDA PERSON Report Released Date/Time: Dec 17, 2023 11:30 AM Reporting Lab: [address] [phone] Performing Lab: [facility] [address] [facility] [phone] [facility] CBC PLATELET MEAN VOLUME [ENTITIC VOLUME] IN BLOOD BY AUTOMATED COUNT 10.4 fL 7.5 - 11.2 12/24 Specimen Type: BLOOD No comment entered. Ordering Provider: SOBEIDA PERSON Report Released Date/Time: Dec 17, 2023 11:30 AM Reporting Lab: [facility] [address] [place] [phone] Performing Lab: [facility] [address] [place] [phone] [facility] CBC ERYTHROCYTE DISTRIBUTIO N WIDTH [RATIO] BY AUTOMATED COUNT 13.4 11.8 - 15.1 12/24 Specimen Type: BLOOD No comment entered. Ordering Provider: SOBEIDA PERSON Report Released Date/Time: Dec 17, 2023 11:30 AM Reporting Lab: [facility] [address] [place] [phone] Performing Lab: [facility] [address] [place] [phone] [facility] CBC LYMPHOCYTES /100 LEUKOCYTES IN BLOOD BY AUTOMATED COUNT 9 12/24 Specimen Type: BLOOD No comment entered. Ordering Provider: SOBEIDA PERSON Report Released Date/Time: Dec 17, 2023 11:30 AM Reporting Lab: [facility] [address] [place] [phone] Performing Lab: [facility] [address] [place] [phone] [facility] CBC MONOCYTES/1 00 LEUKOCYTES IN BLOOD BY AUTOMATED COUNT 5 12/24 Specimen Type: BLOOD No comment entered. Ordering Provider: SOBEIDA PERSON Report Released Date/Time: Dec 17, 2023 11:30 AM Reporting Lab: [facility] [address] [place] [phone] Performing Lab: [facility] [address] [place] [phone] [facility] CBC NEUTROPHILS /100 LEUKOCYTES IN BLOOD BY AUTOMATED COUNT 84 12/24 Specimen Type: BLOOD No comment entered. Ordering Provider: SOBEIDA PERSON Report Released Date/Time: Dec 17, 2023 11:30 AM Reporting Lab: [facility] [address] [facility] [phone] Performing Lab: [facility] [address] [place] [phone] [facility] CBC EOSINOPHILS /100 LEUKOCYTES IN BLOOD BY AUTOMATED COUNT 1 12/24 Specimen Type: BLOOD No comment entered. Ordering Provider: SOBEIDA PERSON Report Released Date/Time: Dec 17, 2023 11:30 AM Reporting Lab: [facility] [address] [place] [phone] Performing Lab: [facility] [address] [place] [address] [phone] [place] [address] CBC BASOPHILS/1 00 LEUKOCYTES IN BLOOD BY AUTOMATED COUNT 1 12/24 Specimen Type: BLOOD No comment entered. Ordering Provider: SOBEIDA PERSON Report Released Date/Time: Dec 17, 2023 11:30 AM Reporting Lab: [facility] [address] [place] [phone] Performing Lab: [facility] [address] [place] [phone] [facility] CBC LYMPHOCYTES [#/VOLUME] IN BLOOD BY AUTOMATED COUNT 0.66 10*3/u L 0.77 - 4.50 12/24 L Specimen Type: BLOOD No comment entered. Ordering Provider: SOBEIDA PERSON Report Released Date/Time: Dec 17, 2023 11:30 AM Reporting Lab: [facility] [address] [place] [phone] Performing Lab: [facility] [address] [place] [phone] [facility] CBC MONOCYTES [#/VOLUME] IN BLOOD BY AUTOMATED COUNT 0.41 10*3/u L 0.19 - 0.80 12/24 Specimen Type: BLOOD No comment entered. Ordering Provider: SOBEIDA PERSON Report Released Date/Time: Dec 17, 2023 11:30 AM Reporting Lab: [facility] [address] [place] [phone] Performing Lab: [facility] [address] [place] [address] [phone] [place] [address] CBC NEUTROPHILS [#/VOLUME] IN BLOOD BY AUTOMATED COUNT 6.47 10*3/u L 2.10 - 8.00 12/24 Specimen Type: BLOOD No comment entered. Ordering Provider: SOBEIDA PERSON Report Released Date/Time: Dec 17, 2023 11:30 AM Reporting Lab: [address] [phone] Performing Lab: [address] [phone] [place] [address] CBC EOSINOPHILS [#/VOLUME] IN BLOOD BY AUTOMATED COUNT 0.05 10*3/u L 0.00 - 0.60 12/24 Specimen Type: BLOOD No comment entered. Ordering Provider: SOBEIDA PERSON Report Released Date/Time: Dec 17, 2023 11:30 AM Reporting Lab: [address] [phone] Performing Lab: [address] [phone] [facility] CBC BASOPHILS [#/VOLUME] IN BLOOD BY AUTOMATED COUNT 0.05 10*3/u L 0.00 - 0.20 12/24 Specimen Type: BLOOD No comment entered. Ordering Provider: SOBEIDA PERSON Report Released Date/Time: Dec 17, 2023 11:30 AM Reporting Lab: [address] [phone] Performing Lab: [address] [phone] [facility] PROST. SPECIFIC AG.(PB-ST L) PROSTATE SPECIFIC AG [...] Dec 17, 2023 11:30 AM Reporting Lab: [address] [address] Performing Lab: [place] [phone] [place] [address] HGA1C HEMOGLOBIN A1C/HEMOGLO BIN.TOTAL IN BLOOD 5.0 4.0 - 6.0 12/24 Specimen Type: BLOOD No comment entered. Ordering Provider: SOBEIDA PERSON Report Released Date/Time: Dec 17, 2023 11:30 AM Reporting Lab: [address] [phone] Performing Lab: [id number] [place] [address] URINALYSI S (STL) COLOR OF URINE Light- Yellow 12/15 Specimen Type: URINE No comment entered. Ordering Provider: SOBEIDA PERSON Report Released Date/Time: Oct 12, 2022 09:38 AM Reporting Lab: [address] [address] Performing Lab: [address] [address] [facility] URINALYSI S (STL) BILIRUBIN.T OTAL [PRESENCE] IN URINE BY TEST STRIP Negati vemg/d L 12/15 Specimen Type: URINE No comment entered. Ordering Provider: SOBEIDA PERSON Report Released Date/Time: Oct 12, 2022 09:38 AM Reporting Lab: [address] [address] Performing Lab: [address] [address] [facility] URINALYSI S (STL) PH OF URINE BY TEST STRIP 6.5 5.0 - 8.0 12/15 Specimen Type: URINE No comment entered. Ordering Provider: SOBEIDA PERSON Report Released Date/Time: Oct 12, 2022 09:38 AM Reporting Lab: [facility] [address] [place] [phone] Performing Lab: [address] [phone] [place] [address] URINALYSI S (STL) APPEARANCE OF URINE Clear 12/15 Specimen Type: URINE No comment entered. Ordering Provider: SOBEIDA PERSON Report Released Date/Time: Oct 12, 2022 09:38 AM Reporting Lab: [address] [phone] Performing Lab: [address] [phone] [place] [address] URINALYSI S (STL) NITRITE [PRESENCE] IN URINE BY TEST STRIP Negati vemg/d L 12/15 Specimen Type: URINE No comment entered. Ordering Provider: SOBEIDA PERSON Report Released Date/Time: Oct 12, 2022 09:38 AM Reporting Lab: [facility] [address] [place] [phone] Performing Lab: [facility] [address] [place] [phone] [facility] URINALYSI S (STL) GLUCOSE [MASS/VOLUM E] IN URINE BY TEST STRIP Normal mg/dL 12/15 Specimen Type: URINE No comment entered. Ordering Provider: SOBEIDA PERSON Report Released Date/Time: Oct 12, 2022 09:38 AM Reporting Lab: [facility] [address] [place] [phone] Performing Lab: [address] [address] [facility] URINALYSI S (STL) PROTEIN [MASS/VOLUM E] IN URINE BY TEST STRIP Negati vemg/d L - 20 12/15 Specimen Type: URINE No comment entered. Ordering Provider: SOBEIDA PERSON Report Released Date/Time: Oct 12, 2022 09:38 AM Reporting Lab: [facility] [address] [place], [place] [phone] Performing Lab: [facility] [address] [place] [phone] [facility] URINALYSI S (STL) URN.UROBILI NOGEN Normal mg/dL 12/15 Specimen Type: URINE No comment entered. Ordering Provider: SOBEIDA PERSON Report Released Date/Time: Oct 12, 2022 09:38 AM Reporting Lab: [place] [phone] Performing Lab: [place] [phone] URINALYSI S (STL) HEMOGLOBIN [MASS/VOLUM E] IN URINE BY TEST STRIP Negati vemg/d L 12/15 Specimen Type: URINE No comment entered. Ordering Provider: SOBEIDA PERSON Report Released Date/Time: Oct 12, 2022 09:38 AM Reporting Lab: [facility] [address] [place] [phone] Performing Lab: [facility] [address] [place] [address] [phone] [place] [address] URINALYSI S (STL) KETONES [MASS/VOLUM E] IN URINE BY TEST STRIP Negati vemg/d L 12/15 Specimen Type: URINE No comment entered. Ordering Provider: SOBEIDA PERSON Report Released Date/Time: Oct 12, 2022 09:38 AM Reporting Lab: [facility] [address] [place], [place] [phone] Performing Lab: [facility] [address] [place] [address] [phone] [place] [address] URINALYSI S (STL) URN.LEUK.ES T. Negati vemg/d L 12/15 Specimen Type: URINE No comment entered. Ordering Provider: SOBEIDA PERSON Report Released Date/Time: Oct 12, 2022 09:38 AM Reporting Lab: [address] [address] Performing Lab: [address] [address] [facility] URINALYSI S (STL) SPECIFIC GRAVITY OF URINE 1.015 1.005 - 1.029 12/15 Specimen Type: URINE No comment entered. Ordering Provider: SOBEIDA PERSON Report Released Date/Time: Oct 12, 2022 09:38 AM Reporting Lab: [address] [address] Performing Lab: [phone] [place] [address] PROST. SPECIFIC AG.(PB-ST L) PROSTATE SPECIFIC AG [...] Oct 12, 2022 09:38 AM Reporting Lab: [address] [phone] Performing Lab: [address] [phone] [facility] HGA1C HEMOGLOBIN A1C/HEMOGLO BIN.TOTAL IN BLOOD 4.8 4.0 - 6.0 10/10 Specimen Type: BLOOD Comment: No hemolysis noted. Ordering Provider: SOBEIDA PERSON Report Released Date/Time: Oct 04, 2022 02:00 PM Reporting Lab: [address] [address] Performing Lab: [address] [phone] [facility] LIPID PANEL (STL) CHOLESTEROL [MASS/VOLUM E] IN SERUM OR PLASMA 215 mg/dL 0 - 200 10/10 H Specimen Type: PLASMA Comment: No hemolysis noted. Ordering Provider: SOBEIDA PERSON Report Released Date/Time: Oct 04, 2022 02:00 PM Reporting Lab: [address] [phone] Performing Lab: [address] [phone] [facility] LIPID PANEL (STL) TRIGLYCERID E [MASS/VOLUM E] IN SERUM OR PLASMA 85 mg/dL 0 - 150 10/10 Specimen Type: PLASMA Comment: No hemolysis noted. Ordering Provider: SOBEIDA PERSON Report Released Date/Time: Oct 04, 2022 02:00 PM Reporting Lab: [address] [address] Performing Lab: [address] [address] [facility] LIPID PANEL (STL) CHOLESTEROL IN LDL [MASS/VOLUM E] IN SERUM OR PLASMA BY CALCULATION 148 mg/dL 10/10 Specimen Type: PLASMA Comment: No hemolysis noted. Ordering Provider: SOBEIDA PERSON Report Released Date/Time: Oct 04, 2022 02:00 PM Reporting Lab: [address] [address] Performing Lab: [address] [phone] [facility] LIPID PANEL (STL) CHOLESTEROL IN HDL [MASS/VOLUM E] IN SERUM OR PLASMA 50 mg/dL 10/10 Specimen Type: PLASMA Comment: No hemolysis noted. Ordering Provider: SOBEIDA PERSON Report Released Date/Time: Oct 04, 2022 02:00 PM Reporting Lab: [address] [phone] Performing Lab: [address] [address] [facility] Vital Signs Combined list of inpatient and outpatient Vital Signs from Department of [facility] and [facility], ranging from 12 months to all on record, depending upon the facility. Vital Sign Value Date Comments Source SYSTOLIC BLOOD PRESSURE 166 12/25/19 13:20:55 [facility] DIASTOLIC BLOOD PRESSURE 93 024 13:20:55 [facility] PULSE OXIMETRY 95 12/25/2023 13:20:55 [facility] WEIGHT 161.2 12/25/2023 13:20:55 [facility] BMI 25 kg/m2 12/25/2023 13:20:55 [facility] PAIN 0 12/25/2023 13:20:55 [facility] HEIGHT 67 12/25/2023 13:20:55 [facility] TEMPERATURE 98 12/25/2023 13:20:55 [facility] PULSE 63 12/25/2023 13:20:55 [facility] RESPIRATION 16 12/25/2023 13:20:55 [facility] Encounters Combined list of: 1) Encounters from Department of [facility] facilities going backup to the last 18 months, not all [place] inpatient encounters are included; 2) Encounters from the Department of [facility] facilities going backup to 280 months. Location Location Details Encounter Type Encounter Number Reason For Visit Attending Provider ADM Date DC Date Status Disposition Source [facility] OFFICE O/P EST MOD 30-39 MIN [id number] Diagnos is: ICD-10- CM F32.A Depress ion, unspeci fied SINA DOWNS JR 11/23 [facility] HC PRO PHONE CALL 5-10 MIN [id number] Diagnos is: ICD-10- CM Z59.811 Housing instabi lity, housed, with risk of homeles sness KEREN MEEKS L 11/[address] [facility] PROGRAM INTAKE ASSESSMENT [id number] Diagnos is: ICD-10- CM Z59.811 Housing instabi lity, housed, with risk of homeles sness NAJMA,REJI CENT 12/01 [facility] PROGRAM INTAKE ASSESSMENT [id number] Diagnos is: ICD-10- CM Z59.811 Housing gerri aly, housed, with risk of homeles sness NAJMA,REJI CENT 12[facility] HC PRO PHONE CALL 21-30 MIN [id number] Diagnos is: ICD-10- CM F32.A Depress ion, unspeci fied CUCOCA THRYN 12/06 [facility] Outpatient Encounter [id number] NAYA,SOBEIDA D 12/12 [facility] Outpatient Encounter [id number] NAYA,SOBEIDA D 12/13 [facility] Outpatient Encounter [id number] Diagnos is: ICD-10- CM F32.A Depress ion, unspeci fied NAYA,SOBEIDA D 12/13 [facility] HC PRO PHONE CALL 21-30 MIN [id number] Diagnos is: ICD-10- CM Z71.9 Surfboard Maker 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 ALIREZA Gutierrez 12/29 [facility] HC PRO PHONE CALL 5-10 MIN [id number] Diagnos is: ICD-10- CM Z59.00 Homeles sness unspeci fiKEREN Love 01/[address] [facility] Outpatient Encounter [id number] 01/18 [facility] Outpatient Encounter [id number] SOBEIDA PERSON 01/31 [facility] OFFICE O/P EST MOD 30-39 MIN [id number] Diagnos is: ICD-10- CM F32.A Depress ion, unspeci SINA Edmond DONATO M 02/05 [facility] IMMUNIZATI ON ADMIN [id number] Diagnos is: ICD-10- CM Z23 Encount er for immuniz ation LIZZY DUVALL 02/05 [facility] Outpatient Encounter [id number] 10/10 [facility] Outpatient Encounter [id number] SOBEIDA PERSON 10/13 [facility] Outpatient Encounter [id number] 10/19 [facility] Outpatient Encounter [id number] 10/25 [facility] Outpatient Encounter [id number] SOBEIDA PERSON 10/29 [facility] Outpatient Encounter [id number] 11/05 [facility] Outpatient Encounter [id number] 11/05 [facility] Outpatient Encounter [id number] SOBEIDA PERSON 12/16 [facility] Outpatient Encounter [id number] 12/24 [facility] Outpatient Encounter [id number] 12/24 [facility] OFFICE O/P EST MOD 30 MIN [id number] Diagnos is: ICD-10- CM F32.A Depress ion, unspeci fied SOBEIDA PERSON 12/24 [facility] PSYTX CRISIS INITIAL 60 MIN [id number] Diagnos is: ICD-10- CM R45.851 Suicida l ideaANIA Aden T 12/24 [facility] Outpatient Encounter [id number] SOBEIDA PERSON 12/30 [facility] Outpatient Encounter [id number] SOFI CANADA 01/02 [facility] OFF/OP EST MAY X REQ PHY/QHP [id number] Diagnos is: ICD-10- CM R03.0 Elevate d blood-p ressure reading , w/o diagnos is of htn MARLENE THOMASON 01/03 [facility] OFF/OP EST MAY X REQ PHY/QHP [id number] Diagnos is: ICD-10- CM Z71.9 Surfboard Maker ing, unspeci Chichi Brenner 01/20 [facility] Outpatient Encounter [id number] 02/11 [facility] OFFICE O/P EST HI 40 MIN [id number] Diagnos is: ICD-10- CM F32.A Depress ion, unspeci fied TIMOTHYJERALD FrankELISSA 02/12 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 Social History Type Response Date Comment Sourc e Tobacco smoking status NHIS VA-TOBACCO NEVER USED 12/25/2023 [facility] History of tobacco use VA-TOBACCO NEVER USED 09/26/2022 [facility] Plan of Care List of future care activities from Department of Veterans Affairs facilities. Additional future care activities may be listed in the Assessment and Plan section. Date/Time Care Activity Care Activity Detail Facili ty 06/23/2024 AMBULATORY - PSYCHIATRY AMBULATORY - PSYC HIATRY [facility]
--- OUTSIDE RECORDS SUMMARY | 2024-05-25 18:41 | XMS_ITS | Encounter Summary ---
Author Name [facility] [place] [facility] Address [address] [place] [address] Care Team Providers Care Supervisor [employer] Name Role Phone SOBEIDA PERSON Primary Care [...] ONE EXCHA NGE May 03, 2023 ILON[place] [id number] [phone] LILLI TALLEY PATIENT [employer] [facility] PRESCRIPT ION RX PLAN May 03, 2023 EXCIL [id number] [phone] LILLI TALLEY PATIENT [facility] CE ORGANIZAT ION [facility] SILVE R ADVAN TAGE May 03, 2023 ILONEX [id number] [phone] LILLI TALLEY PATIENT Selected Encounter This section includes the information on record at [place] for the Encounter. Date/Time Encounter Type Encounter Description Reason Pro vider Source IHE Encounter Template Text not used by [facility]
[2024-05-25 18:45] VITALS: BP 157/99; PULSE 78; RESP 18; TEMP 36.8; O2SAT 99
--- OUTSIDE RECORDS SUMMARY | 2024-05-25 20:14 | XMS_ITS | Continuity of Care Document ---
Author Name [facility] Organization [facility] Care Team Providers Care Mandrel Maker Name Role Phone [facility] Unavailable Unavailable Problems Combined list of problems from Department of [facility] and [facility] facilities. It does not include entries that were removed or entered in error. Problem Status Onset Date Problem Type Date of Resolution Comments Source Depression Active Condition [facility] Elevated PSA Active Condition [facility] Headache Active Condition [facility] Hyperlipidemia Active Condition [facility] Diagnosis: ICD-10-CM F32.A Depression, unspecified Active Diagnosis [facility] Diagnosis: ICD-10-CM Z71.9 Counseling, unspecified Active Diagnosis [facility] Diagnosis: ICD-10-CM R03.0 Elevated blood-pressure reading, w/o diagnosis of htn Active Diagnosis [facility] Diagnosis: ICD-10-CM R45.851 Suicidal ideations Active Diagnosis [facility] Diagnosis: ICD-10-CM Z23 Encounter for immunization Active Diagnosis [facility] Diagnosis: ICD-10-CM Z59.00 Homelessness unspecified Active Diagnosis [facility] Diagnosis: ICD-10-CM Z71.89 Other specified counseling Active Diagnosis [facility] Diagnosis: ICD-10-CM Z59.811 Housing instability, housed, with risk of homelessness Active Diagnosis [facility] Medications Combined list of outpatient medications from [facility] of [facility] and [facility] facilities.Medications provided include 1) outpatient medications from the last 15 months, and 2) patient-reported medications. Medication Details Route Status Patient Instructions Prescription Expires Prescription Number Last Dispense Date Ordering Provider Order Date Order Qty Source CHOLECALCIF CARMEN 25MCG (1,000UNIT) TAB TAKE ONE TABLET BY MOUTH ONCE A DAY ORAL ACTIVE NAYA,ESSENCE A D 2022 [facility] ESCITALOPRA M OXALATE 10MG TAB TAKE ONE-HALF TABLET BY MOUTH ONCE A DAY FOR 14 DAYS, THEN TAKE ONE TABLET ONCE A DAY FOR 46 DAYS ORAL ACTIVE 02/13/2025 [id number] JERALD RAYGOZA 2023 53 [facility] N Immunizations Combined list of available immunizations from the Department of Defense and Veterans Affairs facilities. Immunization Series Date Given Administered By Site Reaction Lot Number CVX Code Drug Us Marketing Director Status Comments Source INFLUENZA, SPLIT VIRUS, TRIVALENT, PF 2023 PEREZ FOSTER A LEFT DELTO ID [id number] 140 complet ed [facility] COVID-19 (PFIZER), MRNA, LNP-S, PF, NORTH-SUCROSE, 30 MCG/0.3 ML (AGES 12+ YEARS) 2023 PEREZ FOSTER A RIGHT DELTO ID [id number] 309 complet ed [facility] INFLUENZA, INJECTABLE, QUADRIVALENT, PRESERVATIVE FREE 2022 GIN DUVALL A LEFT DELTO ID [id number] 150 complet ed [facility] N TDAP 2022 PEREZ FOSTER A LEFT DELTO ID [id number] 115 complet ed [facility] Results Combined list of recent chemistry, hematology [...] Dec 25, 2023 01:57 PM Reporting Lab: [facility] [address] [facility] [address] Performing Lab: [facility] [address] [place] [phone] [facility] URINALYSI S W/ CX REFLEX (STL-PB) BILIRUBIN.T OTAL [PRESENCE] IN URINE BY TEST STRIP Negati vemg/d L 12/24 Specimen Type: URINE No comment entered. Ordering Provider: SOBEIDA PERSON Report Released Date/Time: Dec 25, 2023 01:57 PM Reporting Lab: [facility] [address] [place] [phone] Performing Lab: [address] [phone] [place] [address] URINALYSI S W/ CX REFLEX (STL-PB) PH OF URINE BY TEST STRIP 5.5 5.0 - 8.0 12/24 Specimen Type: URINE No comment entered. Ordering Provider: SOBEIDA PERSON Report Released Date/Time: Dec 25, 2023 01:57 PM Reporting Lab: [address] [address] Performing Lab: [address] [phone] URINALYSI S W/ CX REFLEX (STL-PB) LEUKOCYTES [#/AREA] IN URINE SEDIMENT BY MICROSCOPY HIGH POWER FIELD 1 /[HPF] 0 - 5 12/24 Specimen Type: URINE No comment entered. Ordering Provider: SOBEIDA PERSON Report Released Date/Time: Dec 25, 2023 01:57 PM Reporting Lab: [address] [phone] Performing Lab: [address] [phone] [facility] URINALYSI S W/ CX REFLEX (STL-PB) APPEARANCE OF URINE Clear 12/24 Specimen Type: URINE No comment entered. Ordering Provider: SOBEIDA PERSON Report Released Date/Time: Dec 25, 2023 01:57 PM Reporting Lab: [address] [address] Performing Lab: [address] [phone] [place] [address] URINALYSI S W/ CX REFLEX (STL-PB) NITRITE [PRESENCE] IN URINE BY TEST STRIP Negati vemg/d L 12/24 Specimen Type: URINE No comment entered. Ordering Provider: SOBEIDA PERSON Report Released Date/Time: Dec 25, 2023 01:57 PM Reporting Lab: [address] [address] Performing Lab: [address] [phone] [place] [address] URINALYSI S W/ CX REFLEX (STL-PB) MUCUS [PRESENCE] IN URINE SEDIMENT BY LIGHT MICROSCOPY RARE/[ LPF] 12/24 Specimen Type: URINE No comment entered. Ordering Provider: SOBEIDA PERSON Report Released Date/Time: Dec 25, 2023 01:57 PM Reporting Lab: [place] [phone] Performing Lab: [place] [phone] [place] [address] URINALYSI S W/ CX REFLEX (STL-PB) GLUCOSE [MASS/VOLUM E] IN URINE BY TEST STRIP Normal mg/dL 12/24 Specimen Type: URINE No comment entered. Ordering Provider: SOBEIDA PERSON Report Released Date/Time: Dec 25, 2023 01:57 PM Reporting Lab: [address] [phone] Performing Lab: [address] [phone] [place] [address] URINALYSI S W/ CX REFLEX (STL-PB) PROTEIN [MASS/VOLUM E] IN URINE BY TEST STRIP 20 mg/dL - 20 12/24 H Specimen Type: URINE No comment entered. Ordering Provider: SOBEIDA PERSON Report Released Date/Time: Dec 25, 2023 01:57 PM Reporting Lab: [address] [phone] Performing Lab: [address] [phone] [place] [address] URINALYSI S W/ CX REFLEX (STL-PB) URN.UROBILI NOGEN Normal mg/dL 12/24 Specimen Type: URINE No comment entered. Ordering Provider: SOBEIDA PERSON Report Released Date/Time: Dec 25, 2023 01:57 PM Reporting Lab: [facility] [address] [place], [place] [phone] Performing Lab: [facility] [address] [place] [phone] [place] [address] URINALYSI S W/ CX REFLEX (STL-PB) HEMOGLOBIN [MASS/VOLUM E] IN URINE BY TEST STRIP Negati vemg/d L 12/24 Specimen Type: URINE No comment entered. Ordering Provider: SOBEIDA PERSON Report Released Date/Time: Dec 25, 2023 01:57 PM Reporting Lab: [place] [phone] Performing Lab: [place] [phone] [place] [address] URINALYSI S W/ CX REFLEX (STL-PB) KETONES [MASS/VOLUM E] IN URINE BY TEST STRIP Negati vemg/d L 12/24 Specimen Type: URINE No comment entered. Ordering Provider: SOBEIDA PERSON Report Released Date/Time: Dec 25, 2023 01:57 PM Reporting Lab: [address] [address] Performing Lab: [address] [phone] [place] [address] URINALYSI S W/ CX REFLEX (STL-PB) URN.LEUK.ES T. Negati vemg/d L 12/24 Specimen Type: URINE No comment entered. Ordering Provider: SOBEIDA PERSON Report Released Date/Time: Dec 25, 2023 01:57 PM Reporting Lab: [address] [address] Performing Lab: [address] [address] [facility] URINALYSI S W/ CX REFLEX (STL-PB) SPECIFIC GRAVITY OF URINE 1.017 1.005 - 1.029 12/24 Specimen Type: URINE No comment entered. Ordering Provider: SOBEIDA PERSON Report Released Date/Time: Dec 25, 2023 01:57 PM Reporting Lab: [address] [address] Performing Lab: [address] [phone] [place] [address] CBC LEUKOCYTES [#/VOLUME] IN BLOOD BY AUTOMATED COUNT 7.7 10*3/u L 3.6 - 11.2 12/24 Specimen Type: BLOOD No comment entered. Ordering Provider: SOBEIDA PERSON Report Released Date/Time: Dec 17, 2023 11:30 AM Reporting Lab: [address] [address] Performing Lab: [address] [phone] [place] [address] CBC ERYTHROCYTE S [#/VOLUME] IN BLOOD BY AUTOMATED COUNT 4.30 10*6/u L 4.10 - 5.70 12/24 Specimen Type: BLOOD No comment entered. Ordering Provider: SOBEIDA PERSON Report Released Date/Time: Dec 17, 2023 11:30 AM Reporting Lab: [address] [phone] Performing Lab: [address] [phone] [place] [address] CBC HEMOGLOBIN [MASS/VOLUM E] IN BLOOD 13.9 g/dL 13.1 - 16.8 12/24 Specimen Type: BLOOD No comment entered. Ordering Provider: SOBEIDA PERSON Report Released Date/Time: Dec 17, 2023 11:30 AM Reporting Lab: [address] [phone] Performing Lab: [address] [phone] [place] [address] CBC HEMATOCRIT [VOLUME FRACTION] OF BLOOD 38.8 38.2 - 48.4 12/24 Specimen Type: BLOOD No comment entered. Ordering Provider: SOBEIDA PERSON Report Released Date/Time: Dec 17, 2023 11:30 AM Reporting Lab: [address] [phone] Performing Lab: [facility] [address] [place] [phone] [place] [address] CBC MCV [ENTITIC VOLUME] BY AUTOMATED COUNT 90.2 fL 80.0 - 100.0 12/24 Specimen Type: BLOOD No comment entered. Ordering Provider: SOBEIDA PERSON Report Released Date/Time: Dec 17, 2023 11:30 AM Reporting Lab: [place] [address] Performing Lab: [address] [phone] [place] [address] CBC MCH [ENTITIC MASS] BY AUTOMATED COUNT 32.3 pg 27.0 - 34.0 12/24 Specimen Type: BLOOD No comment entered. Ordering Provider: SOBEIDA PERSON Report Released Date/Time: Dec 17, 2023 11:30 AM Reporting Lab: [address] [phone] Performing Lab: [address] [phone] [place] [address] CBC MCHC [MASS/VOLUM E] BY AUTOMATED COUNT 35.8 g/dL 33.0 - 36.0 12/24 Specimen Type: BLOOD No comment entered. Ordering Provider: SOBEIDA PERSON Report Released Date/Time: Dec 17, 2023 11:30 AM Reporting Lab: [address] [address] Performing Lab: [address] [phone] [place] [address] CBC PLATELETS [#/VOLUME] IN BLOOD BY AUTOMATED COUNT 220 10*3/u L 150 - 400 12/24 Specimen Type: BLOOD No comment entered. Ordering Provider: SOBEIDA PERSON Report Released Date/Time: Dec 17, 2023 11:30 AM Reporting Lab: [facility] [address] [place] [phone] Performing Lab: [facility] [address] [place] [phone] [facility] CBC PLATELET MEAN VOLUME [ENTITIC VOLUME] IN BLOOD BY AUTOMATED COUNT 10.4 fL 7.5 - 11.2 12/24 Specimen Type: BLOOD No comment entered. Ordering Provider: SOBEIDA PERSON Report Released Date/Time: Dec 17, 2023 11:30 AM Reporting Lab: [address] [phone] Performing Lab: [address] [phone] [place] [address] CBC ERYTHROCYTE DISTRIBUTIO N WIDTH [RATIO] BY AUTOMATED COUNT 13.4 11.8 - 15.1 12/24 Specimen Type: BLOOD No comment entered. Ordering Provider: SOBEIDA PERSON Report Released Date/Time: Dec 17, 2023 11:30 AM Reporting Lab: [facility] [address] [place] [phone] Performing Lab: [address] [phone] [facility] CBC LYMPHOCYTES /100 LEUKOCYTES IN BLOOD BY AUTOMATED COUNT 9 12/24 Specimen Type: BLOOD No comment entered. Ordering Provider: SOBEIDA PERSON Report Released Date/Time: Dec 17, 2023 11:30 AM Reporting Lab: [facility] [address] [place] [phone] Performing Lab: [facility] [address] [place] [address] [phone] [place] [address] CBC MONOCYTES/1 00 LEUKOCYTES IN BLOOD BY AUTOMATED COUNT 5 12/24 Specimen Type: BLOOD No comment entered. Ordering Provider: SOBEIDA PERSON Report Released Date/Time: Dec 17, 2023 11:30 AM Reporting Lab: [facility] [address] [facility] [phone] Performing Lab: [facility] [address] [place] [phone] [facility] CBC NEUTROPHILS /100 LEUKOCYTES IN BLOOD BY AUTOMATED COUNT 84 12/24 Specimen Type: BLOOD No comment entered. Ordering Provider: SOBEIDA PERSON Report Released Date/Time: Dec 17, 2023 11:30 AM Reporting Lab: [facility] [address] [place] [phone] Performing Lab: [address] [phone] [facility] CBC EOSINOPHILS /100 LEUKOCYTES IN BLOOD BY AUTOMATED COUNT 1 12/24 Specimen Type: BLOOD No comment entered. Ordering Provider: SOBEIDA PERSON Report Released Date/Time: Dec 17, 2023 11:30 AM Reporting Lab: [address] [phone] Performing Lab: [address] [address] [facility] CBC BASOPHILS/1 00 LEUKOCYTES IN BLOOD BY AUTOMATED COUNT 1 12/24 Specimen Type: BLOOD No comment entered. Ordering Provider: SOBEIDA PERSON Report Released Date/Time: Dec 17, 2023 11:30 AM Reporting Lab: [address] [address] Performing Lab: [address] [phone] [facility] CBC LYMPHOCYTES [#/VOLUME] IN BLOOD BY AUTOMATED COUNT 0.66 10*3/u L 0.77 - 4.50 12/24 L Specimen Type: BLOOD No comment entered. Ordering Provider: SOBEIDA PERSON Report Released Date/Time: Dec 17, 2023 11:30 AM Reporting Lab: [facility] [address] [place] [phone] Performing Lab: [address] [phone] [facility] CBC MONOCYTES [#/VOLUME] IN BLOOD BY AUTOMATED COUNT 0.41 10*3/u L 0.19 - 0.80 12/24 Specimen Type: BLOOD No comment entered. Ordering Provider: SOBEIDA PERSON Report Released Date/Time: Dec 17, 2023 11:30 AM Reporting Lab: [address] [address] Performing Lab: [address] [phone] [facility] CBC NEUTROPHILS [#/VOLUME] IN BLOOD BY AUTOMATED COUNT 6.47 10*3/u L 2.10 - 8.00 12/24 Specimen Type: BLOOD No comment entered. Ordering Provider: SOBEIDA PERSON Report Released Date/Time: Dec 17, 2023 11:30 AM Reporting Lab: [address] [address] Performing Lab: [address] [phone] [facility] CBC EOSINOPHILS [#/VOLUME] IN BLOOD BY AUTOMATED COUNT 0.05 10*3/u L 0.00 - 0.60 12/24 Specimen Type: BLOOD No comment entered. Ordering Provider: SOBEIDA PERSON Report Released Date/Time: Dec 17, 2023 11:30 AM Reporting Lab: [address] [phone] Performing Lab: [address] [phone] [facility] CBC BASOPHILS [#/VOLUME] IN BLOOD BY AUTOMATED COUNT 0.05 10*3/u L 0.00 - 0.20 12/24 Specimen Type: BLOOD No comment entered. Ordering Provider: SOBEIDA PERSON Report Released Date/Time: Dec 17, 2023 11:30 AM Reporting Lab: [address] [address] Performing Lab: [address] [phone] [facility] COMPREHEN SIVE METABOLIC PANEL CREATININE [MASS/VOLUM E] IN SERUM OR PLASMA 1.13 mg/dL 0.7 - 1.3 12/24 Specimen Type: PLASMA Comment: No hemolysis noted. Ordering Provider: SOBEIDA PERSON Report Released Date/Time: Dec 17, 2023 11:30 AM Reporting Lab: [address] [address] Performing Lab: [address] [phone] [facility] COMPREHEN SIVE METABOLIC PANEL UREA NITROGEN [MASS/VOLUM E] IN SERUM OR PLASMA 13.2 mg/dL 9.0 - 25.0 12/24 Specimen Type: PLASMA Comment: No hemolysis noted. Ordering Provider: SOBEIDA PERSON Report Released Date/Time: Dec 17, 2023 11:30 AM Reporting Lab: [address] [address] Performing Lab: [facility] [address] [place] [phone] [facility] COMPREHEN SIVE METABOLIC PANEL GLUCOSE [MASS/VOLUM E] IN SERUM OR PLASMA 100 mg/dL 72 - 99 12/24 H Specimen Type: PLASMA Comment: No hemolysis noted. Ordering Provider: SOBEIDA PERSON Report Released Date/Time: Dec 17, 2023 11:30 AM Reporting Lab: [address] [phone] Performing Lab: [facility] [address] [place] [phone] [facility] COMPREHEN SIVE METABOLIC PANEL SODIUM [MOLES/VOLU ME] IN SERUM OR PLASMA 141 meq/L 136 - 145 12/24 Specimen Type: PLASMA Comment: No hemolysis noted. Ordering Provider: SOBEIDA PERSON Report Released Date/Time: Dec 17, 2023 11:30 AM Reporting Lab: [address] [address] Performing Lab: [facility] [address] [place] [phone] [facility] COMPREHEN SIVE METABOLIC PANEL POTASSIUM [MOLES/VOLU ME] IN SERUM OR PLASMA 3.7 meq/L 3.5 - 5 12/24 Specimen Type: PLASMA Comment: No hemolysis noted. Ordering Provider: SOBEIDA PERSON Report Released Date/Time: Dec 17, 2023 11:30 AM Reporting Lab: [facility] [address] [place] [phone] Performing Lab: [facility] [address] [place] [phone] [facility] COMPREHEN SIVE METABOLIC PANEL CHLORIDE [MOLES/VOLU ME] IN SERUM OR PLASMA 109 meq/L 98 - 107 12/24 H Specimen Type: PLASMA Comment: No hemolysis noted. Ordering Provider: SOBEIDA PERSON Report Released Date/Time: Dec 17, 2023 11:30 AM Reporting Lab: [address] [phone] Performing Lab: [facility] [address] [place] [phone] [facility] COMPREHEN SIVE METABOLIC PANEL CARBON DIOXIDE, TOTAL [MOLES/VOLU ME] IN SERUM OR PLASMA 20 meq/L 22 - 31 12/24 L Specimen Type: PLASMA Comment: No hemolysis noted. Ordering Provider: SOBEIDA PERSON Report Released Date/Time: Dec 17, 2023 11:30 AM Reporting Lab: [facility] [address] [place] [phone] Performing Lab: [facility] [address] [place] [phone] [facility] COMPREHEN SIVE METABOLIC PANEL CALCIUM [MASS/VOLUM E] IN SERUM OR PLASMA 9.0 mg/dL 8.4 - 10.4 12/24 Specimen Type: PLASMA Comment: No hemolysis noted. Ordering Provider: SOBEIDA PERSON Report Released Date/Time: Dec 17, 2023 11:30 AM Reporting Lab: [facility] [address] [place] [phone] Performing Lab: [facility] [address] [facility] [phone] [facility] COMPREHEN SIVE METABOLIC PANEL PROTEIN [MASS/VOLUM E] IN SERUM OR PLASMA 7.1 g/dL 6 - 8.6 12/24 Specimen Type: PLASMA Comment: No hemolysis noted. Ordering Provider: SOBEIDA PERSON Report Released Date/Time: Dec 17, 2023 11:30 AM Reporting Lab: [facility] [address] [place] [phone] Performing Lab: [address] [phone] [facility] COMPREHEN SIVE METABOLIC PANEL ALBUMIN [MASS/VOLUM E] IN SERUM OR PLASMA 4.4 g/dL 3.4 - 5 12/24 Specimen Type: PLASMA Comment: No hemolysis noted. Ordering Provider: SOBEIDA PERSON Report Released Date/Time: Dec 17, 2023 11:30 AM Reporting Lab: [address] [phone] Performing Lab: [address] [phone] [facility] COMPREHEN SIVE METABOLIC PANEL BILIRUBIN.T OTAL [MASS/VOLUM E] IN SERUM OR PLASMA 0.6 mg/dL 0.2 - 1.2 12/24 Specimen Type: PLASMA Comment: No hemolysis noted. Ordering Provider: SOBEIDA PERSON Report Released Date/Time: Dec 17, 2023 11:30 AM Reporting Lab: [facility] [address] [place] [phone] Performing Lab: [address] [phone] [facility] COMPREHEN SIVE METABOLIC PANEL ALKALINE PHOSPHATASE [ENZYMATIC ACTIVITY/VO LUME] IN SERUM OR PLASMA 70 U/L 40 - 150 12/24 Specimen Type: PLASMA Comment: No hemolysis noted. Ordering Provider: SOBEIDA PERSON Report Released Date/Time: Dec 17, 2023 11:30 AM Reporting Lab: [facility] [address] [facility] [address] Performing Lab: [facility] [address] [facility] [address] [facility] COMPREHEN SIVE METABOLIC PANEL ASPARTATE AMINOTRANSF ERASE [ENZYMATIC ACTIVITY/VO LUME] IN SERUM OR PLASMA 13 U/L 5 - 34 12/24 Specimen Type: PLASMA Comment: No hemolysis noted. Ordering Provider: SOBEIDA PERSON Report Released Date/Time: Dec 17, 2023 11:30 AM Reporting Lab: [facility] [address] [place] [phone] Performing Lab: [facility] [address] [place] [phone] [place] [address] COMPREHEN SIVE METABOLIC PANEL ALANINE AMINOTRANSF ERASE [ENZYMATIC ACTIVITY/VO LUME] IN SERUM OR PLASMA 13 U/L 8 - 40 12/24 Specimen Type: PLASMA Comment: No hemolysis noted. Ordering Provider: SOBEIDA PERSON Report Released Date/Time: Dec 17, 2023 11:30 AM Reporting Lab: [facility] [address] [place] [phone] Performing Lab: [facility] [address] [place] [phone] [facility] COMPREHEN SIVE METABOLIC PANEL GLOMERULAR FILTRATION RATE/1.73 SQ M.PREDICTED [VOLUME RATE/AREA] IN SERUM, PLASMA OR BLOOD BY CREATININE- BASED FORMULA (CKD-EPI 2020) 75.8 60 12/24 Specimen Type: PLASMA Comment: No hemolysis noted. Ordering Provider: SOBEIDA PERSON Report Released Date/Time: Dec 17, 2023 11:30 AM Reporting Lab: [facility] [address] [place] [phone] Performing Lab: [facility] [address] [place] [phone] [facility] HGA1C HEMOGLOBIN A1C/HEMOGLO BIN.TOTAL IN BLOOD 5.0 4.0 - 6.0 12/24 Specimen Type: BLOOD No comment entered. Ordering Provider: SOBEIDA PERSON Report Released Date/Time: Dec 17, 2023 11:30 AM Reporting Lab: [facility] [address] [place] [phone] Performing Lab: [facility] [address] [place] [phone] [facility] LIPID PANEL (STL) CHOLESTEROL [MASS/VOLUM E] IN SERUM OR PLASMA 219 mg/dL 0 - 200 12/24 H Specimen Type: PLASMA Comment: No hemolysis noted. Ordering Provider: SOBEIDA PERSON Report Released Date/Time: Dec 17, 2023 11:30 AM Reporting Lab: [facility] [address] [place] [phone] Performing Lab: [facility] [address] [place] [phone] [facility] LIPID PANEL (STL) TRIGLYCERID E [MASS/VOLUM E] IN SERUM OR PLASMA 118 mg/dL 0 - 150 12/24 Specimen Type: PLASMA Comment: No hemolysis noted. Ordering Provider: SOBEIDA PERSON Report Released Date/Time: Dec 17, 2023 11:30 AM Reporting Lab: [facility] [address] [place] [phone] Performing Lab: [facility] [address] [place] [phone] [facility] LIPID PANEL (L) CHOLESTEROL IN LDL [MASS/VOLUM E] IN SERUM OR PLASMA BY CALCULATION 144 mg/dL 12/24 Specimen Type: PLASMA Comment: No hemolysis noted. Ordering Provider: SOBEIDA PERSON Report Released Date/Time: Dec 17, 2023 11:30 AM Reporting Lab: [facility] [address] [place] [phone] Performing Lab: [facility] [address] [place] [phone] [facility] LIPID PANEL (STL) CHOLESTEROL IN HDL [MASS/VOLUM E] IN SERUM OR PLASMA 51 mg/dL 40 12/24 Specimen Type: PLASMA Comment: No hemolysis noted. Ordering Provider: SOBEIDA PERSON Report Released Date/Time: Dec 17, 2023 11:30 AM Reporting Lab: [address] [phone] Performing Lab: [address] [phone] [place] [address] PROST. SPECIFIC AG.(PB-ST L) PROSTATE SPECIFIC AG [...] Dec 17, 2023 11:30 AM Reporting Lab: [address] [address] Performing Lab: [address] [phone] [place] [address] URINALYSI S (STL) COLOR OF URINE Light- Yellow 12/15 Specimen Type: URINE No comment entered. Ordering Provider: SOBEIDA PERSON Report Released Date/Time: Oct 12, 2022 09:38 AM Reporting Lab: [address] [address] Performing Lab: [address] [phone] [place] [address] URINALYSI S (STL) BILIRUBIN.T OTAL [PRESENCE] IN URINE BY TEST STRIP Negati vemg/d L 12/15 Specimen Type: URINE No comment entered. Ordering Provider: SOBEIDA PERSON Report Released Date/Time: Oct 12, 2022 09:38 AM Reporting Lab: [address] [address] Performing Lab: [address] [address] [facility] URINALYSI S (STL) PH OF URINE BY TEST STRIP 6.5 5.0 - 8.0 12/15 Specimen Type: URINE No comment entered. Ordering Provider: SOBEIDA PERSON Report Released Date/Time: Oct 12, 2022 09:38 AM Reporting Lab: [facility] [address] [place] [phone] Performing Lab: [address] [phone] [place] [address] URINALYSI S (STL) APPEARANCE OF URINE Clear 12/15 Specimen Type: URINE No comment entered. Ordering Provider: SOBEIDA PERSON Report Released Date/Time: Oct 12, 2022 09:38 AM Reporting Lab: [address] [address] Performing Lab: [address] [phone] [place] [address] URINALYSI S (STL) NITRITE [PRESENCE] IN URINE BY TEST STRIP Negati vemg/d L 12/15 Specimen Type: URINE No comment entered. Ordering Provider: SOBEIDA PERSON Report Released Date/Time: Oct 12, 2022 09:38 AM Reporting Lab: [facility] [address] [place] [phone] Performing Lab: [facility] [address] [place] [phone] [facility] URINALYSI S (STL) GLUCOSE [MASS/VOLUM E] IN URINE BY TEST STRIP Normal mg/dL 12/15 Specimen Type: URINE No comment entered. Ordering Provider: SOBEIDA PERSON Report Released Date/Time: Oct 12, 2022 09:38 AM Reporting Lab: [facility] [address] [place] [phone] Performing Lab: [address] [phone] [facility] URINALYSI S (STL) PROTEIN [MASS/VOLUM E] IN URINE BY TEST STRIP Negati vemg/d L - 20 12/15 Specimen Type: URINE No comment entered. Ordering Provider: SOBEIDA PERSON Report Released Date/Time: Oct 12, 2022 09:38 AM Reporting Lab: [facility] [address] [place], [place] [phone] Performing Lab: [facility] [address] [place] [phone] [facility] URINALYSI S (STL) URN.UROBILI NOGEN Normal mg/dL 12/15 Specimen Type: URINE No comment entered. Ordering Provider: SOBEIDA PERSON Report Released Date/Time: Oct 12, 2022 09:38 AM Reporting Lab: [place] [phone] Performing Lab: [place] [phone] URINALYSI S (STL) HEMOGLOBIN [MASS/VOLUM E] IN URINE BY TEST STRIP Negati vemg/d L 12/15 Specimen Type: URINE No comment entered. Ordering Provider: SOBEIDA PERSON Report Released Date/Time: Oct 12, 2022 09:38 AM Reporting Lab: [facility] [address] [place] [phone] Performing Lab: [facility] [address] [place] [phone] [place] [address] URINALYSI S (STL) KETONES [MASS/VOLUM E] IN URINE BY TEST STRIP Negati vemg/d L 12/15 Specimen Type: URINE No comment entered. Ordering Provider: SOBEIDA PERSON Report Released Date/Time: Oct 12, 2022 09:38 AM Reporting Lab: [facility] [address] [place], [place] [phone] Performing Lab: [facility] [address] [place] [phone] [place] [address] URINALYSI S (STL) URN.LEUK.ES T. Negati vemg/d L 12/15 Specimen Type: URINE No comment entered. Ordering Provider: SOBEIDA PERSON Report Released Date/Time: Oct 12, 2022 09:38 AM Reporting Lab: [address] [address] Performing Lab: [address] [phone] [facility] URINALYSI S (STL) SPECIFIC GRAVITY OF URINE 1.015 1.005 - 1.029 12/15 Specimen Type: URINE No comment entered. Ordering Provider: SOBEIDA PERSON Report Released Date/Time: Oct 12, 2022 09:38 AM Reporting Lab: [address] [address] Performing Lab: [address] [phone] [place] [address] PROST. SPECIFIC AG.(PB-ST L) PROSTATE SPECIFIC AG [...] Oct 12, 2022 09:38 AM Reporting Lab: [address] [address] Performing Lab: [address] [address] [facility] HGA1C HEMOGLOBIN A1C/HEMOGLO BIN.TOTAL IN BLOOD 4.8 4.0 - 6.0 10/10 Specimen Type: BLOOD Comment: No hemolysis noted. Ordering Provider: SOBEIDA PERSON Report Released Date/Time: Oct 04, 2022 02:00 PM Reporting Lab: [address] [address] Performing Lab: [address] [address] [facility] LIPID PANEL (STL) CHOLESTEROL [MASS/VOLUM E] IN SERUM OR PLASMA 215 mg/dL 0 - 200 10/10 H Specimen Type: PLASMA Comment: No hemolysis noted. Ordering Provider: SOBEIDA PERSON Report Released Date/Time: Oct 04, 2022 02:00 PM Reporting Lab: [address] [address] Performing Lab: [address] [address] [facility] LIPID PANEL (STL) TRIGLYCERID E [MASS/VOLUM E] IN SERUM OR PLASMA 85 mg/dL 0 - 150 10/10 Specimen Type: PLASMA Comment: No hemolysis noted. Ordering Provider: SOBEIDA PERSON Report Released Date/Time: Oct 04, 2022 02:00 PM Reporting Lab: [address] [address] Performing Lab: [address] [address] [facility] LIPID PANEL (STL) CHOLESTEROL IN LDL [MASS/VOLUM E] IN SERUM OR PLASMA BY CALCULATION 148 mg/dL 10/10 Specimen Type: PLASMA Comment: No hemolysis noted. Ordering Provider: SOBEIDA PERSON Report Released Date/Time: Oct 04, 2022 02:00 PM Reporting Lab: [address] [address] Performing Lab: [address] [address] [facility] LIPID PANEL (STL) CHOLESTEROL IN HDL [MASS/VOLUM E] IN SERUM OR PLASMA 50 mg/dL 10/10 Specimen Type: PLASMA Comment: No hemolysis noted. Ordering Provider: SOBEIDA PERSON Report Released Date/Time: Oct 04, 2022 02:00 PM Reporting Lab: [address] [address] Performing Lab: [address] [address] [facility] Vital Signs Combined list of inpatient and outpatient Vital Signs from Department of [facility] and Veterans Affairs, ranging from 12 months to all on record, depending upon the facility. Vital Sign Value Date Comments Source SYSTOLIC BLOOD PRESSURE 166 12/25/19 13:20:55 [facility] DIASTOLIC BLOOD PRESSURE 93 024 13:20:55 [facility] PULSE OXIMETRY 95 12/25/2023 13:20:55 [facility] WEIGHT 161.2 12/25/2023 13:20:55 [facility] BMI 25 kg/m2 12/25/2023 13:20:55 [facility] PAIN 0 12/25/2023 13:20:55 [facility] HEIGHT 67 12/25/2023 13:20:55 [facility] TEMPERATURE 98 12/25/2023 13:20:55 [facility] PULSE 63 12/25/2023 13:20:55 [facility] RESPIRATION 16 12/25/2023 13:20:55 [facility] Encounters Combined list of: 1) Encounters from Department of Veterans Affairs facilities going backup to the last 18 months, not all [place] inpatient encounters are included; 2) Encounters from the Department of [facility] facilities going backup to 280 months. Location Location Details Encounter Type Encounter Number Reason For Visit Attending Provider ADM Date DC Date Status Disposition Source [facility] OFFICE O/P EST MOD 30-39 MIN [id number] Diagnos is: ICD-10- CM F32.A Depress ion, unspeci fied SINA DOWNS JR 11/23 [facility] HC PRO PHONE CALL 5-10 MIN [id number] Diagnos is: ICD-10- CM Z59.811 Housing instabi lity, housed, with risk of homeles sness KEREN MEEKS L 11/[address] [facility] PROGRAM INTAKE ASSESSMENT [id number] Diagnos is: ICD-10- CM Z59.811 Housing instabi lity, housed, with risk of homeles sness NAJMA,REJI CENT 12/01 [facility] PROGRAM INTAKE ASSESSMENT [id number] Diagnos is: ICD-10- CM Z59.811 Housing gerri aly, housed, with risk of homeles sness NAJMA,REJI CENT 12/01 [facility] HC PRO PHONE CALL 21-30 MIN [id number] Diagnos is: ICD-10- CM F32.A Depress ion, unspeci fied CUCOCA THRYN 12/06 [facility] Outpatient Encounter [id number] NAYA,SOBEIDA D 12/12 [facility] Outpatient Encounter [id number] NAYA,SOBEIDA D 12/13 [facility] Outpatient Encounter [id number] Diagnos is: ICD-10- CM F32.A Depress ion, unspeci fied NAYA,SOBEIDA D 12/13 [facility] HC PRO PHONE CALL 21-30 MIN [id number] Diagnos is: ICD-10- CM Z71.9 [employer] ing, unspeci fied ZAIN ALSTON 12/14 [facility] Outpatient Encounter [id number] ZAIN ALSTON 12/18 [facility] HC PRO PHONE CALL 5-10 MIN [id number] Diagnos is: ICD-10- CM F32.A Depress ion, unspeci fied IVANIA HENSLEY 12/19 [facility] Outpatient Encounter [id number] 12/19 [facility] Outpatient Encounter [id number] 12/21 [facility] HC PRO PHONE CALL 11-20 MIN [id number] Diagnos is: ICD-10- CM F32.A Depress ion, unspeci fied CUCO,CA THRYN 12/27 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 HC PRO PHONE CALL 5-10 MIN [id number] Diagnos is: ICD-10- CM Z59.00 Homeles sness unspeci fiKEREN Love 01/[address] [facility] Outpatient Encounter [id number] 01/18 [facility] Outpatient Encounter [id number] SOBEIDA PERSON 01/31 [facility] OFFICE O/P EST MOD 30-39 MIN [id number] Diagnos is: ICD-10- CM F32.A Depress ion, unspeci SINA Edmond DONATO M 02/05 [facility] IMMUNIZATI ON ADMIN [id number] Diagnos is: ICD-10- CM Z23 Encount er for immuniz ation LIZZY DUVALL 02/05 [facility] Outpatient Encounter [id number] 10/10 [facility] Outpatient Encounter [id number] SOBEIDA PERSON 10/13 [facility] Outpatient Encounter [id number] 10/19 [facility] Outpatient Encounter [id number] 10/25 [facility] Outpatient Encounter [id number] SOBEIDA PERSON 10/29 [facility] Outpatient Encounter [id number] 11/05 [facility] Outpatient Encounter [id number] 11/05 [facility] Outpatient Encounter [id number] SOBEIDA PERSON 12/16 [facility] Outpatient Encounter [id number] 12/24 [facility] Outpatient Encounter [id number] 12/24 [facility] OFFICE O/P EST MOD 30 MIN [id number] Diagnos is: ICD-10- CM F32.A Depress ion, unspeci fied SOBEIDA PERSON 12/24 [facility] PSYTX CRISIS INITIAL 60 MIN [id number] Diagnos is: ICD-10- CM R45.851 Suicida l ideaANIA Aden T 12/24 [facility] Outpatient Encounter [id number] SOBEIDA PERSON 12/30 [facility] Outpatient Encounter [id number] SOFI CANADA 01/02 [facility] OFF/OP EST MAY X REQ PHY/QHP [id number] Diagnos is: ICD-10- CM R03.0 Elevate d blood-p ressure reading , w/o diagnos is of htn MARLENE THOMASON 01/03 [facility] OFF/OP EST MAY X REQ PHY/QHP [id number] Diagnos is: ICD-10- CM Z71.9 [employer] ing, unspeci Chichi Brenner 01/20 [facility] Outpatient Encounter [id number] 02/11 [facility] OFFICE O/P EST HI 40 MIN [id number] Diagnos is: ICD-10- CM F32.A Depress ion, unspeci fied TIMOTHYJERALD FrankELISSA 02/12 [facility] Outpatient Encounter [id number] 04/22 [facility] Outpatient Encounter [id number] MARIE E 05/14 [facility] B[facility]S AT THE [facility] Social History Combined list of available smoking, tobacco, and other social history from Department of Defense and Veterans Affairs facilities. Social History Type Response Date Comment Sourc e Tobacco smoking status NHIS VA-TOBACCO NEVER USED 12/25/2023 [facility] History of tobacco use VA-TOBACCO NEVER USED 09/26/2022 [facility] Plan of Care List of future care activities from Department of Veterans Affairs facilities. Additional future care activities may be listed in the Assessment and Plan section. Date/Time Care Activity Care Activity Detail Facili ty 06/23/2024 AMBULATORY - PSYCHIATRY AMBULATORY - PSYC HIATRY [facility]
[2024-05-25] MEDS: LIDOCAINE, EPINEPHRINE, TETRACAINE VISCOUS SOLN 3 ML TOPICAL (20:50)
[2024-05-25 21:00] VITALS: BP 148/88; PULSE 68; RESP 18; TEMP 36.4; O2SAT 99
--- NOTE | 2024-05-25 22:05 | ED_ITS ---
HPI - Animal Bite General Chief Complaint: Animal Bite Stated Complaint: Dog Bite Time Seen by Provider: 05/25/24 19:55 History of Present Illness HPI narrative: 59-year-old male presenting for evaluation of a dog bite. Patient was but by his home dog who is fully vaccinated. Sustained a laceration to the proximal portion of the right base of the thumb and dorsal aspect puncture wound x2 on the right forearm. No active bleeding. Patient's tetanus is already up-to-date, dog is vaccinated for rabies. Patient has similar event over 1 month prior to the dorsum of the right palm. Still has the stitches and requests removal. Patient denies any fever, chills, difficulty with range of motion, no numbness, no discharge or purulence. Was otherwise in his normal state of health. Related Data Allergies Allergy/AdvReac Type Severity Reaction Status Date / Time No Known Allergies Allergy Verified 04/21/24 12:11 Review of Systems Review of Systems: As reviewed above in HPI [facility] Past Medical History Medical History Dysuria HTN (hypertension) Social History Social History Smoking status: Never smoker Substance use: never Do You Feel Safe in your Home?: Yes Lack of Transportation: No Lack of Food: Never True Current Housing: I Have Housing Concerned About Future Housing: YES Difficulty Paying Gas/Electric Bills: YES Difficulty Paying for Meds: No Currently Unemployed: YES Education: High School Diploma/GED Difficulty w/ Childcare or Family Care: No Gender identity (if verbalized by the patient): Male Exam Narrative: GENERAL: [Well-appearing, well-nourished, and in no acute distress.] HEAD: [Normocephalic, atraumatic.] EYES: [PERRLA and EOMI.] ENT: Nares clear, no rhinorrhea or epistaxis. Mucous membranes moist. NECK: Supple. CHEST: [Clear to auscultation. No respiratory distress.] HEART: [Regular rate and rhythm]. No murmur heard. [Normal peripheral pulses.] ABDOMEN: [Soft, nondistended], [nontender], [No rigidity or guarding] EXTREMITIES: There is a 2.5 cm laceration of the proximal right base of thumb region on the radial surface of the hand. No active bleeding, deep structures are intact, there are 2 puncture wounds of the distal right forearm as well the dorsal aspect without any deep tissue involvement. No purulence, no active drainage. No tenderness with palpation. Full range of motion of the thumb and hand. Full range of motion of the wrist. No sensory or motor deficits in the hand or major joints. SKIN: Warm, dry, no rash. NEURO: [No focal deficits]. Alert and oriented [x3.] PSYCH: [Normal mood and affect.] Course Vital Signs Vital signs: Vital Signs Temperature 36.8 C 05/25/24 18:45 Pulse Rate 78 05/25/24 18:45 Respiratory Rate 18 05/25/24 18:45 Blood Pressure 157/99 H 05/25/24 18:45 Pulse Oximetry 99 05/25/24 18:45 Oxygen Delivery Room Air 05/25/24 18:45 Temperature 36.8 C 05/25/24 18:45 Pulse Rate 78 05/25/24 18:45 Respiratory Rate 18 05/25/24 18:45 Blood Pressure 157/99 H 05/25/24 18:45 Pulse Oximetry 99 05/25/24 18:45 Oxygen Delivery Room Air 05/25/24 18:45 Procedures Laceration Laceration 1: Date: 05/25/24 Time: 22:07 Site: hand Side (If applicable): right Size (cm): 2.5 Description: linear Depth: simple, single layer Local Anesthetic: lidocaine 1% Amount of anesthesia used (mL): 5 Pre-repair: wound explored, irrigated extensively (250cc sterile saline) and deep structures intact ====== Skin Level ====== Skin layer closed with: nylon (Loose approximation) Size (cm): 5-0 Number of sutures: 3 ====== Subcutaneous Layer ====== ====== Muscle Layer ====== ====== Tendon Layer ====== Dressing: Sterile dressing with bandage applied over top. Laceration 2: Date: 05/25/24 Time: 22:08 Site: hand Side (If applicable): right Size (cm): 0.5 Description: linear Depth: simple, single layer Local Anesthetic: lidocaine 1% Amount of anesthesia used (mL): 1 Pre-repair: wound explored, irrigated and deep structures intact ====== Skin Level ====== Skin layer closed with: nylon Size (cm): 5-0 Number of sutures: 1 ====== Subcutaneous Layer ====== ====== Muscle Layer ====== ====== Tendon Layer ====== Dressing: Dressing applied over top. Laceration 3: Date: 05/25/24 Time: 22:08 Site: hand Side (If applicable): right Size (cm): 0.5 Description: linear Depth: simple, single layer Local Anesthetic: lidocaine 1% Amount of anesthesia used (mL): 1 Pre-repair: wound explored, irrigated and deep structures intact ====== Skin Level ====== Skin layer closed with: nylon Size (cm): 5-0 Number of sutures: 1 Technique: simple, interrupted ====== Subcutaneous Layer ====== ====== Muscle Layer ====== ====== Tendon Layer ====== Dressing: Sterile dressing. MDM - Animal Bite MDM Narrative Medical decision making narrative: 59-year-old male presenting for dog bite to the right hand. He has a linear laceration at the base left thumb and 2 puncture herrera over his distal right forearm. No active bleeding. Deep structures are intact. His dog is up-to-date on vaccines including rabies and himself he is up-to-date on tetanus. He is otherwise well-appearing. Loose approximation was used to approximate the wound of his right hand x3 with good approximation and hemostasis achieved. He is given Augmentin will be sent home with a prescription forward for the next 7 days. Patient was given wound instructions and return precautions as well as instructions to follow-up in 7-10 days for suture removal and wound evaluation. His remaining 1 stage from his previous laceration was removed without difficulty. Patient was comfortable plan safely discharged. Differential Diagnosis Differential diagnosis: Likely bite by animal and dog bite Medical Records Attestation: I reviewed the patient's medical records. Imaging Data Attestation: I personally reviewed and interpreted this imaging study as follows: My impression: Impressions Hand X-Ray 05/25/24 20:11 IMPRESSION: Soft tissue defect and degenerative disease, without acute fracture or dislocation within the right hand, as detailed above. Discharge Plan Discharge Clinical Impression: Dog bite, Puncture wound, Complicated laceration of hand Patient Disposition: Home, Self-Care Condition: Stable Instructions: Antibiotic Form, Animal Bite (ED), Care For Your Stitches (ED), Laceration (ED) Additional Instructions: We have sent her home with 7 days of antibiotics, keep the area clean and dry. Follow-up with regular doctor. Return with 7-10 days for wound check and suture removal. Patient Language: Icelandic Prescriptions: New amoxicillin-pot clavulanate 875-125 mg tablet 1 tablet PO Q12H 7 Days Qty: 14 0RF No Action escitalopram oxalate [Lexapro] 10 mg tablet 10 mg PO DAILY Qty: 90 2RF omeprazole 20 mg capsule,delayed release(DR/EC) 20 mg PO DAILY Qty: 90 2RF metoprolol succinate 100 mg tablet extended release 24 hr See Rx Instructions .ROUTE .COMPLEX Qty: 180 2RF Dose Instruction: Take 1 tablet by mouth twice daily Rx Instructions: Take 1 tablet by mouth twice daily lisinopril 40 mg tablet See Rx Instructions .ROUTE .COMPLEX Qty: 90 2RF Dose Instruction: Take 1 tablet by mouth twice daily Rx Instructions: Take 1 tablet by mouth daily acetaminophen 500 mg capsule 1,000 mg PO TID PRN (Reason: fever or pain) Qty: 60 0RF ibuprofen 600 mg tablet 600 mg PO TID PRN (Reason: fever or pain) Qty: 30 0RF amoxicillin-pot clavulanate 875-125 mg tablet 1 tablet PO Q12H 7 Days Qty: 14 0RF cholecalciferol (vitamin D3) 1,250 mcg (50,000 unit) capsule 1,250 mcg PO WEEKLY Qty: 12 2RF finasteride 5 mg tablet See Rx Instructions .ROUTE .COMPLEX Qty: 90 2RF Dose Instruction: Take 1 tablet by mouth once daily Rx Instructions: Take 1 tablet by mouth once daily tamsulosin 0.4 mg capsule See Rx Instructions .ROUTE .COMPLEX Qty: 90 2RF Dose Instruction: Take 1 capsule by mouth once daily Rx Instructions: Take 1 capsule by mouth once daily amlodipine 5 mg tablet See Rx Instructions .ROUTE .COMPLEX Qty: 90 2RF Dose Instruction: Take 1 tablet by mouth once daily Rx Instructions: Take 1 tablet by mouth once daily Follow-up/Referrals: Pilo Lackey MD [Primary Care Provider] - Time of Disposition: 22:11
[2024-05-25] MEDS: SULFAMETHOXAZOLE/TRIMETHOPRIM 800/160 MG DS TABLET 1 TAB PO (22:25)
== END 2024-05-25 22:28 | disposition home or self-care (01) ==
PROVIDERS: Emergency Provider Student in an Organized Health Care Education/Training Program; PCP Emergency Medicine
DX: S61.051A Open bite of right thumb without damage to nail, initial encounter (principal); S51.851A Open bite of right forearm, initial encounter; S61.451D Open bite of right hand, subsequent encounter; I10 Essential (primary) hypertension; Z79.899 Other long term (current) drug therapy; W54.0XXA Bitten by dog, initial encounter; W54.0XXD Bitten by dog, subsequent encounter
CPT/HCPCS: 12002; 15853; 73130; 99283; A9270

== ENCOUNTER 2024-06-10 14:25 | Outpatient (CLI) | payer OTHER, SELFPAY ==
[2024-06-10 14:58] LABS: Alanine Aminotransferase 17 U/L (6-50); Albumin Level 4.5 g/dL (3.5-5.1); Alkaline Phosphatase 75 U/L (38-126); Anion Gap 9 mmol/L (4-12); Aspartate Amino Transferase 20 U/L (17-59); Bilirubin,Total 0.6 mg/dL (0.2-1.3); Blood Urea Nitrogen 19 mg/dL (9-20); Carbon Dioxide 25 mmol/L (22-30); Chloride 106 mmol/L (98-107); Cholesterol 200 mg/dL (0-200); Estimated Glomerular Filt Rate > 60; Glucose 116 mg/dL (65-110); HDL Direct 60 mg/dL; Potassium 4.1 mmol/L (3.4-5.0); Sodium 140 mmol/L (137-145); Triglycerides 121 mg/dL (<150)
[2024-06-10 15:10] LABS: LDL Cholesterol Direct 99 mg/dL
[2024-06-10 15:32] LABS: Prostate Specific Antigen 2.1 ng/mL (< OR = 4.0)
[2024-06-10 15:37] LABS: Vitamin D 25 Hydroxy 40.7 ng/mL
--- OUTSIDE RECORDS SUMMARY | 2024-06-10 16:20 | XMS_ITS | Continuity of Care Document ---
Author Name [facility] Organization [facility] Care Team Providers Care Mold Stamper Name Role Phone [facility] Unavailable Unavailable Problems Combined list of problems from Department of [facility] and [facility] Affairs facilities. It does not include entries that were removed or entered in error. Problem Status Onset Date Problem Type Date of Resolution Comments Source Depression Active Condition [facility] Elevated PSA Active Condition [facility] Headache Active Condition [facility] Hyperlipidemia Active Condition [facility] Diagnosis: ICD-10-CM F32.A Depression, unspecified Active Diagnosis [facility] Diagnosis: ICD-10-CM Z71.9 Counseling, unspecified Active Diagnosis [facility] Diagnosis: ICD-10-CM R03.0 Elevated blood-pressure reading, w/o diagnosis of htn Active Diagnosis [facility] Diagnosis: ICD-10-CM R45.851 Suicidal ideations Active Diagnosis [facility] Diagnosis: ICD-10-CM Z23 Encounter for immunization Active Diagnosis [facility] Diagnosis: ICD-10-CM Z59.00 Homelessness unspecified Active Diagnosis [facility] Diagnosis: ICD-10-CM Z71.89 Other specified counseling Active Diagnosis [facility] Diagnosis: ICD-10-CM Z59.811 Housing instability, housed, with risk of homelessness Active Diagnosis [facility] Medications Combined list of outpatient medications from Department of [facility] and [facility] facilities.Medications provided include 1) outpatient medications from the last 15 months, and 2) patient-reported medications. Medication Details Route Status Patient Instructions Prescription Expires Prescription Number Last Dispense Date Ordering Provider Order Date Order Qty Source CHOLECALCIF CARMEN 25MCG (1,000UNIT) TAB TAKE ONE TABLET BY MOUTH ONCE A DAY ORAL ACTIVE NAYA,ESSENCE A D 2022 [facility] ESCITALOPRA M OXALATE 10MG TAB TAKE ONE-HALF TABLET BY MOUTH ONCE A DAY FOR 14 DAYS, THEN TAKE ONE TABLET ONCE A DAY FOR 46 DAYS ORAL ACTIVE 02/13/2025 [id number] JERALD RAYGOZA 2023 53 [facility] N Immunizations Combined list of available immunizations from the Department of Defense and Veterans Affairs facilities. Immunization Series Date Given Administered By Site Reaction Lot Number CVX Code Drug Deputy General Counsel Status Comments Source INFLUENZA, SPLIT VIRUS, TRIVALENT, PF 2023 PEREZ FOSTER A LEFT DELTO ID [id number] 140 complet ed [facility] COVID-19 (PFIZER), MRNA, LNP-S, PF, NORTH-SUCROSE, 30 MCG/0.3 ML (AGES 12+ YEARS) 2023 PEERZ FOSTER A RIGHT DELTO ID [id number] complet ed [facility] INFLUENZA, INJECTABLE, QUADRIVALENT, PRESERVATIVE FREE 2022 GIN DUVALL A LEFT DELTO ID [id number] 150 complet ed [facility] TDAP 2022 PEREZ FOSTER A LEFT DELTO ID [id number] 115 complet ed [facility] Results Combined list of recent chemistry, [...] Dec 25, 2023 01:57 PM Reporting Lab: [facility] [address] [facility] [address] Performing Lab: [facility] [address] [place] [phone] [facility] URINALYSI S W/ CX REFLEX (STL-PB) BILIRUBIN.T OTAL [PRESENCE] IN URINE BY TEST STRIP Negati vemg/d L 12/24 Specimen Type: URINE No comment entered. Ordering Provider: SOBEIDA PERSON Report Released Date/Time: Dec 25, 2023 01:57 PM Reporting Lab: [facility] [address] [place] [phone] Performing Lab: [address] [phone] [place] [address] URINALYSI S W/ CX REFLEX (STL-PB) PH OF URINE BY TEST STRIP 5.5 5.0 - 8.0 12/24 Specimen Type: URINE No comment entered. Ordering Provider: SOBEIDA PERSON Report Released Date/Time: Dec 25, 2023 01:57 PM Reporting Lab: [address] [phone] Performing Lab: [address] [phone] URINALYSI S W/ CX REFLEX (STL-PB) LEUKOCYTES [#/AREA] IN URINE SEDIMENT BY MICROSCOPY HIGH POWER FIELD 1 /[HPF] 0 - 5 12/24 Specimen Type: URINE No comment entered. Ordering Provider: SOBEIDA PERSON Report Released Date/Time: Dec 25, 2023 01:57 PM Reporting Lab: [address] [address] Performing Lab: [address] [phone] [facility] URINALYSI S W/ CX REFLEX (STL-PB) APPEARANCE OF URINE Clear 12/24 Specimen Type: URINE No comment entered. Ordering Provider: SOBEIDA PERSON Report Released Date/Time: Dec 25, 2023 01:57 PM Reporting Lab: [address] [phone] Performing Lab: [address] [phone] [place] [address] URINALYSI S W/ CX REFLEX (STL-PB) NITRITE [PRESENCE] IN URINE BY TEST STRIP Negati vemg/d L 12/24 Specimen Type: URINE No comment entered. Ordering Provider: SOBEIDA PERSON Report Released Date/Time: Dec 25, 2023 01:57 PM Reporting Lab: [address] [phone] Performing Lab: [address] [phone] [place] [address] URINALYSI S W/ CX REFLEX (STL-PB) MUCUS [PRESENCE] IN URINE SEDIMENT BY LIGHT MICROSCOPY RARE/[ LPF] 12/24 Specimen Type: URINE No comment entered. Ordering Provider: SOBEIDA PERSON Report Released Date/Time: Dec 25, 2023 01:57 PM Reporting Lab: [place] [phone] Performing Lab: [place] [phone] [place] [address] URINALYSI S W/ CX REFLEX (STL-PB) GLUCOSE [MASS/VOLUM E] IN URINE BY TEST STRIP Normal mg/dL 12/24 Specimen Type: URINE No comment entered. Ordering Provider: SOBEIDA PERSON Report Released Date/Time: Dec 25, 2023 01:57 PM Reporting Lab: [address] [address] Performing Lab: [address] [phone] [place] [address] URINALYSI S W/ CX REFLEX (STL-PB) PROTEIN [MASS/VOLUM E] IN URINE BY TEST STRIP 20 mg/dL - 20 12/24 H Specimen Type: URINE No comment entered. Ordering Provider: SOBEIDA PERSON Report Released Date/Time: Dec 25, 2023 01:57 PM Reporting Lab: [address] [address] Performing Lab: [address] [phone] [place] [address] URINALYSI S W/ CX REFLEX (STL-PB) URN.UROBILI NOGEN Normal mg/dL 12/24 Specimen Type: URINE No comment entered. Ordering Provider: SOBEIDA PERSON Report Released Date/Time: Dec 25, 2023 01:57 PM Reporting Lab: [facility] [address] [place], [place] [phone] Performing Lab: [facility] [address] [place] [phone] [place] [address] URINALYSI S W/ CX REFLEX (STL-PB) HEMOGLOBIN [MASS/VOLUM E] IN URINE BY TEST STRIP Negati vemg/d L 12/24 Specimen Type: URINE No comment entered. Ordering Provider: SOBEIDA PERSON Report Released Date/Time: Dec 25, 2023 01:57 PM Reporting Lab: [place] [phone] Performing Lab: [place] [phone] [place] [address] URINALYSI S W/ CX REFLEX (STL-PB) KETONES [MASS/VOLUM E] IN URINE BY TEST STRIP Negati vemg/d L 12/24 Specimen Type: URINE No comment entered. Ordering Provider: SOBEIDA PERSON Report Released Date/Time: Dec 25, 2023 01:57 PM Reporting Lab: [address] [phone] Performing Lab: [address] [phone] [place] [address] URINALYSI S W/ CX REFLEX (STL-PB) URN.LEUK.ES T. Negati vemg/d L 12/24 Specimen Type: URINE No comment entered. Ordering Provider: SOBEIDA PERSON Report Released Date/Time: Dec 25, 2023 01:57 PM Reporting Lab: [address] [address] Performing Lab: [address] [phone] [facility] URINALYSI S W/ CX REFLEX (STL-PB) SPECIFIC GRAVITY OF URINE 1.017 1.005 - 1.029 12/24 Specimen Type: URINE No comment entered. Ordering Provider: SOBEIDA PERSON Report Released Date/Time: Dec 25, 2023 01:57 PM Reporting Lab: [facility] [address] [place] [phone] Performing Lab: [address] [address] [facility] COMPREHEN SIVE METABOLIC PANEL CREATININE [MASS/VOLUM E] IN SERUM OR PLASMA 1.13 mg/dL 0.7 - 1.3 12/24 Specimen Type: PLASMA Comment: No hemolysis noted. Ordering Provider: SOBEIDA PERSON Report Released Date/Time: Dec 17, 2023 11:30 AM Reporting Lab: [address] [phone] Performing Lab: [address] [phone] [facility] COMPREHEN SIVE METABOLIC PANEL UREA NITROGEN [MASS/VOLUM E] IN SERUM OR PLASMA 13.2 mg/dL 9.0 - 25.0 12/24 Specimen Type: PLASMA Comment: No hemolysis noted. Ordering Provider: SOBEIDA PERSON Report Released Date/Time: Dec 17, 2023 11:30 AM Reporting Lab: [address] [phone] Performing Lab: [address] [phone] [facility] COMPREHEN SIVE METABOLIC PANEL GLUCOSE [MASS/VOLUM E] IN SERUM OR PLASMA 100 mg/dL 72 - 99 12/24 H Specimen Type: PLASMA Comment: No hemolysis noted. Ordering Provider: SOBEIDA PERSON Report Released Date/Time: Dec 17, 2023 11:30 AM Reporting Lab: [address] [phone] Performing Lab: [address] [address] [facility] COMPREHEN SIVE METABOLIC PANEL SODIUM [MOLES/VOLU ME] IN SERUM OR PLASMA 141 meq/L 136 - 145 12/24 Specimen Type: PLASMA Comment: No hemolysis noted. Ordering Provider: SOBEIDA PERSON Report Released Date/Time: Dec 17, 2023 11:30 AM Reporting Lab: [facility] [address] [place] [phone] Performing Lab: [facility] [address] [place] [phone] [facility] COMPREHEN SIVE METABOLIC PANEL POTASSIUM [MOLES/VOLU ME] IN SERUM OR PLASMA 3.7 meq/L 3.5 - 5 12/24 Specimen Type: PLASMA Comment: No hemolysis noted. Ordering Provider: SOBEIDA PERSON Report Released Date/Time: Dec 17, 2023 11:30 AM Reporting Lab: [address] [phone] Performing Lab: [address] [phone] [facility] COMPREHEN SIVE METABOLIC PANEL CHLORIDE [MOLES/VOLU ME] IN SERUM OR PLASMA 109 meq/L 98 - 107 12/24 H Specimen Type: PLASMA Comment: No hemolysis noted. Ordering Provider: SOBEIDA PERSON Report Released Date/Time: Dec 17, 2023 11:30 AM Reporting Lab: [address] [phone] Performing Lab: [facility] [address] [place] [phone] [facility] COMPREHEN SIVE METABOLIC PANEL CARBON DIOXIDE, TOTAL [MOLES/VOLU ME] IN SERUM OR PLASMA 20 meq/L 22 - 31 12/24 L Specimen Type: PLASMA Comment: No hemolysis noted. Ordering Provider: SOBEIDA PERSON Report Released Date/Time: Dec 17, 2023 11:30 AM Reporting Lab: [facility] [address] [place] [phone] Performing Lab: [facility] [address] [place] [phone] COMPREHEN SIVE METABOLIC PANEL CALCIUM [MASS/VOLUM E] IN SERUM OR PLASMA 9.0 mg/dL 8.4 - 10.4 12/24 Specimen Type: PLASMA Comment: No hemolysis noted. Ordering Provider: SOBEIDA PERSON Report Released Date/Time: Dec 17, 2023 11:30 AM Reporting Lab: [place] [phone] Performing Lab: [address] [phone] [place] [address] COMPREHEN SIVE METABOLIC PANEL PROTEIN [MASS/VOLUM E] IN SERUM OR PLASMA 7.1 g/dL 6 - 8.6 12/24 Specimen Type: PLASMA Comment: No hemolysis noted. Ordering Provider: SOBEIDA PERSON Report Released Date/Time: Dec 17, 2023 11:30 AM Reporting Lab: [place] [phone] Performing Lab: [address] [phone] [facility] COMPREHEN SIVE METABOLIC PANEL ALBUMIN [MASS/VOLUM E] IN SERUM OR PLASMA 4.4 g/dL 3.4 - 5 12/24 Specimen Type: PLASMA Comment: No hemolysis noted. Ordering Provider: SOBEIDA PERSON Report Released Date/Time: Dec 17, 2023 11:30 AM Reporting Lab: [address] [address] Performing Lab: [address] [phone] [facility] COMPREHEN SIVE METABOLIC PANEL BILIRUBIN.T OTAL [MASS/VOLUM E] IN SERUM OR PLASMA 0.6 mg/dL 0.2 - 1.2 12/24 Specimen Type: PLASMA Comment: No hemolysis noted. Ordering Provider: SOBEIDA PERSON Report Released Date/Time: Dec 17, 2023 11:30 AM Reporting Lab: [address] [phone] Performing Lab: [facility] [address] [phone] [facility] COMPREHEN SIVE METABOLIC PANEL ALKALINE PHOSPHATASE [ENZYMATIC ACTIVITY/VO LUME] IN SERUM OR PLASMA 70 U/L 40 - 150 12/24 Specimen Type: PLASMA Comment: No hemolysis noted. Ordering Provider: SOBEIDA PERSON Report Released Date/Time: Dec 17, 2023 11:30 AM Reporting Lab: [facility] [address] [place] [phone] Performing Lab: [facility] [address] [place] [phone] [facility] COMPREHEN SIVE METABOLIC PANEL ASPARTATE AMINOTRANSF ERASE [ENZYMATIC ACTIVITY/VO LUME] IN SERUM OR PLASMA 13 U/L 5 - 34 12/24 Specimen Type: PLASMA Comment: No hemolysis noted. Ordering Provider: SOBEIDA PERSON Report Released Date/Time: Dec 17, 2023 11:30 AM Reporting Lab: [facility] [address] [place] [phone] Performing Lab: [facility] [address] [place] [phone] [facility] COMPREHEN SIVE METABOLIC PANEL ALANINE AMINOTRANSF ERASE [ENZYMATIC ACTIVITY/VO LUME] IN SERUM OR PLASMA 13 U/L 8 - 40 12/24 Specimen Type: PLASMA Comment: No hemolysis noted. Ordering Provider: SOBEIDA PERSON Report Released Date/Time: Dec 17, 2023 11:30 AM Reporting Lab: [facility] [address] [place] [phone] Performing Lab: [facility] [address] [place] [phone] [facility] COMPREHEN SIVE METABOLIC PANEL GLOMERULAR FILTRATION RATE/1.73 SQ M.PREDICTED [VOLUME RATE/AREA] IN SERUM, PLASMA OR BLOOD BY CREATININE- BASED FORMULA (CKD-EPI 2020) 75.8 60 12/24 Specimen Type: PLASMA Comment: No hemolysis noted. Ordering Provider: SOBEIDA PERSON Report Released Date/Time: Dec 17, 2023 11:30 AM Reporting Lab: [facility] [address] [place] [phone] Performing Lab: [facility] [address] [place] [phone] [facility] LIPID PANEL (STL) CHOLESTEROL [MASS/VOLUM E] IN SERUM OR PLASMA 219 mg/dL 0 - 200 12/24 H Specimen Type: PLASMA Comment: No hemolysis noted. Ordering Provider: SOBEIDA PERSON Report Released Date/Time: Dec 17, 2023 11:30 AM Reporting Lab: [facility] [address] [place] [phone] Performing Lab: [address] [phone] [facility] LIPID PANEL (STL) TRIGLYCERID E [MASS/VOLUM E] IN SERUM OR PLASMA 118 mg/dL 0 - 150 12/24 Specimen Type: PLASMA Comment: No hemolysis noted. Ordering Provider: SOBEIDA PERSON Report Released Date/Time: Dec 17, 2023 11:30 AM Reporting Lab: [facility] [address] [place] [phone] Performing Lab: [facility] [address] [place] [phone] [facility] LIPID PANEL (L) CHOLESTEROL IN LDL [MASS/VOLUM E] IN SERUM OR PLASMA BY CALCULATION 144 mg/dL 12/24 Specimen Type: PLASMA Comment: No hemolysis noted. Ordering Provider: SOBEIDA PERSON Report Released Date/Time: Dec 17, 2023 11:30 AM Reporting Lab: [facility] [address] [place] [phone] Performing Lab: [address] [phone] [facility] LIPID PANEL (STL) CHOLESTEROL IN HDL [MASS/VOLUM E] IN SERUM OR PLASMA 51 mg/dL 40 12/24 Specimen Type: PLASMA Comment: No hemolysis noted. Ordering Provider: SOBEIDA PERSON Report Released Date/Time: Dec 17, 2023 11:30 AM Reporting Lab: [facility] [address] [place] [phone] Performing Lab: [facility] [address] [place] [phone] [facility] CBC LEUKOCYTES [#/VOLUME] IN BLOOD BY AUTOMATED COUNT 7.7 10*3/u L 3.6 - 11.2 12/24 Specimen Type: BLOOD No comment entered. Ordering Provider: SOBEIDA PERSON Report Released Date/Time: Dec 17, 2023 11:30 AM Reporting Lab: [address] [phone] Performing Lab: [place] [phone] [place] [address] CBC ERYTHROCYTE S [#/VOLUME] IN BLOOD BY AUTOMATED COUNT 4.30 10*6/u L 4.10 - 5.70 12/24 Specimen Type: BLOOD No comment entered. Ordering Provider: SOBEIDA PERSON Report Released Date/Time: Dec 17, 2023 11:30 AM Reporting Lab: [address] [phone] Performing Lab: [address] [phone] [place] [address] CBC HEMOGLOBIN [MASS/VOLUM E] IN BLOOD 13.9 g/dL 13.1 - 16.8 12/24 Specimen Type: BLOOD No comment entered. Ordering Provider: SOBEIDA PERSON Report Released Date/Time: Dec 17, 2023 11:30 AM Reporting Lab: [facility] [address] [place] [phone] Performing Lab: [address] [phone] [place] [address] CBC HEMATOCRIT [VOLUME FRACTION] OF BLOOD 38.8 38.2 - 48.4 12/24 Specimen Type: BLOOD No comment entered. Ordering Provider: SOBEIDA PERSON Report Released Date/Time: Dec 17, 2023 11:30 AM Reporting Lab: [address] [address] Performing Lab: [address] [phone] [facility] CBC MCV [ENTITIC VOLUME] BY AUTOMATED COUNT 90.2 fL 80.0 - 100.0 12/24 Specimen Type: BLOOD No comment entered. Ordering Provider: SOBEIDA PERSON Report Released Date/Time: Dec 17, 2023 11:30 AM Reporting Lab: [address] [phone] Performing Lab: [address] [phone] [place] [address] CBC MCH [ENTITIC MASS] BY AUTOMATED COUNT 32.3 pg 27.0 - 34.0 12/24 Specimen Type: BLOOD No comment entered. Ordering Provider: SOBEIDA PERSON Report Released Date/Time: Dec 17, 2023 11:30 AM Reporting Lab: [address] [phone] Performing Lab: [address] [address] [facility] CBC MCHC [MASS/VOLUM E] BY AUTOMATED COUNT 35.8 g/dL 33.0 - 36.0 12/24 Specimen Type: BLOOD No comment entered. Ordering Provider: SOBEIDA PERSON Report Released Date/Time: Dec 17, 2023 11:30 AM Reporting Lab: [address] [phone] Performing Lab: [address] [phone] [facility] CBC PLATELETS [#/VOLUME] IN BLOOD BY AUTOMATED COUNT 220 10*3/u L 150 - 400 12/24 Specimen Type: BLOOD No comment entered. Ordering Provider: SOBEIDA PERSON Report Released Date/Time: Dec 17, 2023 11:30 AM Reporting Lab: [address] [phone] Performing Lab: [facility] [address] [facility] [address] [phone] [facility] CBC PLATELET MEAN VOLUME [ENTITIC VOLUME] IN BLOOD BY AUTOMATED COUNT 10.4 fL 7.5 - 11.2 12/24 Specimen Type: BLOOD No comment entered. Ordering Provider: SOBEIDA PERSON Report Released Date/Time: Dec 17, 2023 11:30 AM Reporting Lab: [facility] [address] [place] [phone] Performing Lab: [facility] [address] [place] [phone] [facility] CBC ERYTHROCYTE DISTRIBUTIO N WIDTH [RATIO] BY AUTOMATED COUNT 13.4 11.8 - 15.1 12/24 Specimen Type: BLOOD No comment entered. Ordering Provider: SOBEIDA PERSON Report Released Date/Time: Dec 17, 2023 11:30 AM Reporting Lab: [facility] [address] [place] [phone] Performing Lab: [facility] [address] [place] [phone] [facility] CBC LYMPHOCYTES /100 LEUKOCYTES IN BLOOD BY AUTOMATED COUNT 9 12/24 Specimen Type: BLOOD No comment entered. Ordering Provider: SOBEIDA PERSON Report Released Date/Time: Dec 17, 2023 11:30 AM Reporting Lab: [facility] [address] [place] [phone] Performing Lab: [facility] [address] [place] [phone] [facility] CBC MONOCYTES/1 00 LEUKOCYTES IN BLOOD BY AUTOMATED COUNT 5 12/24 Specimen Type: BLOOD No comment entered. Ordering Provider: SOBEIDA PERSON Report Released Date/Time: Dec 17, 2023 11:30 AM Reporting Lab: [facility] [address] [place] [phone] Performing Lab: [facility] [address] [place] [phone] [facility] CBC NEUTROPHILS /100 LEUKOCYTES IN BLOOD BY AUTOMATED COUNT 84 12/24 Specimen Type: BLOOD No comment entered. Ordering Provider: SOBEIDA PERSON Report Released Date/Time: Dec 17, 2023 11:30 AM Reporting Lab: [facility] [address] [facility] [phone] Performing Lab: [facility] [address] [place] [phone] [facility] CBC EOSINOPHILS /100 LEUKOCYTES IN BLOOD BY AUTOMATED COUNT 1 12/24 Specimen Type: BLOOD No comment entered. Ordering Provider: SOBEIDA PERSON Report Released Date/Time: Dec 17, 2023 11:30 AM Reporting Lab: [facility] [address] [place] [phone] Performing Lab: [facility] [address] [place] [address] [phone] [place] [address] CBC BASOPHILS/1 00 LEUKOCYTES IN BLOOD BY AUTOMATED COUNT 1 12/24 Specimen Type: BLOOD No comment entered. Ordering Provider: SOBEIDA PERSON Report Released Date/Time: Dec 17, 2023 11:30 AM Reporting Lab: [facility] [address] [place] [phone] Performing Lab: [facility] [address] [place] [phone] [facility] CBC LYMPHOCYTES [#/VOLUME] IN BLOOD BY AUTOMATED COUNT 0.66 10*3/u L 0.77 - 4.50 12/24 L Specimen Type: BLOOD No comment entered. Ordering Provider: SOBEIDA PERSON Report Released Date/Time: Dec 17, 2023 11:30 AM Reporting Lab: [facility] [address] [place] [phone] Performing Lab: [facility] [address] [place] [phone] [facility] CBC MONOCYTES [#/VOLUME] IN BLOOD BY AUTOMATED COUNT 0.41 10*3/u L 0.19 - 0.80 12/24 Specimen Type: BLOOD No comment entered. Ordering Provider: SOBEIDA PERSON Report Released Date/Time: Dec 17, 2023 11:30 AM Reporting Lab: [facility] [address] [place] [phone] Performing Lab: [facility] [address] [place] [phone] [place] [address] CBC NEUTROPHILS [#/VOLUME] IN BLOOD BY AUTOMATED COUNT 6.47 10*3/u L 2.10 - 8.00 12/24 Specimen Type: BLOOD No comment entered. Ordering Provider: SOBEIDA PERSON Report Released Date/Time: Dec 17, 2023 11:30 AM Reporting Lab: [address] [phone] Performing Lab: [phone] [place] [address] CBC EOSINOPHILS [#/VOLUME] IN BLOOD BY AUTOMATED COUNT 0.05 10*3/u L 0.00 - 0.60 12/24 Specimen Type: BLOOD No comment entered. Ordering Provider: SOBEIDA PERSON Report Released Date/Time: Dec 17, 2023 11:30 AM Reporting Lab: [address] [phone] Performing Lab: [address] [phone] [facility] CBC BASOPHILS [#/VOLUME] IN BLOOD BY AUTOMATED COUNT 0.05 10*3/u L 0.00 - 0.20 12/24 Specimen Type: BLOOD No comment entered. Ordering Provider: SOBEIDA PERSON Report Released Date/Time: Dec 17, 2023 11:30 AM Reporting Lab: [address] [phone] Performing Lab: [address] [phone] [facility] PROST. SPECIFIC AG.(PB-ST L) PROSTATE SPECIFIC AG [...] Dec 17, 2023 11:30 AM Reporting Lab: [address] [address] Performing Lab: [place] [id number] [place] [address] HGA1C HEMOGLOBIN A1C/HEMOGLO BIN.TOTAL IN BLOOD 5.0 4.0 - 6.0 12/24 Specimen Type: BLOOD No comment entered. Ordering Provider: SOBEIDA PERSON Report Released Date/Time: Dec 17, 2023 11:30 AM Reporting Lab: [address] [phone] Performing Lab: [phone] [place] [address] URINALYSI S (STL) COLOR OF URINE Light- Yellow 12/15 Specimen Type: URINE No comment entered. Ordering Provider: SOBEIDA PERSON Report Released Date/Time: Oct 12, 2022 09:38 AM Reporting Lab: [address] [phone] Performing Lab: [address] [address] [facility] URINALYSI S (STL) BILIRUBIN.T OTAL [PRESENCE] IN URINE BY TEST STRIP Negati vemg/d L 12/15 Specimen Type: URINE No comment entered. Ordering Provider: SOBEIDA PERSON Report Released Date/Time: Oct 12, 2022 09:38 AM Reporting Lab: [address] [address] Performing Lab: [address] [phone] [facility] URINALYSI S (STL) PH OF URINE BY TEST STRIP 6.5 5.0 - 8.0 12/15 Specimen Type: URINE No comment entered. Ordering Provider: SOBEIDA PERSON Report Released Date/Time: Oct 12, 2022 09:38 AM Reporting Lab: [facility] [address] [place] [phone] Performing Lab: [phone] [place] [address] URINALYSI S (STL) APPEARANCE OF URINE Clear 12/15 Specimen Type: URINE No comment entered. Ordering Provider: SOBEIDA PERSON Report Released Date/Time: Oct 12, 2022 09:38 AM Reporting Lab: [address] [address] Performing Lab: [address] [phone] [place] [address] URINALYSI S (STL) NITRITE [PRESENCE] IN URINE BY TEST STRIP Negati vemg/d L 12/15 Specimen Type: URINE No comment entered. Ordering Provider: SOBEIDA PERSON Report Released Date/Time: Oct 12, 2022 09:38 AM Reporting Lab: [facility] [address] [place] [phone] Performing Lab: [facility] [address] [place] [phone] [facility] URINALYSI S (STL) GLUCOSE [MASS/VOLUM E] IN URINE BY TEST STRIP Normal mg/dL 12/15 Specimen Type: URINE No comment entered. Ordering Provider: SOBEIDA PERSON Report Released Date/Time: Oct 12, 2022 09:38 AM Reporting Lab: [facility] [address] [place] [phone] Performing Lab: [address] [address] [facility] URINALYSI S (STL) PROTEIN [MASS/VOLUM E] IN URINE BY TEST STRIP Negati vemg/d L - 20 12/15 Specimen Type: URINE No comment entered. Ordering Provider: SOBEIDA PERSON Report Released Date/Time: Oct 12, 2022 09:38 AM Reporting Lab: [facility] [address] [place], [place] [phone] Performing Lab: [facility] [address] [place] [phone] [facility] URINALYSI S (STL) URN.UROBILI NOGEN Normal mg/dL 12/15 Specimen Type: URINE No comment entered. Ordering Provider: SOBEIDA PERSON Report Released Date/Time: Oct 12, 2022 09:38 AM Reporting Lab: [place] [phone] Performing Lab: [place] [phone] URINALYSI S (STL) HEMOGLOBIN [MASS/VOLUM E] IN URINE BY TEST STRIP Negati vemg/d L 12/15 Specimen Type: URINE No comment entered. Ordering Provider: SOBEIDA PERSON Report Released Date/Time: Oct 12, 2022 09:38 AM Reporting Lab: [facility] [address] [place] [phone] Performing Lab: [facility] [address] [place] [address] [phone] [place] [address] URINALYSI S (STL) KETONES [MASS/VOLUM E] IN URINE BY TEST STRIP Negati vemg/d L 12/15 Specimen Type: URINE No comment entered. Ordering Provider: SOBEIDA PERSON Report Released Date/Time: Oct 12, 2022 09:38 AM Reporting Lab: [facility] [address] [place], [place] [phone] Performing Lab: [facility] [address] [place] [phone] [place] [address] URINALYSI S (STL) URN.LEUK.ES T. Negati vemg/d L 12/15 Specimen Type: URINE No comment entered. Ordering Provider: SOBEIDA PERSON Report Released Date/Time: Oct 12, 2022 09:38 AM Reporting Lab: [address] [phone] Performing Lab: [address] [phone] [facility] URINALYSI S (STL) SPECIFIC GRAVITY OF URINE 1.015 1.005 - 1.029 12/15 Specimen Type: URINE No comment entered. Ordering Provider: SOBEIDA PERSON Report Released Date/Time: Oct 12, 2022 09:38 AM Reporting Lab: [address] [phone] Performing Lab: [address] [phone] [place] [address] PROST. SPECIFIC AG.(PB-ST L) PROSTATE SPECIFIC AG [...] Oct 12, 2022 09:38 AM Reporting Lab: [address] [phone] Performing Lab: [address] [phone] [facility] HGA1C HEMOGLOBIN A1C/HEMOGLO BIN.TOTAL IN BLOOD 4.8 4.0 - 6.0 10/10 Specimen Type: BLOOD Comment: No hemolysis noted. Ordering Provider: SOBEIDA PERSON Report Released Date/Time: Oct 04, 2022 02:00 PM Reporting Lab: [address] [phone] Performing Lab: [address] [phone] [facility] LIPID PANEL (STL) CHOLESTEROL [MASS/VOLUM E] IN SERUM OR PLASMA 215 mg/dL 0 - 200 10/10 H Specimen Type: PLASMA Comment: No hemolysis noted. Ordering Provider: SOBEIDA PERSON Report Released Date/Time: Oct 04, 2022 02:00 PM Reporting Lab: [address] [address] Performing Lab: [address] [address] [facility] LIPID PANEL (STL) TRIGLYCERID E [MASS/VOLUM E] IN SERUM OR PLASMA 85 mg/dL 0 - 150 10/10 Specimen Type: PLASMA Comment: No hemolysis noted. Ordering Provider: SOBEIDA PERSON Report Released Date/Time: Oct 04, 2022 02:00 PM Reporting Lab: [address] [address] Performing Lab: [address] [address] [facility] LIPID PANEL (STL) CHOLESTEROL IN LDL [MASS/VOLUM E] IN SERUM OR PLASMA BY CALCULATION 148 mg/dL 10/10 Specimen Type: PLASMA Comment: No hemolysis noted. Ordering Provider: SOBEIDA PERSON Report Released Date/Time: Oct 04, 2022 02:00 PM Reporting Lab: [address] [address] Performing Lab: [address] [address] [facility] LIPID PANEL (STL) CHOLESTEROL IN HDL [MASS/VOLUM E] IN SERUM OR PLASMA 50 mg/dL 10/10 Specimen Type: PLASMA Comment: No hemolysis noted. Ordering Provider: SOBEIDA PERSON Report Released Date/Time: Oct 04, 2022 02:00 PM Reporting Lab: [address] [address] Performing Lab: [address] [address] [facility] Vital Signs Combined list of inpatient and outpatient Vital Signs from Department of [facility] and [facility] Affairs, ranging from 12 months to all on record, depending upon the facility. 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 Location Location Details Encounter Type Encounter Number Reason For Visit Attending Provider ADM Date DC Date Status Disposition Source [facility] OFFICE O/P EST MOD 30-39 MIN [id number] Diagnos is: ICD-10- CM F32.A Depress ion, unspeci fied SINA DOWNS JR 11/23 [facility] HC PRO PHONE CALL 5-10 MIN [id number] Diagnos is: ICD-10- CM Z59.811 Housing instabi lity, housed, with risk of homeles sness KEREN MEEKS L 11/[address] [facility] PROGRAM INTAKE ASSESSMENT [id number] Diagnos is: ICD-10- CM Z59.811 Housing instabi lity, housed, with risk of homeles sness NAJMA,REJI CENT 12/01 [facility] [place] [facility] PROGRAM INTAKE ASSESSMENT [id number] Diagnos is: ICD-10- CM Z59.811 Housing gerri aly, housed, with risk of homeles sness NAJMA,REJI CENT 12[facility] HC PRO PHONE CALL 21-30 MIN [id number] Diagnos is: ICD-10- CM F32.A Depress ion, unspeci fied CUCOCA THRYN 12/06 [facility] Outpatient Encounter [id number] NAYA,SOBEIDA D 12/12 [facility] Outpatient Encounter [id number] NAYA,SOBEIDA D 12/13 [facility] Outpatient Encounter [id number] Diagnos is: ICD-10- CM F32.A Depress ion, unspeci fied NAYA,SOBEIDA D 12/13 [facility] HC PRO PHONE CALL 21-30 MIN [id number] Diagnos is: ICD-10- CM Z71.9 Claims Processor ing, unspeci fied ZAIN ALSTON 12/14 [facility] Outpatient Encounter [id number] ZAIN ALSTON 12/18 [facility] HC PRO PHONE CALL 5-10 MIN [id number] Diagnos is: ICD-10- CM F32.A Depress ion, unspeci fied IVANIA HENSLEY 12/19 [facility] Outpatient Encounter [id number] 12/19 [facility] Outpatient Encounter [id number] 12/21 [facility] HC PRO PHONE CALL 11-20 MIN [id number] Diagnos is: ICD-10- CM F32.A Depress ion, unspeci fied CUCO,CA THRYN 12/27 [facility] PSYTX W PT 30 MINUTES [id number] Diagnos is: ICD-10- CM F32.A Depress ion, unspeci fied JENNIFER HOLM 12/29 [facility] [id number] Diagnos is: ICD-10- CM Z71.89 Other specifi ed clinical mental health counselor ALIREZA Gutierrez 12/29 [facility] N [facility] HC PRO PHONE CALL 5-10 MIN [id number] Diagnos is: ICD-10- CM Z59.00 Homeles sness unspeci fiKEREN Love 01/[address] [facility] Outpatient Encounter [id number] 01/18 [facility] Outpatient Encounter [id number] SOBEIDA PERSON 01/31 [facility] OFFICE O/P EST MOD 30-39 MIN [id number] Diagnos is: ICD-10- CM F32.A Depress ion, unspeci SINA Edmond DONATO M 02/05 [facility] [place]UNIZAT[place] ADMIN [id number] Diagnos is: ICD-10- CM Z23 Encount er for immuniz ation LIZZY DUVALL 02/05 [facility] Outpatient Encounter [id number] 10/10 [facility] Outpatient Encounter [id number] SOBEIDA PERSON 10/13 [facility] Outpatient Encounter [id number] 10/19 [facility] Outpatient Encounter [id number] 10/25 [facility] Outpatient Encounter [id number] SOBEIDA PERSON 10/29 [facility] Outpatient Encounter [id number] 11/05 [facility] Outpatient Encounter [id number] 11/05 [facility] Outpatient Encounter [id number] SOBEIDA PERSON 12/16 [facility] Outpatient Encounter [id number] 12/24 [facility] Outpatient Encounter [id number] 12/24 [facility] OFFICE O/P EST MOD 30 MIN [id number] Diagnos is: ICD-10- CM F32.A Depress ion, unspeci fied SOBEIDA PERSON 12/24 [facility] PSYTX CRISIS INITIAL 60 MIN [id number] [id number] Diagnos is: ICD-10- CM R45.851 Suicida l ideaANIA Aden T 12/24 [facility] Outpatient Encounter [id number] SOBEIDA PERSON 12/30 [facility] Outpatient Encounter [id number] SOFI CANADA 01/02 [facility] OFF/OP EST MAY X REQ PHY/QHP [id number] Diagnos is: ICD-10- CM R03.0 Elevate d blood-p ressure reading , w/o diagnos is of htn MARLENE THOMASON 01/03 [facility] OFF/OP EST MAY X REQ PHY/QHP [id number] Diagnos is: ICD-10- CM Z71.9 Claims Processor ing, unspeci Chichi Brenner 01/20 [facility] Outpatient Encounter [id number] 02/11 [facility] OFFICE O/P EST HI 40 MIN [id number] Diagnos is: ICD-10- CM F32.A Depress ion, unspeci fied TIMOTHYJERALD FraknELISSA 02/12 [facility] Outpatient Encounter [id number] 04/22 [facility] Outpatient Encounter [id number] MARIE E 05/14 [facility] Social History Combined list of available smoking, tobacco, and other social history from Department of Defense and Veterans Affairs facilities. Social History Type Response Date Comment Sourc e Tobacco smoking status NHIS VA-TOBACCO NEVER USED 12/25/2023 [facility] History of tobacco use VA-TOBACCO NEVER USED 09/26/2022 [facility] Plan of Care List of future care activities from Department of Veterans Affairs facilities. Additional future care activities may be listed in the Assessment and Plan section. Date/Time Care Activity Care Activity Detail Facili ty 06/23/2024 AMBULATORY - PSYCHIATRY AMBULATORY - PSYC HIATRY [facility]
== END 2024-06-10 14:26 | disposition home or self-care (01) ==
LOC: ANHLAB 14:26
PROVIDERS: PCP Emergency Medicine; Visit Provider Emergency Medicine
DX: Z12.5 Encounter for screening for malignant neoplasm of prostate (principal); E55.9 Vitamin D deficiency, unspecified; E78.5 Hyperlipidemia, unspecified
CPT/HCPCS: 36415; 80053; 80061; 82306; 84153; G0103